=== PATIENT | male | born 1970 | race Two or more races ===

== ENCOUNTER 2020-06-10 17:05 | Observation (INO) | payer OTHER, SELFPAY ==
[2020-06-10 17:09] VITALS: BP 122/88; PULSE 75; RESP 24; TEMP 36.9; O2SAT 97; BMI 33.9
[2020-06-10 17:42] VITALS: PULSE 70
--- NOTE | 2020-06-10 17:48 | ECG_ITS ---
Test Reason : intermittent chest pain Blood Pressure : / mmHG Vent. Rate : 075 BPM Atrial Rate : 075 BPM P-R Int : 148 ms QRS Dur : 096 ms QT Int : 410 ms P-R-T Axes : 036 -19 141 degrees QTc Int : 457 ms Normal sinus rhythm Possible Left atrial enlargement ST & Marked T wave abnormality, consider lateral ischemia (could be from LVH) Abnormal ECG When compared with ECG of 06-MAY-2018 13:08, Lateral ST-T changes more prominent. Referred By: Joni Fletcher Electronically Signed By:AMANDA MCKEE
--- NOTE | 2020-06-10 18:03 | ED_ITS ---
HPI - Chest Pain General Chief Complaint: Chest Pain Stated Complaint: Chest pressure Time Seen by Provider: 06/10/20 17:42 Source: patient Mode of arrival: ambulatory Limitations: no limitations History of Present Illness HPI narrative: Patient presents to ED for intermittent chest tightness/pressure since yesterday. Patient took 120 of aspirin this morning. 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 Patient states chest pain has significantly improved since coming to the ED. patient denies any swelling of lower extremity, coughing up blood, diarrhea, fever, or chills. MD complaint: chest pain Related Data Home Medications Medication Instructions Recorded Confirmed albuterol sulfate 90 mcg/actuation 2 puff INHALATION Q6H PRN 02/20/20 06/11/20 aerosol inhaler fluticasone propionate 220 1 puff INHALATION BID 02/20/20 06/11/20 mcg/actuation HFA aerosol inhaler fluticasone propionate 50 2 spray INTRANASAL DAILY 02/20/20 06/11/20 mcg/actuation nasal spray,suspension metformin 500 mg tablet 500 mg PO DAILY 02/20/20 06/11/20 verapamil 120 mg 24 hr 120 mg PO TID cap 02/20/20 06/11/20 capsule,extended release Previous Rx's Medication Instructions Recorded atorvastatin 20 mg tablet 20 mg PO BEDTIME 90 Days #90 tab 03/24/20 lancets 28 gauge 28 gauge TOPICAL TID #100 cap 06/08/20 Allergies Allergy/AdvReac Type Severity Reaction Status Date / Time Iodinated Contrast Media Allergy Mild HIVES Verified 06/10/20 17:09 [IV CONTRAST] Contrast Dye Allergy Unknown Hives Verified 06/10/20 17:09 Review of Systems Review of Systems: Yes all other systems are reviewed and are negative Constitutional: Constitutional: Reports as per HPI and Reports no additional constitutional complaints Eyes: Eyes: Reports as per HPI and Reports no additional eye complaints ENT: Reports system reviewed and no additional complaints, except as documented and Reports as per HPI Cardiovascular: Cardiovascular: Reports as per HPI, Reports no additional cardiovascular complaints and Reports chest pain Respiratory: Respiratory: Reports as per HPI and Reports no additional respiratory complaints Gastrointestinal: Gastrointestinal: Reports as per HPI and Reports no additional gastrointestinal complaints Musculoskeletal: Musculoskeletal: Reports no additional musculoskeletal complaints and Reports as per HPI Neurologic: Reports system reviewed and no additional complaints, except as documented and Reports as per HPI Psychiatric: Psychiatric: Reports no additional psychiatric complaints and Reports as per HPI [facility] Past Medical History Medical History (Updated 06/11/20 @ 01:44 by CALLY Chau) Diabetes Hx of carpal tunnel syndrome Hyperlipidemia Hypertension Obstructive sleep apnea Surgical History Hx of cardiac cath Hx of right inguinal hernia repair Family History Family History (Updated 02/20/20 @ 15:28 by Florecita Jensen [facility]) Paternal Grandfather Heart disease Skin cancer Maternal Grandmother Skin cancer Maternal Grandfather Prostate cancer Father Diabetes Social History Social History Alcohol intake: never Smoked in Last 30 Days: No Use of substances other than those prescribed or required for medical reasons: No Advance Directives: No Advance Directives Information Provided: No Physical Exam Vital Signs: Vital Signs: Last Vital Signs Temp 98.5 F 06/10/20 21:16 Pulse 67 06/10/20 21:16 Resp 18 06/10/20 21:16 BP 132/78 06/10/20 21:16 Pulse Ox 96 06/10/20 21:16 Body Mass Index 33.9 Const: General: cooperative, healthy appearing, comfortable, no acute distress, well developed, alert, awake and Physically active Orientation/co nsciousness: patient oriented x3 HENMT: Head: Yes normal to inspection and Yes No palpable skull fracture present Eyes: General: appearance normal, both eyes and all related structures Neck: Neck: Yes normal visual inspection, Yes full ROM, Yes no lymphadenopathy, Yes no meningeal signs, Yes trachea midline, Yes supple and No tender Chest: Chest palpation & inspection: normal inspection of the chest and normal palpation of entire chest wall Resp: Effort & Inspection: normal respiratory effort and able to speak in complete sentences Auscultation: clear to auscultation bilaterally Cardio: Jugular venous distension: no JVD Heart sounds: S1 normal heart sound present and S2 normal heart sound present GI: Inspection: Yes normal to inspection and No abdominal wall ecchymosis Palpation (GI): Soft to palpation, not firm, nontender, no guarding and not rigid : General: No CVA tenderness and Yes no CVA tenderness Back/Spine/Pelvis: Back: no CVA tenderness, No CVA tenderness and No back tenderness Skin: General skin exam: no rashes or lesions noted and elasticity normal Neuro: General: patient oriented x3, gait normal, no meningeal signs and CN's II-XI intact bilaterally Cranial nerves: Yes CN's II-XII intact bilaterally Extrem: Other: Negative for swelling, pitting edema, or calf pain General: Yes normal to inspection and Yes full ROM Psych: Appearance: grossly normal, well kempt and not disheveled Course Course Course Narrative: Patient will have cardiac evaluation including EKG troponin a nd chest x-ray. Patient given aspirin and nitrates. Patient also be swabbed for COVID-19. Reevaluation(s) Reevaluation #1: Patient's chest pain improved after 1 nitrate. We will get repeat troponin. Time: 18:06 Reevaluation #2: Patient's D-dimer came back elevated. Patient has anaphylactic reaction to IV contrast so patient will need ventilation perfusion scan. Patient COVID swab came back negative. Patient is 2nd troponin did not increase by 50%. Spoke with hospitalist who accepted patient for admission for V/Q scan in the morning due to elevated D-dimer. Presently patient has no chest pain. Time: 01:42 MDM - Chest Pain MDM Narrative Medical decision making narrative: Chest pain. Elevated D-dimer Lab Data Result diagrams: 06/10/20 18:06 06/10/20 18:06 Labs: Lab Results 06/10/20 06/10/20 06/10/20 Range/Units 18:06 18:06 18:06 WBC 8.9 (4.8-10.8) X10*3/uL RBC 5.50 (4.60-5.80) X10*6/uL Hgb 15.2 (14.0-18.0) g/dl Hct 45.0 (42-52) % MCV 81.8 (80-98) fL MCH 27.6 (27.0-33.0) pg MCHC 33.8 (31.0-36.0) g/dl RDW 13.2 (11.0-16.0) % Plt Count 164 (160-400) X10*3/uL MPV 10.3 (9.4-12.4) fL Immature Gran % (Auto) 0.3 (0.0-0.4) % Neut % (Auto) 67.8 (45-73) % Lymph % (Auto) 24.3 (20-40) % [place] % (Auto) 5.8 (2-11) % Eos % (Auto) 1.0 (0-4) % Baso % (Auto) 0.8 (0-2) % Lymph # (Auto) 2.2 (1.2-4.9) X10*3/uL [place] # (Auto) 0.5 (0.1-1.2) X10*3/uL Eos # (Auto) 0.1 (0.0-0.4) X10*3/uL Baso # (Auto) 0.1 (0.0-0.2) X10*3/uL Abs Immat Gran (auto) 0.03 (0.00-0.03) X10*3/uL Absolute Neuts (auto) 6.0 (2.0-8.3) X10*3/uL Absolute Nucleated RBC 0.000 (0.0-0.012) X10*3/uL Nucleated RBC % (auto) 0.0 (0.0-0.2) /100WBC PT 13.5 H (10.8-13.0) SEC INR 1.1 (0.9-1.1) APTT 36.3 (24.1-38.0) SEC D-Dimer 497 NG/ML Sodium 139 (135-145) mmol/L Potassium 3.9 (3.3-5.1) mmol/l Chloride 102 (96-108) mmol/L Carbon Dioxide 29 (22-29) mmol/L Anion Gap 12 (12-20) BUN 12 (9-16) mg/dL Creatinine 0.87 (0.5-1.4) mg/dL Estim Creat Clear Calc 133.5 Estimated GFR > 60 Random Glucose 89 (60-115) mg/dL Calcium 9.1 (8.4-10.2) mg/dL Ferritin 74 (20-250) ng/mL Total Bilirubin 0.5 (0.0-1.0) mg/dL AST 39 H (5-37) U/L ALT 62 H (0-40) U/L Alkaline Phosphatase 73 (39-117) U/L Lactate Dehydrogenase 230 (118-273) U/L Troponin I High Sens (<3.5-35.0) ng/L B-Natriuretic Peptide (<100) pg/mL Total Protein 7.7 (6.5-8.0) g/dL Albumin 4.7 (3.5-5.0) g/dL Procalcitonin ng/mL Coronavirus (PCR) (Negative) Influenza Type A (PCR) (Negative) Influenza Type B (PCR) (Negative) RSV RNA Qual (PCR) (Negative) 06/10/20 06/10/20 06/10/20 Range/Units 18:06 18:06 18:49 WBC (4.8-10.8) X10*3/uL RBC (4.60-5.80) X10*6/uL Hgb (14.0-18.0) g/dl Hct (42-52) % MCV (80-98) fL MCH (27.0-33.0) pg MCHC (31.0-36.0) g/dl RDW (11.0-16.0) % Plt Count (160-400) X10*3/uL MPV (9.4-12.4) fL Immature Gran % (Auto) (0.0-0.4) % Neut % (Auto) (45-73) % Lymph % (Auto) (20-40) % [place] % (Auto) (2-11) % Eos % (Auto) (0-4) % Baso % (Auto) (0-2) % Lymph # (Auto) (1.2-4.9) X10*3/uL [place] # (Auto) (0.1-1.2) X10*3/uL Eos # (Auto) (0.0-0.4) X10*3/uL Baso # (Auto) (0.0-0.2) X10*3/uL Abs Immat Gran (auto) (0.00-0.03) X10*3/uL Absolute Neuts (auto) (2.0-8.3) X10*3/uL Absolute Nucleated RBC (0.0-0.012) X10*3/uL Nucleated RBC % (auto) (0.0-0.2) /100WBC PT (10.8-13.0) SEC INR (0.9-1.1) APTT (24.1-38.0) SEC D-Dimer NG/ML Sodium (135-145) mmol/L Potassium (3.3-5.1) mmol/l Chloride (96-108) mmol/L Carbon Dioxide (22-29) mmol/L Anion Gap (12-20) BUN (9-16) mg/dL Creatinine (0.5-1.4) mg/dL Estim Creat Clear Calc Estimated GFR Random Glucose (60-115) mg/dL Calcium (8.4-10.2) mg/dL Ferritin (20-250) ng/mL Total Bilirubin (0.0-1.0) mg/dL AST (5-37) U/L ALT (0-40) U/L Alkaline Phosphatase (39-117) U/L Lactate Dehydrogenase (118-273) U/L Troponin I High Sens 36.1 H (<3.5-35.0) ng/L B-Natriuretic Peptide 57 (<100) pg/mL Total Protein (6.5-8.0) g/dL Albumin (3.5-5.0) g/dL Procalcitonin 0.06 ng/mL Coronavirus (PCR) NEGATIVE (Negative) Influenza Type A (PCR) NEGATIVE (Negative) Influenza Type B (PCR) NEGATIVE (Negative) RSV RNA Qual (PCR) NEGATIVE (Negative) 06/10/20 Range/Units 21:20 WBC (4.8-10.8) X10*3/uL RBC (4.60-5.80) X10*6/uL Hgb (14.0-18.0) g/dl Hct (42-52) % MCV (80-98) fL MCH (27.0-33.0) pg MCHC (31.0-36.0) g/dl RDW (11.0-16.0) % Plt Count (160-400) X10*3/uL MPV (9.4-12.4) fL Immature Gran % (Auto) (0.0-0.4) % Neut % (Auto) (45-73) % Lymph % (Auto) (20-40) % [place] % (Auto) (2-11) % Eos % (Auto) (0-4) % Baso % (Auto) (0-2) % Lymph # (Auto) (1.2-4.9) X10*3/uL [place] # (Auto) (0.1-1.2) X10*3/uL Eos # (Auto) (0.0-0.4) X10*3/uL Baso # (Auto) (0.0-0.2) X10*3/uL Abs Immat Gran (auto) (0.00-0.03) X10*3/uL Absolute Neuts (auto) (2.0-8.3) X10*3/uL Absolute Nucleated RBC (0.0-0.012) X10*3/uL Nucleated RBC % (auto) (0.0-0.2) /100WBC PT (10.8-13.0) SEC INR (0.9-1.1) APTT (24.1-38.0) SEC D-Dimer NG/ML Sodium (135-145) mmol/L Potassium (3.3-5.1) mmol/l Chloride (96-108) mmol/L Carbon Dioxide (22-29) mmol/L Anion Gap (12-20) BUN (9-16) mg/dL Creatinine (0.5-1.4) mg/dL Estim Creat Clear Calc Estimated GFR Random Glucose (60-115) mg/dL Calcium (8.4-10.2) mg/dL Ferritin (20-250) ng/mL Total Bilirubin (0.0-1.0) mg/dL AST (5-37) U/L ALT (0-40) U/L Alkaline Phosphatase (39-117) U/L Lactate Dehydrogenase (118-273) U/L Troponin I High Sens 30.5 (<3.5-35.0) ng/L B-Natriuretic Peptide (<100) pg/mL Total Protein (6.5-8.0) g/dL Albumin (3.5-5.0) g/dL Procalcitonin ng/mL Coronavirus (PCR) (Negative) Influenza Type A (PCR) (Negative) Influenza Type B (PCR) (Negative) RSV RNA Qual (PCR) (Negative) ECG Data ECG #1: Interpretation: Normal sinus rhythm. Left atrial enlargement. Ventricular rate 75. Pr interval 145. QRS 96. Negative STEMI. Discharge Plan Discharge Clinical Impression: Elevated d-dimer, Chest pain Patient Disposition: Admitted As Inpatient
--- NOTE | 2020-06-10 18:10 | XR_ITS ---
EXAMINATION: PORTABLE CHEST 1 VIEW CLINICAL INFORMATION: Chest pain . COMPARISON: 04/25/2018. TECHNIQUE: Portable frontal view of the chest was obtained. FINDINGS: The lungs are well expanded. No focal infiltrate, effusion, edema, or pneumothorax. Cardiac and mediastinal silhouettes are within normal limits for technique. No acute bony abnormality seen. XR/XR chest 1V IMPRESSION: No evidence of acute disease compared to 04/25/2018.
[2020-06-10 18:11] LABS: MANUAL DIFF FLAG NO
[2020-06-10 18:13] VITALS: BP 150/85; PULSE 75
[2020-06-10 18:13] LABS: Basophils Absolute Auto 0.1 X10*3/uL (0.0-0.2); Basophils Percent Auto 0.8 % (0-2); Eosinophils Absolute Auto 0.1 X10*3/uL (0.0-0.4); Hemoglobin 15.2 g/dl (14.0-18.0); Imm Gran Abs Auto 0.03 X10*3/uL (0.00-0.03); Imm Gran Pct Auto 0.3 % (0.0-0.4); Lymphocytes Absolute Auto 2.2 X10*3/uL (1.2-4.9); Lymphocytes Percent Auto 24.3 % (20-40); Mean Corpuscular HGB Conc 33.8 g/dl (31.0-36.0); Mean Corpuscular Hemoglobin 27.6 pg (27.0-33.0); Mean Corpuscular Volume 81.8 fL (80-98); Mean Platelet Volume 10.3 fL (9.4-12.4); Monocytes Absolute Auto 0.5 X10*3/uL (0.1-1.2); Monocytes Percent Auto 5.8 % (2-11); Neutrophils Percent Auto 67.8 % (45-73); Platelet Count 164 X10*3/uL (160-400); Red Cell Distribution Width 13.2 % (11.0-16.0); White Blood Count 8.9 X10*3/uL (4.8-10.8)
[2020-06-10] MEDS: 0.9 % Sodium Chloride 1,000 ML 999 ML IV (18:13)
[2020-06-10] MEDS: Aspirin Enteric Coated 81 MG TABLET.DR 162 MG PO (18:13)
[2020-06-10] MEDS: Nitroglycerin 0.4 MG TAB.SUBL SUBLINGUAL (18:13)
[2020-06-10 18:22] LABS: INTERNATIONAL NORM RATIO 1.1 (0.9-1.1); Prothrombin Time 13.5 SEC (10.8-13.0)
[2020-06-10 18:25] LABS: Partial Thromboplastin Time 36.3 SEC (24.1-38.0)
[2020-06-10 18:36] LABS: Alanine Aminotransferase 62 U/L (0-40); Albumin Level 4.7 g/dL (3.5-5.0); Alkaline Phosphatase 73 U/L (39-117); Anion Gap 12 (12-20); Aspartate Amino Transferase 39 U/L (5-37); Bilirubin Total 0.5 mg/dL (0.0-1.0); Blood Urea Nitrogen 12 mg/dL (9-16); Calcium 9.1 mg/dL (8.4-10.2); Carbon Dioxide 29 mmol/L (22-29); Chloride 102 mmol/L (96-108); Creatinine Clr Calc Pharmacy 133.5; Estimated Glomerular Filt Rate > 60; Glucose Random 89 mg/dL (60-115); Lactate Dehydrogenase 230 U/L (118-273); Potassium 3.9 mmol/l (3.3-5.1); Sodium 139 mmol/L (135-145); Total Protein 7.7 g/dL (6.5-8.0)
[2020-06-10 18:44] LABS: B Type Natriuretic Peptide 57 pg/mL (<100); Troponin-I High Sensitivity 36.1 ng/L (<3.5-35.0)
[2020-06-10 18:49] VITALS: BP 130/71; PULSE 83; RESP 20; O2SAT 98
[2020-06-10 18:55] LABS: Procalcitonin 0.06 ng/mL
[2020-06-10 18:57] LABS: Ferritin 74 ng/mL (20-250)
[2020-06-10] MEDS: Acetaminophen 325 MG TABLET 650 MG PO (18:57)
[2020-06-10 19:24] LABS: D Dimer 497 NG/ML
[2020-06-10 19:59] LABS: Influenza A PCR NEGATIVE (Negative); Influenza B PCR NEGATIVE (Negative); Resp Syncy Virus RNA Qual PCR NEGATIVE (Negative); SARS COV2 PCR INHOUSE NEGATIVE (Negative)
[2020-06-10 21:16] VITALS: BP 132/78; PULSE 67; RESP 18; TEMP 36.9; O2SAT 96
[2020-06-10 21:58] LABS: Troponin-I High Sensitivity 30.5 ng/L (<3.5-35.0)
--- NOTE | 2020-06-10 22:57 | PM.IMHP ---
History of Present Illness Date of Service: 06/10/20 Chief Complaint: Chest pain This is a 50-year-old male with past medical history of diabetes, hypertension, hyperlipidemia, who presents to the hospital with complaints of chest pain. Patient reports midsternal, 7/10, heavy pain that started yesterday. Pain is nonradiating, associated with shortness of breath on exertion. Resolves at rest. Pain is intermittent, lasting about 30 minutes, and resolving with rest. Usually occurs at random times. Patient denies any palpitation, denies any lower extremity edema, he denies any nausea or vomiting, no abdominal pain, no fevers or chills. He is complaining of urinary retention and difficulty releasing his urine every time he has to pee. On arrival to the ED hemodynamically stable with no significant abnormal vitals Labs are significant for normal WBC, hemoglobin of 15.2, sodium of 139, potassium 3.9 creatinine of 0.87, AST of 39, ALT of 62, high sensitivity troponin of 30.5, increased to 36.1 on repeat, BNP of 57. COVID-19 negative. D-dimer is elevated at 497. Chest x-ray negative for any abnormal findings. Past medical history: Diabetes, hypertension, hyperlipidemia, PAPA, mitral valve regurg Surgical history: Hernia repair, carpal tunnel release, Family history: Significant for heart disease in mom he is not clear at what age she had a heart attack, diabetes, hypertension Social history: Comes from home, distant history of smoking, alcohol use, does not use any illicit drugs Review of Systems Review of Systems: Yes all other systems are reviewed and are negative Neurologic: Reports system reviewed and no additional complaints, except as documented and Reports as per HPI [facility] Medical History (Updated 06/10/20 @ 23:11 by Vania Siddiqui MD) Diabetes Hx of carpal tunnel syndrome Hyperlipidemia Hypertension Obstructive sleep apnea Family History (Updated 02/20/20 @ 15:28 by Florecita Jensen [facility]) Paternal Grandfather Heart disease Skin cancer Maternal Grandmother Skin cancer Maternal Grandfather Prostate cancer Father Diabetes Surgical History Hx of cardiac cath Hx of right inguinal hernia repair Social History Alcohol intake: never Smoked in Last 30 Days: No Use of substances other than those prescribed or required for medical reasons: No Advance Directives: No Advance Directives Information Provided: No Meds Allergies Allergy/AdvReac Type Severity Reaction Status Date / Time Iodinated Contrast Media Allergy Mild HIVES Verified 06/10/20 17:09 [IV CONTRAST] Contrast Dye Allergy Unknown Hives Verified 06/10/20 17:09 Home Medications Medication Instructions Recorded Confirmed Type albuterol sulfate 90 mcg/actuation 2 puff INHALATION Q6H PRN 02/20/20 History aerosol inhaler fluticasone propionate 220 1 puff INHALATION BID 02/20/20 History mcg/actuation HFA aerosol inhaler fluticasone propionate 50 2 spray INTRANASAL DAILY 02/20/20 History mcg/actuation nasal spray,suspension metformin 500 mg tablet 500 mg PO DAILY 02/20/20 History verapamil 120 mg 24 hr 120 mg PO TID cap 02/20/20 History capsule,extended release Physical Exam Vital Signs and Narrative: Vital Signs: Last Vital Signs Temp 98.5 F 06/10/20 21:16 Pulse 67 06/10/20 21:16 Resp 18 06/10/20 21:16 BP 132/78 06/10/20 21:16 Pulse Ox 96 06/10/20 21:16 Body Mass Index 33.9 Const: General: cooperative and no acute distress Orientation/consciousness: patient oriented x3 Eyes: General: appearance normal, both eyes and all related structures Resp: Effort & Inspection: normal respiratory effort and able to speak in complete sentences Cardio: Rate: regular rate Rhythm: regular rhythm GI: Palpation (GI): Soft to palpation Auscultation: normal bowel sounds Skin: General skin exam: no rashes or lesions noted Neuro: General: patient oriented x3 Cognition (Neuro): normal cognition Extrem: General: Yes normal to inspection and Yes no pedal edema Results Labs CBC and Chem 7: 06/10/20 18:06 06/10/20 18:06 Labs: Laboratory Results - last 24 hr 06/10/20 06/10/20 06/10/20 18:06 18:06 18:06 MCV 81.8 MCH 27.6 MCHC 33.8 RDW 13.2 Plt Count 164 MPV 10.3 Immature Gran % (Auto) 0.3 Neut % (Auto) 67.8 Lymph % (Auto) 24.3 [place] % (Auto) 5.8 Eos % (Auto) 1.0 Baso % (Auto) 0.8 Lymph # (Auto) 2.2 [place] # (Auto) 0.5 Eos # (Auto) 0.1 Baso # (Auto) 0.1 Abs Immat Gran (auto) 0.03 Absolute Neuts (auto) 6.0 Absolute Nucleated RBC 0.000 Nucleated RBC % (auto) 0.0 PT 13.5 H INR 1.1 APTT 36.3 D-Dimer 497 Anion Gap 12 Estim Creat Clear Calc 133.5 Estimated GFR > 60 Random Glucose 89 Calcium 9.1 Ferritin 74 Total Bilirubin 0.5 AST 39 H ALT 62 H Alkaline Phosphatase 73 Lactate Dehydrogenase 230 Troponin I High Sens B-Natriuretic Peptide Total Protein 7.7 Albumin 4.7 Procalcitonin Coronavirus (PCR) Influenza Type A (PCR) Influenza Type B (PCR) RSV RNA Qual (PCR) 06/10/20 06/10/20 06/10/20 18:06 18:06 18:49 MCV MCH MCHC RDW Plt Count MPV Immature Gran % (Auto) Neut % (Auto) Lymph % (Auto) [place] % (Auto) Eos % (Auto) Baso % (Auto) Lymph # (Auto) [place] # (Auto) Eos # (Auto) Baso # (Auto) Abs Immat Gran (auto) Absolute Neuts (auto) Absolute Nucleated RBC Nucleated RBC % (auto) PT INR APTT D-Dimer Anion Gap Estim Creat Clear Calc Estimated GFR Random Glucose Calcium Ferritin Total Bilirubin AST ALT Alkaline Phosphatase Lactate Dehydrogenase Troponin I High Sens 36.1 H B-Natriuretic Peptide 57 Total Protein Albumin Procalcitonin 0.06 Coronavirus (PCR) NEGATIVE Influenza Type A (PCR) NEGATIVE Influenza Type B (PCR) NEGATIVE RSV RNA Qual (PCR) NEGATIVE 06/10/20 21:20 MCV MCH MCHC RDW Plt Count MPV Immature Gran % (Auto) Neut % (Auto) Lymph % (Auto) [place] % (Auto) Eos % (Auto) Baso % (Auto) Lymph # (Auto) [place] # (Auto) Eos # (Auto) Baso # (Auto) Abs Immat Gran (auto) Absolute Neuts (auto) Absolute Nucleated RBC Nucleated RBC % (auto) PT INR APTT D-Dimer Anion Gap Estim Creat Clear Calc Estimated GFR Random Glucose Calcium Ferritin Total Bilirubin AST ALT Alkaline Phosphatase Lactate Dehydrogenase Troponin I High Sens 30.5 B-Natriuretic Peptide Total Protein Albumin Procalcitonin Coronavirus (PCR) Influenza Type A (PCR) Influenza Type B (PCR) RSV RNA Qual (PCR) Imaging Radiologist's Impressions: Impressions Chest X-Ray 06/10/20 18:10 IMPRESSION: No evidence of acute disease compared to 04/25/2018. Assessment and Plan (1) Elevated d-dimer: Status: Acute (2) Elevated troponin: Status: Acute (3) Chest pain: Qualifiers: Chest pain type: unspecified Qualified Code(s): R07.9 - Chest pain, unspecified Status: Acute 50-year-old male with past medical history of hypertension, diabetes, who presents to the hospital with complaints of typical chest pain # chest pain - typical - high sensitivity troponin mildly elevated but repeat has no delta - HEART score 5 points placing him at 12-16.6% risk of MACE - risk factors incl;ude HTN, HLD, obesity Plan: - WIll admit to telemetry - Echocardiogram - Consult cardiology for possible cath if appropriate # Elevated D-dimer - Has no risk factors for PE, no recent travel or immobility - Has no lower extremity pain or swelling - Has no tachypnea or tachycardia Plan: - allergic to dye, will obtain V/Q scan in am # HTN - Stable -continue verapamil # DM - LDSSI - hold metformin - Diabetic diet, POC QIDAC DVT: lovenox
--- NOTE | 2020-06-11 | NM_ITS ---
EXAMINATION: NM LUNG IMAGE PERFUSION CLINICAL INFORMATION: Elevated d-dimer and chest pain. COMPARISON: None TECHNIQUE: Following intravenous administration of 4 mCi of 99m Tc MAA, imaging of both lungs were obtained multiple projections. Ventilation study was not performed. FINDINGS: On perfusion exam there is a normal flow seen to all segments of the lungs without any segmental or subsegmental defect. Ventilation study was not performed. NM/NM pul perfusion IMPRESSION: Normal perfusion scan.
[2020-06-11 06:12] VITALS: BP 129/79; PULSE 81; RESP 16; O2SAT 95
[2020-06-11 06:42] LABS: MANUAL DIFF FLAG NO
[2020-06-11 07:07] LABS: Anion Gap 9 (12-20); Blood Urea Nitrogen 12 mg/dL (9-16); Calcium 8.7 mg/dL (8.4-10.2); Carbon Dioxide 31 mmol/L (22-29); Chloride 101 mmol/L (96-108); Estimated Glomerular Filt Rate > 60; Glucose Random 116 mg/dL (60-115); Sodium 137 mmol/L (135-145)
[2020-06-11 07:16] LABS: Basophils Absolute Auto 0.1 X10*3/uL (0.0-0.2); Basophils Percent Auto 0.8 % (0-2); Eosinophils Absolute Auto 0.2 X10*3/uL (0.0-0.4); Eosinophils Percent Auto 2.3 % (0-4); Hemoglobin 14.8 g/dl (14.0-18.0); Imm Gran Abs Auto 0.04 X10*3/uL (0.00-0.03); Imm Gran Pct Auto 0.5 % (0.0-0.4); Lymphocytes Percent Auto 25.4 % (20-40); Mean Corpuscular HGB Conc 32.9 g/dl (31.0-36.0); Mean Corpuscular Hemoglobin 27.7 pg (27.0-33.0); Mean Corpuscular Volume 84.1 fL (80-98); Monocytes Absolute Auto 0.6 X10*3/uL (0.1-1.2); Monocytes Percent Auto 7.2 % (2-11); Neutrophils Percent Auto 63.8 % (45-73); Platelet Count 140 X10*3/uL (160-400); Red Blood Count 5.35 X10*6/uL (4.60-5.80); Red Cell Distribution Width 13.4 % (11.0-16.0); White Blood Count 7.8 X10*3/uL (4.8-10.8)
[2020-06-11 07:21] VITALS: BP 123/87; PULSE 67; RESP 16; TEMP 36.6; O2SAT 97
--- NOTE | 2020-06-11 09:36 | MHC.CM.PN ---
Met with patient and park interpreter in regards to discharge planning. Patient lives alone, ambulates independently and had no services prior to coming to the hospital. PCP verified. Patient denies having a HCP. Information provided but patient is not interested in completing one at this time. No services are anticipated to be needed because patient is not homebound. Patient will ambulate home when medically stable. [place] form explained and signed. Continue to monitor for d/c needs.
[2020-06-11 10:34] VITALS: BP 132/85; PULSE 77
[2020-06-11] MEDS: VerapamiL HCL 120 MG TABLET PO (10:34)
[2020-06-11] MEDS: Enoxaparin Sodium 40 MG/0.4 ML SYRINGE SUBCUT (10:35)
[2020-06-11] MEDS: Fluticasone Propionate Nasal 16 GM SPRAY 2 SPRAY NOSTRIL-B (10:35)
[2020-06-11] MEDS: 0.9 % Sodium Chloride Flush 3 ML SYRINGE IVFLUSH ×2 (10:35)
--- NOTE | 2020-06-11 10:45 | PM.CNCAR ---
History of Present Illness History of Present Illness Date of Service: 06/11/20 Consult reason: chest pain Chief complaint: R/O ACS Narrative: This is a cardiology consultation regarding chest pressure. He is a patient in our office in sees Dr. Davila. Last appointment was in July 2019. He has a background of hypertrophic cardiomyopathy. As he was complaining of palpitations, chest discomfort and shortness of breath, he was referred to [facility] for septal myectomy. But patient states that that never happened. He states that it is because of renal issues but I am not entirely clear what he is referring to as a creatinine is normal currently. Otherwise, he believes that the pandemic also caused some delays. In any case, he did not have the surgery as planned. Current admission is because of symptoms of chest pressure that he felt overnight. Prior to this, he states that he has been fairly okay and able to carry on without any major difficulties. He does not have any known coronary disease or myocardial infarction. In fact he underwent cardiac catheterization in 2018 that showed normal coronary arteries. Review of Systems Review of Systems: Yes all other systems are reviewed and are negative Cardiovascular: Cardiovascular: Reports as per HPI, Reports no additional cardiovascular complaints, Denies acrocyanosis, Denies cool extremities, Denies painful fingertips, Reports chest pain, Denies chest pain at rest, Denies diaphoresis, Denies syncope, Denies irregular heart rhythm, Denies claudication, Denies leg edema, Denies lightheadedness, Denies palpitations and Reports dyspnea Respiratory: Respiratory: Reports dyspnea Neurologic: Reports system reviewed and no additional complaints, except as documented, Reports as per HPI and Denies syncope Endocrine: Endocrine: Denies palpitations PMFSH Past Medical History Medical History (Updated 06/11/20 @ 10:51 by Cali Mueller MD) Diabetes Hx of carpal tunnel syndrome Hyperlipidemia Hypertension Hypertrophic cardiomyopathy Obstructive sleep apnea Family History Family History (Updated 02/20/20 @ 15:28 by Florecita Jensen CMA) Paternal Grandfather Heart disease Skin cancer Maternal Grandmother Skin cancer Maternal Grandfather Prostate cancer Father Diabetes Surgical History Surgical History Hx of cardiac cath Hx of right inguinal hernia repair Social History Social History Alcohol intake: never Smoked in Last 30 Days: No Use of substances other than those prescribed or required for medical reasons: No Advance Directives: No Advance Directives Information Provided: No service: No Current occupational status: unemployed Meds Allergies Allergy/AdvReac Type Severity Reaction Status Date / Time Iodinated Contrast Media Allergy Mild HIVES Verified 06/10/20 17:09 [IV CONTRAST] Contrast Dye Allergy Unknown Hives Verified 06/10/20 17:09 Home Medications Medication Instructions Recorded Confirmed Type albuterol sulfate 90 mcg/actuation 2 puff INHALATION Q6H PRN 02/20/20 06/11/20 History aerosol inhaler fluticasone propionate 220 1 puff INHALATION BID 02/20/20 06/11/20 History mcg/actuation HFA aerosol inhaler fluticasone propionate 50 2 spray INTRANASAL DAILY 02/20/20 06/11/20 History mcg/actuation nasal spray,suspension metformin 500 mg tablet 500 mg PO DAILY 02/20/20 06/11/20 History verapamil 1 tab PO TID 06/11/20 06/11/20 History Physical Exam Vital Signs: Vital Signs: Last Vital Signs Temp 98 F 06/11/20 07:21 Pulse 77 06/11/20 10:34 Resp 16 06/11/20 07:21 BP 132/85 06/11/20 10:34 Pulse Ox 97 06/11/20 07:21 Body Mass Index 33.9 Const: General: cooperative, comfortable and no acute distress Orientation/consciousness: patient oriented x3 HENMT: Other: Unremarkable Neck: Neck: Yes normal visual inspection Chest: Chest palpation & inspection: normal inspection of the chest Resp: Auscultation: clear to auscultation bilaterally, no crackles and no wheezes Cardio: Jugular venous distension: no JVD Palpation: normal PMI Heart sounds: S1 normal heart sound present, S2 normal heart sound present, no gallops, Murmur heart sound present systolic II/ and at the base (Seems to increase with Valsalva) and no rubs GI: Palpation (GI): Soft to palpation Back/Spine/Pelvis: Other: unremarkable Skin: General skin exam: no rashes or lesions noted Neuro: General: patient oriented x3 Extrem: General: Yes no clubbing, cyanosis or edema Psych: Mental Status: mental status grossly normal Results Labs and Meds Result diagrams: 06/11/20 06:37 06/11/20 06:37 Lab results: Laboratory Results - last 24 hr 06/10/20 06/10/20 06/10/20 18:06 18:06 18:06 WBC 8.9 RBC 5.50 Hgb 15.2 Hct 45.0 MCV 81.8 MCH 27.6 MCHC 33.8 RDW 13.2 Plt Count 164 MPV 10.3 Immature Gran % (Auto) 0.3 Neut % (Auto) 67.8 Lymph % (Auto) 24.3 [place] % (Auto) 5.8 Eos % (Auto) 1.0 Baso % (Auto) 0.8 Lymph # (Auto) 2.2 [place] # (Auto) 0.5 Eos # (Auto) 0.1 Baso # (Auto) 0.1 Abs Immat Gran (auto) 0.03 Absolute Neuts (auto) 6.0 Absolute Nucleated RBC 0.000 Nucleated RBC % (auto) 0.0 PT 13.5 H INR 1.1 APTT 36.3 D-Dimer 497 Sodium 139 Potassium 3.9 Chloride 102 Carbon Dioxide 29 Anion Gap 12 BUN 12 Creatinine 0.87 Estim Creat Clear Calc 133.5 Estimated GFR > 60 Random Glucose 89 Calcium 9.1 Ferritin 74 Total Bilirubin 0.5 AST 39 H ALT 62 H Alkaline Phosphatase 73 Lactate Dehydrogenase 230 Troponin I High Sens B-Natriuretic Peptide Total Protein 7.7 Albumin 4.7 Procalcitonin Coronavirus (PCR) Influenza Type A (PCR) Influenza Type B (PCR) RSV RNA Qual (PCR) 06/10/20 06/10/20 06/10/20 18:06 18:06 18:49 WBC RBC Hgb Hct MCV MCH MCHC RDW Plt Count MPV Immature Gran % (Auto) Neut % (Auto) Lymph % (Auto) [place] % (Auto) Eos % (Auto) Baso % (Auto) Lymph # (Auto) [place] # (Auto) Eos # (Auto) Baso # (Auto) Abs Immat Gran (auto) Absolute Neuts (auto) Absolute Nucleated RBC Nucleated RBC % (auto) PT INR APTT D-Dimer Sodium Potassium Chloride Carbon Dioxide Anion Gap BUN Creatinine Estim Creat Clear Calc Estimated GFR Random Glucose Calcium Ferritin Total Bilirubin AST ALT Alkaline Phosphatase Lactate Dehydrogenase Troponin I High Sens 36.1 H B-Natriuretic Peptide 57 Total Protein Albumin Procalcitonin 0.06 Coronavirus (PCR) NEGATIVE Influenza Type A (PCR) NEGATIVE Influenza Type B (PCR) NEGATIVE RSV RNA Qual (PCR) NEGATIVE 06/10/20 06/11/20 06/11/20 21:20 06:37 06:37 WBC 7.8 RBC 5.35 Hgb 14.8 Hct 45.0 MCV 84.1 MCH 27.7 MCHC 32.9 RDW 13.4 Plt Count 140 L MPV 10.0 Immature Gran % (Auto) 0.5 H Neut % (Auto) 63.8 Lymph % (Auto) 25.4 [place] % (Auto) 7.2 Eos % (Auto) 2.3 Baso % (Auto) 0.8 Lymph # (Auto) 2.0 [place] # (Auto) 0.6 Eos # (Auto) 0.2 Baso # (Auto) 0.1 Abs Immat Gran (auto) 0.04 H Absolute Neuts (auto) 5.0 Absolute Nucleated RBC 0.000 Nucleated RBC % (auto) 0.0 PT INR APTT D-Dimer Sodium 137 Potassium 4.0 Chloride 101 Carbon Dioxide 31 H Anion Gap 9 L BUN 12 Creatinine 0.96 Estim Creat Clear Calc 121.0 Estimated GFR > 60 Random Glucose 116 H Calcium 8.7 Ferritin Total Bilirubin AST ALT Alkaline Phosphatase Lactate Dehydrogenase Troponin I High Sens 30.5 B-Natriuretic Peptide Total Protein Albumin Procalcitonin Coronavirus (PCR) Influenza Type A (PCR) Influenza Type B (PCR) RSV RNA Qual (PCR) ECG Attestation: I personally reviewed and interpreted this ECG as follows: Interpretation: EKG shows sinus rhythm, 75/Min; with ST-T changes in the lateral leads with inverted T-waves. The lateral T inversions are more prominent than before. Imaging Radiologist's impression: Impressions Chest X-Ray 06/10/20 18:10 IMPRESSION: No evidence of acute disease compared to 04/25/2018. Pulmonary Perfusion Imaging 06/11/20 00:00 IMPRESSION: Normal perfusion scan. Assessment and Plan (1) Precordial chest pain: Status: Acute (2) Hypertrophic cardiomyopathy: Status: Acute Cardiac studies were reviewed. He underwent cardiac catheterization 2018. At that time, he had normal coronary arteries. He had a resting gradient of 10-15 mm across LVOT but during Valsalva, it increased to 70 mm Hg. There was also post PVC increase in gradient consistent with hypertrophic obstructive cardiomyopathy. Last echocardiogram is from 2018. That showed LVEF of 65 70% with moderate to severe mitral regurgitation and overall consistent with hypertrophic cardiomyopathy. There was moderate a symmetric hypertrophy and systolic anterior motion of mitral valve as well. His current symptoms of chest pressure again probably from the hypertrophic cardiomyopathy itself. Troponins are minimally abnormal from the same. In this setting, no specific inpatient care necessary. He can be discharged home. Follow-up will be arranged in our office.
--- NOTE | 2020-06-11 11:40 | PM.DS ---
DS: Providers Provider Date of Service: 06/11/20 Date of admission: 06/10/20 23:00 Date of discharge: 06/11/20 Primary care physician: Maricarmen Medel MD Admitting clinician: Johnny Sanchez Consults: 06/10/20 23:00 Consult to Cardiology Routine Consulting Provider: Cali Mueller Reason for consultation: typical chest pain, r/o Has provider been notified: No HP as per Dr. Wells This is a 50-year-old male with past medical history of diabetes, hypertension, hyperlipidemia, who presents to the hospital with complaints of chest pain. Patient reports midsternal, 7/10, heavy pain that started yesterday. Pain is nonradiating, associated with shortness of breath on exertion. Resolves at rest. Pain is intermittent, lasting about 30 minutes, and resolving with rest. Usually occurs at random times. Patient denies any palpitation, denies any lower extremity edema, he denies any nausea or vomiting, no abdominal pain, no fevers or chills. He is complaining of urinary retention and difficulty releasing his urine every time he has to pee. On arrival to the ED hemodynamically stable with no significant abnormal vitals Labs are significant for normal WBC, hemoglobin of 15.2, sodium of 139, potassium 3.9 creatinine of 0.87, AST of 39, ALT of 62, high sensitivity troponin of 30.5, increased to 36.1 on repeat, BNP of 57. COVID-19 negative. D-dimer is elevated at 497.Chest x-ray negative for any abnormal findings . Hospital Course. Chest pain resolved, troponins remained flat. Elevated ddimer prompted VQ scan which was negative for PE. Treated with aspirin, statin and a dose of nitro in the ED. Vital signs remained stable. Seen and examined by [facility] [place]. From cardiac standpoint he is ok for discharge. He should continue with his current regime and follow up with cardiology if he needs a repeat echocardiogram. Attending physician on discharge: Johnny Sanchez Discharging clinician: La Nena Hess DS: Diagnosis Discharge Diagnosis (1) Precordial chest pain: Status: Acute (2) Hypertrophic cardiomyopathy: Status: Acute Problem details: Normal cardiac cath in 2018, echo 2018 EF 65-70% DS: Medications Discharge Medications Home Medications: Home Medications Medication Instructions Recorded Confirmed albuterol sulfate 90 mcg/actuation 2 puff INHALATION Q6H PRN 02/20/20 06/11/20 aerosol inhaler fluticasone propionate 220 1 puff INHALATION BID 02/20/20 06/11/20 mcg/actuation HFA aerosol inhaler fluticasone propionate 50 2 spray INTRANASAL DAILY 02/20/20 06/11/20 mcg/actuation nasal spray,suspension metformin 500 mg tablet 500 mg PO DAILY 02/20/20 06/11/20 verapamil 1 tab PO TID 06/11/20 06/11/20 Previous Rx's Medication Instructions Recorded atorvastatin 20 mg tablet 20 mg PO BEDTIME 90 Days #90 tab 03/24/20 lancets 28 gauge 28 gauge TOPICAL TID #100 cap 06/08/20 DS: Summary Time Spent with Patient Time attestation: Total time spent providing and/or coordinating discharge services: greater than 30 minutes Discharge coordination time: Greater than 30 minutes Physical Exam Vital Signs: Vital Signs: Last Vital Signs Temp 98 F 06/11/20 07:21 Pulse 77 06/11/20 10:34 Resp 16 06/11/20 07:21 BP 132/85 06/11/20 10:34 Pulse Ox 97 06/11/20 07:21 Body Mass Index 33.9 Appearing in no acute distress head is normocephalic atraumatic eyes pupils are PERRLA sclera is anicteric mouth throat mucous membranes are intact and moist neck is supple no lymphadenopathy, no JVD noted lung sounds are clear to auscultation heart regular rate rhythm, clear S1, S2 positive bowel sounds, abdomen is soft, nontender neuro patient is alert x3, no focal deficits DS: Data Data Completed and Pending Labs on day of discharge: Laboratory Tests 06/10/20 06/10/20 06/10/20 18:06 18:06 18:06 WBC 8.9 RBC 5.50 Hgb 15.2 Hct 45.0 MCV 81.8 MCH 27.6 MCHC 33.8 RDW 13.2 Plt Count 164 MPV 10.3 Immature Gran % (Auto) 0.3 Neut % (Auto) 67.8 Lymph % (Auto) 24.3 [place] % (Auto) 5.8 Eos % (Auto) 1.0 Baso % (Auto) 0.8 Lymph # (Auto) 2.2 [place] # (Auto) 0.5 Eos # (Auto) 0.1 Baso # (Auto) 0.1 Abs Immat Gran (auto) 0.03 Absolute Neuts (auto) 6.0 Absolute Nucleated RBC 0.000 Nucleated RBC % (auto) 0.0 PT 13.5 H INR 1.1 APTT 36.3 D-Dimer 497 Sodium 139 Potassium 3.9 Chloride 102 Carbon Dioxide 29 Anion Gap 12 BUN 12 Creatinine 0.87 Estim Creat Clear Calc 133.5 Estimated GFR > 60 Random Glucose 89 Calcium 9.1 Ferritin 74 Total Bilirubin 0.5 AST 39 H ALT 62 H Alkaline Phosphatase 73 Lactate Dehydrogenase 230 Troponin I High Sens B-Natriuretic Peptide Total Protein 7.7 Albumin 4.7 Procalcitonin Coronavirus (PCR) Influenza Type A (PCR) Influenza Type B (PCR) RSV RNA Qual (PCR) 06/10/20 06/10/20 06/10/20 18:06 18:06 18:49 WBC RBC Hgb Hct MCV MCH MCHC RDW Plt Count MPV Immature Gran % (Auto) Neut % (Auto) Lymph % (Auto) [place] % (Auto) Eos % (Auto) Baso % (Auto) Lymph # (Auto) [place] # (Auto) Eos # (Auto) Baso # (Auto) Abs Immat Gran (auto) Absolute Neuts (auto) Absolute Nucleated RBC Nucleated RBC % (auto) PT INR APTT D-Dimer Sodium Potassium Chloride Carbon Dioxide Anion Gap BUN Creatinine Estim Creat Clear Calc Estimated GFR Random Glucose Calcium Ferritin Total Bilirubin AST ALT Alkaline Phosphatase Lactate Dehydrogenase Troponin I High Sens 36.1 H B-Natriuretic Peptide 57 Total Protein Albumin Procalcitonin 0.06 Coronavirus (PCR) NEGATIVE Influenza Type A (PCR) NEGATIVE Influenza Type B (PCR) NEGATIVE RSV RNA Qual (PCR) NEGATIVE 06/10/20 06/11/20 06/11/20 21:20 06:37 06:37 WBC 7.8 RBC 5.35 Hgb 14.8 Hct 45.0 MCV 84.1 MCH 27.7 MCHC 32.9 RDW 13.4 Plt Count 140 L MPV 10.0 Immature Gran % (Auto) 0.5 H Neut % (Auto) 63.8 Lymph % (Auto) 25.4 [place] % (Auto) 7.2 Eos % (Auto) 2.3 Baso % (Auto) 0.8 Lymph # (Auto) 2.0 [place] # (Auto) 0.6 Eos # (Auto) 0.2 Baso # (Auto) 0.1 Abs Immat Gran (auto) 0.04 H Absolute Neuts (auto) 5.0 Absolute Nucleated RBC 0.000 Nucleated RBC % (auto) 0.0 PT INR APTT D-Dimer Sodium 137 Potassium 4.0 Chloride 101 Carbon Dioxide 31 H Anion Gap 9 L BUN 12 Creatinine 0.96 Estim Creat Clear Calc 121.0 Estimated GFR > 60 Random Glucose 116 H Calcium 8.7 Ferritin Total Bilirubin AST ALT Alkaline Phosphatase Lactate Dehydrogenase Troponin I High Sens 30.5 B-Natriuretic Peptide Total Protein Albumin Procalcitonin Coronavirus (PCR) Influenza Type A (PCR) Influenza Type B (PCR) RSV RNA Qual (PCR) Discharge Plan Discharge Anticipated Discharge Date/Time: 06/11/20 11:37 Patient Disposition: Home, Self-Care Referrals: Maricarmen Dan MD [Primary Care Provider] - Discharge Medications: Continued atorvastatin 20 mg tablet 20 mg PO BEDTIME 90 Days Qty: 90 RF: 3 lancets [FreeStyle Lancets] 28 gauge misc 28 gauge topical TID Qty: 100 RF: 1 verapamil 120 mg tablet 1 tab PO TID RF: 0 metformin 500 mg tablet 500 mg PO DAILY RF: 0 albuterol sulfate 90 mcg/actuation HFA aerosol inhaler 2 puff inhalation Q6H PRN (Reason: Dyspnea) RF: 0 fluticasone propionate 50 mcg/actuation spray,suspension 2 spray intranasal DAILY RF: 0 Flovent HFA 220 mcg/actuation HFA aerosol inhaler 1 puff inhalation BID RF: 0 Discharge Orders: Discharge Order (Routine); Ordered 06/11/20 Ordered By: La Nena Hess Diet: low salt diet Activity on Discharge: As tolerated Patient Instructions: Chest Pain (ED) Visit Report Forms: Patient Portal Discharge page Care Plan Goals: Take all medications as prescibed Health Concerns: Chest pain Plan of Treatment: Follow up with [facility] as needed and primary care provider
== END 2020-06-11 13:42 | disposition home or self-care (01) ==
LOC: HO.ED 17:52 → HO.EDOVER 23:27
PROVIDERS: Physician Assistant; Admitting Provider Internal Medicine; Emergency Provider Emergency Medicine; PCP Internal Medicine; Visit Provider Hospitalist
DX: R07.89 Other chest pain (principal); R79.89 Other specified abnormal findings of blood chemistry; R77.8 Other specified abnormalities of plasma proteins; I42.2 Other hypertrophic cardiomyopathy; E11.9 Type 2 diabetes mellitus without complications; E78.5 Hyperlipidemia, unspecified; I10 Essential (primary) hypertension; G47.33 Obstructive sleep apnea (adult) (pediatric); R06.00 Dyspnea, unspecified; R94.31 Abnormal electrocardiogram [ECG] [EKG]; Z91.041 Radiographic dye allergy status; Z20.822 Contact with and (suspected) exposure to COVID-19; Z98.890 Other specified postprocedural states; Z86.69 Personal history of other diseases of the nervous system and sense organs; Z87.19 Personal history of other diseases of the digestive system; Z79.84 Long term (current) use of oral hypoglycemic drugs; Z79.899 Other long term (current) drug therapy
CPT/HCPCS: 0241U; 36415; 71045; 78580; 80048; 80053; 82728; 83615; 83880; 84145; 84484; 85025; 85379; 85610; 85730; 93005; 96360; 99219; 99284; A9540; J1650

== ENCOUNTER → 2020-06-13 14:09 | Outpatient (BNVA) | payer OTHER, SELFPAY | PROVIDERS: PCP Internal Medicine; Visit Provider Internal Medicine Cardiovascular Disease | DX: I42.2 Other hypertrophic cardiomyopathy (principal); I10 Essential (primary) hypertension | CPT/HCPCS: 93005; 99212 ==

== ENCOUNTER 2020-07-16 21:01 | Emergency (ER) | payer OTHER, SELFPAY ==
[2020-07-16 21:10] VITALS: BP 114/74; PULSE 82; RESP 18; TEMP 36.8; O2SAT 98; BMI 36.2
[2020-07-16 21:42] LABS: Glucose Urine UA NEG (NEG); Leukocyte Esterase Urine NEG (NEG); Nitrite Urine NEG (NEG); Specific Gravity - Urine 1.025 (1.005-1.025); Urine Blood TRACE (NEG); Urine Ketones NEG (NEG); Urine Protein NEG (NEG-TRACE)
[2020-07-16 21:54] LABS: Appearance Urine CLEAR; Color Urine YELLOW
[2020-07-16 22:09] LABS: RBC Urine 0-2 /HPF (0); WBC Urine 0 /HPF (0-4)
[2020-07-17 00:13] VITALS: BP 135/82; PULSE 82; RESP 16; TEMP 36.7; O2SAT 97
--- NOTE | 2020-07-17 01:19 | ED_ITS ---
HPI - Male Genitourinary General Chief complaint: Abdominal Pain Stated complaint: ABD PAIN Time Seen by Provider: 07/17/20 01:15 Source: patient and deaf interpreter Mode of arrival: ambulatory Limitations: no limitations History of Present Illness HPI Narrative: 50-year-old male history of diabetes, came in for concern of redness on his penis, patient had a history of to incidence of unprotected sex with 2 different partner that the confirmed to him that they were clean from STDs disease, patient declined any urethral discharge, no UTI symptoms, no dysuria or urinary frequency. No fever, no chills, patient admitted that his diabetes under poor control. Patient is concerned today that the symptoms he had is from having unprotected sex with 2 different partners. Related Data Home Medications Medication Instructions Recorded Confirmed albuterol sulfate 90 mcg/actuation 2 puff INHALATION Q6H PRN 02/20/20 06/13/20 aerosol inhaler fluticasone propionate 220 1 puff INHALATION BID 02/20/20 06/13/20 mcg/actuation HFA aerosol inhaler fluticasone propionate 50 2 spray INTRANASAL DAILY 02/20/20 06/13/20 mcg/actuation nasal spray,suspension metformin 500 mg tablet 500 mg PO DAILY 02/20/20 06/13/20 Previous Rx's Medication Instructions Recorded atorvastatin 20 mg tablet 20 mg PO BEDTIME 90 Days #90 tab 03/24/20 lancets 28 gauge 28 gauge TOPICAL TID #100 cap 06/08/20 amoxicillin 500 mg tablet 500 mg PO ONCE 1 Days #4 tab 06/19/20 verapamil 240 mg 24 hr 240 mg PO BID 30 Days #60 cap 07/09/20 capsule,extended release nystatin 1 appl TOPICAL TID #30 g 07/17/20 Allergies Allergy/AdvReac Type Severity Reaction Status Date / Time Iodinated Contrast Media Allergy Mild HIVES Verified 07/16/20 21:10 [IV CONTRAST] Contrast Dye Allergy Unknown Hives Verified 07/16/20 21:10 Review of Systems Review of Systems: All other systems are reviewed and are negative Constitutional: Reports as per HPI and Reports no additional constitutional complaints Eyes: Reports as per HPI and Reports no additional eye complaints Reports system reviewed and no additional complaints, except as documented Cardiovascular: Reports as per HPI and Reports no additional cardiovascular complaints Respiratory: Reports as per HPI and Reports no additional respiratory complaints Gastrointestinal: Reports as per HPI and Reports no additional gastrointestinal complaints Genitourinary: Reports no additional female genitourinary complaints Musculoskeletal: Reports no additional musculoskeletal complaints Skin/Breast: Reports system reviewed and no additional complaints, except as docu Psychiatric: Reports no additional psychiatric complaints Endocrine: Reports no additional endocrine complaints Hematologic/Lymphatic: Reports no additional hematologic/lymphatic complaints Allergic/Immunologic: Reports no additional allergic/immunologic complaints Reports system reviewed and no additional complaints, except as documented and Reports Abnormal speech present [facility] Past Medical History Medical History Diabetes Hx of carpal tunnel syndrome Hyperlipidemia Hypertension Hypertrophic cardiomyopathy Obstructive sleep apnea Surgical History (Reviewed 07/17/20 @ :22 by Eugenia Reyna MD) Hx of cardiac cath Hx of right inguinal hernia repair Family History Family History (Reviewed 07/17/20 @ : by Eugenia Reyna MD) Paternal Grandfather Heart disease Skin cancer Maternal Grandmother Skin cancer Maternal Grandfather Prostate cancer Father Diabetes Social History Social History Alcohol intake: never Advance Directives: No service: No Current occupational status: unemployed Physical Exam Vital Signs: Vital Signs: Last Vital Signs Temp 98.1 F 07/17/20 00:13 Pulse 82 07/17/20 00:13 Resp 16 07/17/20 00:13 BP 135/82 07/17/20 00:13 Pulse Ox 97 07/17/20 00:13 Body Mass Index 36.2 Vital signs have been reviewed as appeared to be correct. Blood pressure in the high range, Heart rate normal. Respiration rate normal. Temperature normal. Oxygen saturation normal. Appearance: Alert. Oriented X3. No acute distress. Head: Normal external exam. Normocephalic. Atraumatic. No Lora signs noted. No raccoon eyes noted Eyes: PERRLA. EOMI. Conjunctiva and sclera normal. Eyelids normal. ENT: TM's Normal. Pharynx normal. Uvula midline. Moist mucous membranes. No trismus noted. No drooling noted. No muffled voice noted. Neck: Normal inspection. Neck supple. FROM. No adenopathy. Thyroid Normal. No meningeal signs. No neck mass noted. CVS: Normal heart rate and rhythm. Heart sound normal. No murmurs noted. Pulses normal throughout. Respiratory: No respiratory distress. Painless inspiration. Breath sounds normal. No wheezes/rales/rhonchi noted. Chest nontender. No accessory muscle usage noted or decreased air movement noted. Abdomen: Soft and nontender. Bowel sounds normal in all 4 quadrants. No distention noted. No organomegaly noted. No visible injury noted. : Uncircumcised, foreskin is easily retracted, redness of the glans of penis, otherwise no lesion or rashes, no lymph node enlargement. Testicular exam is nontender, intact cremasteric reflex. Back: No CVA tenderness. Full range of motion noted. Skin: Skin warm and dry. Normal skin color. Normal skin turgor. No rashes/lesions/lacerations noted. Extremities: No lower extremity edema. Extremities exhibit normal range of motion. Extremities nontender. Neuro: Oriented X 3. No motor deficit. No sensory deficit. Reflexes normal. Course Course Course Narrative: Diabetic patient presented with balanitis will start patient on nystatin as, patient was educated for better diabetes control. Patient had history of unprotected sex with 2 partners, no typical symptoms for STDs, well test urine for STDs. MDM - Male Genitourinary Lab Data Labs: Lab Results 07/16/20 Range/Units 21:25 Urine Color YELLOW Urine Appearance CLEAR Urine pH 6.0 (5.0-8.0) Ur Specific [place] 1.025 (1.005-1.025) Urine Protein NEG (NEG-TRACE) MG/DL Urine Glucose (UA) NEG (NEG) MG/DL Urine Ketones NEG (NEG) MG/DL Urine Blood TRACE (NEG) Urine Nitrite NEG (NEG) Ur Leukocyte Esterase NEG (NEG) Urine RBC 0-2 (0) /HPF Urine WBC 0 (0-4) /HPF Ur Squamous Epith Cells NONE /LPF Urine Bacteria NONE /LPF Discharge Plan Discharge Clinical Impression: Balanitis Patient Disposition: Home, Self-Care Instructions: Balanitis (ED) Prescriptions: New nystatin 100,000 unit/gram ointment 1 appl topical TID Qty: 30 RF: 0 No Action atorvastatin 20 mg tablet 20 mg PO BEDTIME 90 Days Qty: 90 RF: 3 lancets [FreeStyle Lancets] 28 gauge misc 28 gauge topical TID Qty: 100 RF: 1 amoxicillin 500 mg tablet 500 mg PO ONCE 1 Days Qty: 4 RF: 0 verapamil 240 mg capsule,ext rel. pellets 24 hr 240 mg PO BID 30 Days Qty: 60 RF: 5 metformin 500 mg tablet 500 mg PO DAILY RF: 0 albuterol sulfate 90 mcg/actuation HFA aerosol inhaler 2 puff inhalation Q6H PRN (Reason: Dyspnea) RF: 0 fluticasone propionate 50 mcg/actuation spray,suspension 2 spray intranasal DAILY RF: 0 Flovent HFA 220 mcg/actuation HFA aerosol inhaler 1 puff inhalation BID RF: 0 Referrals: Maricarmen Dan MD [Primary Care Provider] - 2 days
[2020-07-17 01:37] VITALS: BP 144/100; PULSE 71; RESP 16; TEMP 37; O2SAT 99
[2020-07-17 01:41] LABS: Glucose, Whole Blood 133 mg/dL (60-115)
[2020-07-17 02:00] VITALS: BP 143/84; PULSE 84; RESP 18; O2SAT 100
--- NOTE | 2020-07-17 02:04 | PC.NURSE ---
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 unsure if able to be pulled from floor.
[2020-07-18 16:12] LABS: C. trachomatis RNA TMA NOT DETECTED (NOT DETECTED); N. gonorrhoeae RNA TMA NOT DETECTED (NOT DETECTED)
== END 2020-07-17 02:14 | disposition home or self-care (01) ==
PROVIDERS: Emergency Provider Emergency Medicine; PCP Internal Medicine
DX: N48.1 Balanitis (principal); R10.30 Lower abdominal pain, unspecified; E11.9 Type 2 diabetes mellitus without complications; I10 Essential (primary) hypertension; Z79.899 Other long term (current) drug therapy; Z79.84 Long term (current) use of oral hypoglycemic drugs; Z20.2 Contact with and (suspected) exposure to infections with a predominantly sexual mode of transmission
CPT/HCPCS: 36415; 81001; 82947; 87491; 87591; 99283; 99284

== ENCOUNTER → 2020-07-23 12:57 | Outpatient (REF) | payer OTHER, SELFPAY ==
--- NOTE | 2020-07-23 13:00 | CA_ITS ---
Transthoracic Echocardiogram Patient (Last, First, Middle): Jefe Huddleston, Gender: Male Date of : 1970 Age: 50 Procedure Date: 07/23/2020 Procedure Type: Transthoracic Echocardiogram Location: OP Height: 180.34 cm Weight: 113.4 kg BSA: 2.32 m2 Heart Rate: bpm BP: 139 / 80 mmHg Assistant Nurse Manager: DOT Referring MD: Donato Davila MD Symptoms: I42.2 - Other hypertrophic cardiomyopathy Study Quality: Fair ECG Rhythm: Sinus Conclusions: - The left ventricular systolic function is normal. The visually estimated ejection fraction is between 65-70%. - Moderate to severe concentric left ventricular hypertrophy. Septal thickness- 1.4 cm. Posterior wall - 1.4 cm. - Peak resting LV outflow tract gradient 18 mm Hg; with Valsalva 75 mm Hg. - Left ventricular global endocardial peak longitudinal strain 14.6% (mildly reduced). - No obvious valvular pathology seen on this study. Findings Left Ventricle Normal left ventricular cavity size. The left ventricular systolic function is normal. The visually estimated ejection fraction is between 65-70%. E/E prime ratio is between 8 and 15 consistent with indeterminate filling pressures. Evidence suggests grade I (mild) diastolic dysfunction. Moderate to severe concentric left ventricular hypertrophy. Septal thickness- 1.4 cm. Posterior wall - 1.4 cm. Peak resting LV outflow tract gradient 18 mm Hg; with Valsalva - 75 mm Hg. Left ventricular global endocardial peak longitudinal strain -14.6% (mildly reduced). Right Ventricle Normal right ventricular cavity size and systolic function. Atria The left atrium is mildly dilated. The right atrium is normal in size. Aortic Valve There is a normal trileaflet aortic valve. There is no aortic valve stenosis. There is trace (trivial) aortic valve regurgitation. Mitral Valve The mitral valve appears normal. There is trace mitral valve regurgitation. There is no mitral valve stenosis. Pulmonic Valve The pulmonic valve was not well visualized. Tricuspid Valve There is trace tricuspid valve regurgitation. The pulmonary artery systolic pressure is normal. Great Vessels The aortic annulus, sinuses of valsalva, and asc aorta are normal in size. Venous The inferior vena cava is normal in size and collapses greater than 50% with inspiration. Pericardium/Pleural There is no evidence of pericardial effusion. Prior Study Comparison Changes noted compared to prior study dated: 05/06/2018. Mitral regurgitation seems less prominent. Recommendations, Care & Conclusions No obvious valvular pathology seen on this study. Measurements M-Mode Liner Measurements Normals - Women/Men AOV Cusps: 2.80 1.5-2.6 cm/m2 2D Linear Measurements IVSd: 1.44 0.6-0.9/0.6-1.0 cm LVIDd: 5.12 3.9-5.3/4.2-5.9 cm LVIDd Index: 2.21 2.4-3.2/2.2-3.1 cm/m2 LVIDs: 2.94 2.0-3.6 cm LVPWd: 1.45 0.7-1.1 cm Ao Root: 3.50 2.1-3.5 cm LA Diam: 3.50 2.7-3.8/3.0-4.0 cm LAIDs Index: 1.51 1.5-2.3 cm/m2 LV Mass: 394.89 67-162/88-224 g LV Mass Index: 170.21 43-95/49-115 g/m2 LVOT Diam: 2.30 3.0+(-)1.3 cm 2D Systolic Function EF 4C: 63.20 >55% EF 2C: 55.50 >55% EF BiP: 58.60 >55% Mitral Valve MV Pk E: 0.74 MV PK A: 0.91 MV Decel Time: 345.00 E/A: 0.80 E'Lateral: 8.81 E'Medial: 5.00 E/E' Med: 14.70 E/E' Lat: 8.40 PHT: 101.00 MVA PHT: 2.18 Decel Jenkins: 2.14 Aortic Valve AoV Pk Flakito: 2.73 AoV Mn Flakito: 1.93 AoV VTI: 0.56 AoV Pk Grad: 30.00 Aov Mn Grad: 17.00 PATSY Cont.VTI: 3.01 LVOT LVOT Pk Flakito: 2.17 LVOT Mn Flakito: 1.64 LVOT VTI: 0.41 LVOT Pk Grad: 19.00 LVOT Mn Grad: 12.00 LVOT Diam: 2.30 LVOT Area: 4.15 Diastolic Function MV Pk E: 0.74 MV Pk A: 0.91 E/A: 0.80 E'Medial: 5.00 E/E' Med: 14.70 E' Laterial: 8.81 E/E' Lat: 8.40 Tricuspid Valve RA Press: 3.00 Great Vessels Aorta Ao Root-2D: 3.50 2.0-3.7 cm Ao Asc: 3.50 2.1-3.4 cm Ao Arch: 2.60 Pulmonary Valve PV Pk Flakito: 1.22 Peak PV Grad: 6.00 Updated in Other Vendor System with Status of Final Cali Mueller MD electronically signed on 07/24/2020 4:11:26 PM with status of Final
== END ==
LOC: HO.CARD 12:57
PROVIDERS: Visit Provider Internal Medicine Cardiovascular Disease
DX: R07.2 Precordial pain (principal); I10 Essential (primary) hypertension; I42.2 Other hypertrophic cardiomyopathy
CPT/HCPCS: 93306; 93356

== ENCOUNTER → 2020-08-23 10:37 | Outpatient (BNVA) | payer OTHER, SELFPAY | PROVIDERS: PCP Internal Medicine; Visit Provider Internal Medicine Cardiovascular Disease | DX: I42.1 Obstructive hypertrophic cardiomyopathy (principal) | CPT/HCPCS: 99212 ==

== ENCOUNTER 2020-08-30 20:59 | Emergency (ER) | payer OTHER, SELFPAY ==
--- NOTE | ~2020-08-30 | XR_ITS ---
EXAMINATION: XR CHEST CLINICAL INFORMATION: Shortness of breath COMPARISON: 04/25/2019 and 06/10/2020 TECHNIQUE: Frontal view of the chest was obtained. FINDINGS: Normal symmetric lung volumes. No parenchymal consolidation. No pleural effusion. No pneumothorax. Cardiomediastinal silhouette and pulmonary vascularity are within normal limits. No acute osseous abnormalities. XR/XR chest 1V IMPRESSION: Unremarkable examination.
[2020-08-30 21:05] VITALS: BP 153/86; PULSE 82; RESP 18; TEMP 36.7; O2SAT 95; BMI 30.1
[2020-08-30 21:31] LABS: COVID-19 Test Negative (Negative); IDNOW Serial# 9DD0AD1C
[2020-08-30 22:09] VITALS: BP 144/89; PULSE 81; RESP 17; O2SAT 95
--- NOTE | 2020-08-30 22:10 | PC.NURSE ---
Pt resting on stretcher in NAD, breathing with ease on RA. Pt aao4, reports shortness of breath and lungs feel tight for the past 3 days. He has used his rescue inhaler in the morning and night for the past two days without feeling much relief. Pt states he believes this might be related to pollen allergies but isn't sure. Pt speaking in complete clear sentences. Pt stretcher in lowest locked position, rails raised, call wray within reach.
[2020-08-30 22:34] VITALS: BP 145/85; PULSE 80; RESP 18; TEMP 37.1; O2SAT 95
--- NOTE | 2020-08-30 22:49 | ED.SOB ---
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 He states that his ?lungs hurt and feel like they are being squeezed?. In addition, patient states that he has had chest discomfort as well then improves with lying back in gets worse with sitting up, but states that this is been consistent for weeks now. He endorses that he there are plans for a cardiac procedure that he describes as ?shaving?. Otherwise, he denies any nausea, vomiting, abdominal pain, urinary symptoms. Related Data Home Medications Medication Instructions Recorded Confirmed albuterol sulfate 90 mcg/actuation 2 puff INHALATION Q6H PRN 02/20/20 08/23/20 aerosol inhaler fluticasone propionate 220 1 puff INHALATION BID 02/20/20 08/23/20 mcg/actuation HFA aerosol inhaler fluticasone propionate 50 2 spray INTRANASAL DAILY 02/20/20 08/23/20 mcg/actuation nasal spray,suspension metformin 500 mg tablet 500 mg PO DAILY 02/20/20 08/23/20 Previous Rx's Medication Instructions Recorded atorvastatin 20 mg tablet 20 mg PO BEDTIME 90 Days #90 tab 03/24/20 amoxicillin 500 mg tablet 500 mg PO ONCE 1 Days #4 tab 06/19/20 verapamil 240 mg 24 hr 240 mg PO BID 30 Days #60 cap 07/09/20 capsule,extended release nystatin 1 appl TOPICAL TID #30 g 07/17/20 blood sugar diagnostic #100 ea 07/22/20 escitalopram oxalate 5 mg tablet 5 mg PO DAILY 30 Days #30 tab 07/24/20 fluconazole 150 mg tablet 150 mg PO Q3D #2 tab 07/24/20 lancets 28 gauge 28 gauge TOPICAL TID #100 cap 08/13/20 prednisone 40 mg PO DAILY 4 Days #8 tab 08/31/20 Allergies Allergy/AdvReac Type Severity Reaction Status Date / Time Iodinated Contrast Media Allergy Mild HIVES Verified 07/19/20 12:17 [IV CONTRAST] Contrast Dye Allergy Unknown Hives Verified 07/19/20 12:17 Review of Systems Review of Systems: Pertinent positives and negatives as stated in HPI and 10 point review of systems is otherwise negative. [facility] Past Medical History Source: nursing notes reviewed Medical History Anxiety and depression Diabetes mellitus HOCM (hypertrophic obstructive cardiomyopathy) Hospital discharge follow-up Hx of carpal tunnel syndrome Hyperlipidemia Hypertension Hypertrophic cardiomyopathy Obstructive sleep apnea Surgical History Hx of cardiac cath Hx of right inguinal hernia repair Family History Family History Paternal Grandfather Heart disease Skin cancer Maternal Grandmother Skin cancer Maternal Grandfather Prostate cancer Father Diabetes Social History Social History Alcohol intake: never Advance Directives: No Advance Directives Information Provided: No service: No Current occupational status: unemployed Physical Exam Vital Signs: Vital Signs: Last Vital Signs Temp 98.7 F 08/30/20 22:34 Pulse 95 08/31/20 05:11 Resp 20 08/31/20 05:11 BP 126/80 08/31/20 05:11 Pulse Ox 95 08/31/20 05:11 Body Mass Index 30.1 VITAL SIGNS: Reviewed. GENERAL: Well developed, well nourished, in no acute distress. HEAD: Normocephalic/atraumatic NOSE: Nares patent bilateral OROPHARYNX: no oral lesions noted, posterior pharynx clear NECK: Supple, no adenopathy LUNGS: Normal breath sounds but noted to be diminished, no wheezing noted, no tachypnea. SpO2<95> CARDIOVASCULAR: Regular rate and rhythm without noted murmurs ABDOMEN: Obese, Soft, non-tender, non-distended with bowel sounds. NEUROLOGIC: Alert and oriented x 4. Course Course Course Narrative: This is a 50-year-old male with increasing dyspnea on exertion. Treatment for suspected mild asthma exacerbation as well as labs, chest x-ray, as well as EKG were obtained. On review of all investigations there were no acute findings. Specifically, EKG and high sensitivity troponin were consistent with prior evaluations on comparison. On initial re-evaluation after patient received steroids and 1st albuterol treatment patient stated he had modest improvement. The decision was made to proceed with a 5 mg 2nd albuterol treatment. Patient then re-evaluated after the 2nd albuterol treatment and found to be feeling much better and stable for discharge to home with instructions follow-up with his primary care provider as well as Cardiology. Reevaluation(s) Reevaluation #1: Increased chest pressure with 2nd dose of albuterol treatment and repeat EKG not significant for any acute changes other than tachycardia. This case was discussed with Cardiology with comparison EKGs and recommendation was that these were nonspecific findings. Patient had gradual resolution of symptoms after affects of albuterol resolved. Time: 02:45 MDM - SOB/Dyspnea Lab Data Result diagrams: 08/30/20 23:17 08/30/20 23:17 Labs: Lab Results 08/30/20 08/30/20 08/30/20 Range/Units 21:11 23:17 23:17 WBC 8.1 (4.8-10.8) X10*3/uL RBC 5.01 (4.60-5.80) X10*6/uL Hgb 14.1 (14.0-18.0) g/dl Hct 41.2 L (42-52) % MCV 82.2 (80-98) fL MCH 28.1 (27.0-33.0) pg MCHC 34.2 (31.0-36.0) g/dl RDW 12.9 (11.0-16.0) % Plt Count 163 (160-400) X10*3/uL MPV 9.7 (9.4-12.4) fL Immature Gran % (Auto) 0.4 (0.0-0.4) % Neut % (Auto) 63.0 (45-73) % Lymph % (Auto) 28.0 (20-40) % Pacific % (Auto) 6.5 (2-11) % Eos % (Auto) 1.6 (0-4) % Baso % (Auto) 0.5 (0-2) % Lymph # (Auto) 2.3 (1.2-4.9) X10*3/uL Pacific # (Auto) 0.5 (0.1-1.2) X10*3/uL Eos # (Auto) 0.1 (0.0-0.4) X10*3/uL Baso # (Auto) 0.0 (0.0-0.2) X10*3/uL Abs Immat Gran (auto) 0.03 (0.00-0.03) X10*3/uL Absolute Neuts (auto) 5.1 (2.0-8.3) X10*3/uL Absolute Nucleated RBC 0.000 (0.0-0.012) X10*3/uL Nucleated RBC % (auto) 0.0 (0.0-0.2) /100WBC Sodium 139 (135-145) mmol/L Potassium 4.2 (3.3-5.1) mmol/L Chloride 104 (96-108) mmol/L Carbon Dioxide 26 (22-29) mmol/L Anion Gap 13 (12-20) BUN 13 (9-16) mg/dL Creatinine 0.89 (0.5-1.4) mg/dL Estim Creat Clear Calc 123.3 Estimated GFR > 60 Random Glucose 249 H D (60-115) mg/dL Calcium 9.4 D (8.4-10.2) mg/dL Total Bilirubin 0.4 (0.0-1.0) mg/dL AST 33 (5-37) U/L ALT 57 H (0-40) U/L Alkaline Phosphatase 70 (39-117) U/L Troponin I High Sens (<3.5-35.0) ng/L B-Natriuretic Peptide (<100) pg/mL Total Protein 7.6 (6.5-8.0) g/dL Albumin 4.3 (3.5-5.0) g/dL COVID-19 ([facility]ELKA) Negative (Negative) COVID-19 Clin Com See Note 08/30/20 Range/Units 23:17 WBC (4.8-10.8) X10*3/uL RBC (4.60-5.80) X10*6/uL Hgb (14.0-18.0) g/dl Hct (42-52) % MCV (80-98) fL MCH (27.0-33.0) pg MCHC (31.0-36.0) g/dl RDW (11.0-16.0) % Plt Count (160-400) X10*3/uL MPV (9.4-12.4) fL Immature Gran % (Auto) (0.0-0.4) % Neut % (Auto) (45-73) % Lymph % (Auto) (20-40) % Pacific % (Auto) (2-11) % Eos % (Auto) (0-4) % Baso % (Auto) (0-2) % Lymph # (Auto) (1.2-4.9) X10*3/uL Pacific # (Auto) (0.1-1.2) X10*3/uL Eos # (Auto) (0.0-0.4) X10*3/uL Baso # (Auto) (0.0-0.2) X10*3/uL Abs Immat Gran (auto) (0.00-0.03) X10*3/uL Absolute Neuts (auto) (2.0-8.3) X10*3/uL Absolute Nucleated RBC (0.0-0.012) X10*3/uL Nucleated RBC % (auto) (0.0-0.2) /100WBC Sodium (135-145) mmol/L Potassium (3.3-5.1) mmol/L Chloride (96-108) mmol/L Carbon Dioxide (22-29) mmol/L Anion Gap (12-20) BUN (9-16) mg/dL Creatinine (0.5-1.4) mg/dL Estim Creat Clear Calc Estimated GFR Random Glucose (60-115) mg/dL Calcium (8.4-10.2) mg/dL Total Bilirubin (0.0-1.0) mg/dL AST (5-37) U/L ALT (0-40) U/L Alkaline Phosphatase (39-117) U/L Troponin I High Sens 33.3 (<3.5-35.0) ng/L B-Natriuretic Peptide 58 (<100) pg/mL Total Protein (6.5-8.0) g/dL Albumin (3.5-5.0) g/dL COVID-19 (VIELKA) (Negative) COVID-19 Clin Com ECG Data Attestation: I personally reviewed and interpreted this ECG as follows: Prior ECG tracings: available for review (06/10/2020 no acute changes on comparison) Ischemic changes: t wave inversions (V5, V6, lead 1) Interpretation: Sinus rhythm, HR -82, no evidence of acute ischemia, NJ/QTC are within normal limits. QRS-102 Discharge Plan Discharge Clinical Impression: Asthma exacerbation Patient Disposition: Home, Self-Care Instructions: Asthma (ED) Additional Instructions: Reanude todos los medicamentos caseros seg?n lo prescrito. Marlon un seguimiento con cleaning proveedor de atenci?n primaria en los pr?ximos 2-3 d?as para gerber reevaluaci?n. No dude en volver al servicio de urgencias por cualquier empeoramiento amina de raf s?ntomas. Prescriptions: New prednisone 20 mg tablet 40 mg PO DAILY 4 Days Qty: 8 RF: 0 No Action atorvastatin 20 mg tablet 20 mg PO BEDTIME 90 Days Qty: 90 RF: 3 amoxicillin 500 mg tablet 500 mg PO ONCE 1 Days Qty: 4 RF: 0 verapamil 240 mg capsule,ext rel. pellets 24 hr 240 mg PO BID 30 Days Qty: 60 RF: 5 (DME) FreeStyle Test Strip See Rx Instructions .ROUTE .MEDSUPPLY Qty: 100 RF: 11 lancets [FreeStyle Lancets] 28 gauge misc 28 gauge topical TID Qty: 100 RF: 4 nystatin 100,000 unit/gram ointment 1 appl topical TID Qty: 30 RF: 0 fluconazole [Diflucan] 150 mg tablet 150 mg PO Q3D Qty: 2 RF: 0 escitalopram oxalate 5 mg tablet 5 mg PO DAILY 30 Days Qty: 30 RF: 0 metformin 500 mg tablet 500 mg PO DAILY RF: 0 albuterol sulfate 90 mcg/actuation HFA aerosol inhaler 2 puff inhalation Q6H PRN (Reason: Dyspnea) RF: 0 fluticasone propionate 50 mcg/actuation spray,suspension 2 spray intranasal DAILY RF: 0 Flovent HFA 220 mcg/actuation HFA aerosol inhaler 1 puff inhalation BID RF: 0 Referrals: Physician,Unknown [Primary Care Provider] - 2 days Interventions: ED Discharge Assessment Last Done: 08/31/20 05:20 Discharge Date/Time: 08/31/20 05:21 Print Language: Kazakh
--- NOTE | 2020-08-30 22:51 | ECG_ITS ---
Test Reason : SOB Blood Pressure : / mmHG Vent. Rate : 082 BPM Atrial Rate : 082 BPM P-R Int : 154 ms QRS Dur : 102 ms QT Int : 402 ms P-R-T Axes : 043 -21 135 degrees QTc Int : 469 ms Sinus rhythm with occasional Premature ventricular complexes Left ventricular hypertrophy with repolarization abnormality Abnormal ECG When compared with ECG of 10-JUN-2020 17:09, Premature ventricular complexes are now Present Referred By: Tara Hurtado Electronically Signed By:AMANDA MCKEE
--- NOTE | 2020-08-30 23:14 | PC.NURSE ---
pt has diminished bbs in bases, no wheezing auscultated. pt speaking in full sentences.
[2020-08-30] MEDS: Albuterol Sulfate (0.083%) 2.5 MG/3 ML VIAL.NEB 7.5 MG INHALE (23:18)
[2020-08-30 23:19] VITALS: PULSE 80; O2SAT 96
[2020-08-30] MEDS: methylPREDNISolone Sod Succ 125 MG/2 ML VIAL IVPUSH (23:26)
[2020-08-30 23:27] LABS: MANUAL DIFF FLAG NO
[2020-08-30 23:28] LABS: Basophils Percent Auto 0.5 % (0-2); Eosinophils Absolute Auto 0.1 X10*3/uL (0.0-0.4); Eosinophils Percent Auto 1.6 % (0-4); Hematocrit 41.2 % (42-52); Hemoglobin 14.1 g/dl (14.0-18.0); Imm Gran Abs Auto 0.03 X10*3/uL (0.00-0.03); Imm Gran Pct Auto 0.4 % (0.0-0.4); Lymphocytes Absolute Auto 2.3 X10*3/uL (1.2-4.9); Mean Corpuscular HGB Conc 34.2 g/dl (31.0-36.0); Mean Corpuscular Hemoglobin 28.1 pg (27.0-33.0); Mean Corpuscular Volume 82.2 fL (80-98); Mean Platelet Volume 9.7 fL (9.4-12.4); Monocytes Absolute Auto 0.5 X10*3/uL (0.1-1.2); Monocytes Percent Auto 6.5 % (2-11); Neutrophils Absolute Auto 5.1 X10*3/uL (2.0-8.3); Platelet Count 163 X10*3/uL (160-400); Red Blood Count 5.01 X10*6/uL (4.60-5.80); Red Cell Distribution Width 12.9 % (11.0-16.0); White Blood Count 8.1 X10*3/uL (4.8-10.8)
[2020-08-30 23:55] LABS: Alanine Aminotransferase 57 U/L (0-40); Albumin Level 4.3 g/dL (3.5-5.0); Alkaline Phosphatase 70 U/L (39-117); Anion Gap 13 (12-20); Aspartate Amino Transferase 33 U/L (5-37); Bilirubin Total 0.4 mg/dL (0.0-1.0); Blood Urea Nitrogen 13 mg/dL (9-16); Calcium 9.4 mg/dL (8.4-10.2); Carbon Dioxide 26 mmol/L (22-29); Chloride 104 mmol/L (96-108); Creatinine Clr Calc Pharmacy 123.3; Estimated Glomerular Filt Rate > 60; Glucose Random 249 mg/dL (60-115); Potassium 4.2 mmol/L (3.3-5.1); Sodium 139 mmol/L (135-145); Total Protein 7.6 g/dL (6.5-8.0)
[2020-08-31 00:28] LABS: Troponin-I High Sensitivity 33.3 ng/L (<3.5-35.0)
[2020-08-31 00:43] LABS: B Type Natriuretic Peptide 58 pg/mL (<100)
--- NOTE | 2020-08-31 01:51 | PC.NURSE ---
PT SUPINE ON BED AND WATCHING TV, IN NO DISTRESS. PT NOW FEELS LIKE HE CAN EASILY TAKE A DEEP BREATH.
[2020-08-31 01:52] VITALS: BP 128/83; PULSE 94; RESP 10; O2SAT 94
[2020-08-31] MEDS: Albuterol Sulfate (0.083%) 2.5 MG/3 ML VIAL.NEB 5 MG INHALE (02:19)
[2020-08-31 02:20] VITALS: PULSE 98; O2SAT 97
[2020-08-31 02:56] VITALS: BP 134/92; PULSE 114; RESP 32; O2SAT 96
--- NOTE | 2020-08-31 02:57 | PC.NURSE ---
PT RANG CALL [place], REPORTS CHEST DISCOMFORT AND PALPITATIONS FOLLOWING RESPIRATORY TREATMENT.
--- NOTE | 2020-08-31 02:58 | ECG_ITS ---
Test Reason : CP Blood Pressure : / mmHG Vent. Rate : 105 BPM Atrial Rate : 105 BPM P-R Int : 158 ms QRS Dur : 106 ms QT Int : 392 ms P-R-T Axes : 074 -15 112 degrees QTc Int : 518 ms Sinus tachycardia Possible Left atrial enlargement Left ventricular hypertrophy with repolizeration abnormality. Abnormal ECG When compared with ECG of 30-AUG-2020 23:12, Premature ventricular complexes are no longer Present T wave inversion less evident in Lateral leads Referred By: Tara Hurtado Electronically Signed By:AMANDA MCKEE
--- NOTE | 2020-08-31 04:32 | PC.NURSE ---
PT ASKING WHEN HE CAN BE DISCHARGED. PT AWAKE AND ALERT, SITTING UPRIGHT IN BED AND IN NO DISTRESS.
[2020-08-31 05:11] VITALS: BP 126/80; PULSE 95; RESP 20; O2SAT 95
== END 2020-08-31 05:21 | disposition home or self-care (01) ==
PROVIDERS: Emergency Provider Student in an Organized Health Care Education/Training Program
DX: J45.901 Unspecified asthma with (acute) exacerbation (principal); R07.89 Other chest pain; Z20.822 Contact with and (suspected) exposure to COVID-19; E11.9 Type 2 diabetes mellitus without complications; I10 Essential (primary) hypertension; E78.5 Hyperlipidemia, unspecified; Z79.899 Other long term (current) drug therapy
CPT/HCPCS: 36415; 71045; 80053; 83880; 84484; 85025; 87635; 93005; 94640; 94644; 94645; 96374; 96375; 99284; J2930

== ENCOUNTER 2020-09-16 08:49 | Outpatient (REF) | payer OTHER, SELFPAY | END 2020-09-16 08:50 | disposition home or self-care (01) | LOC: HO.LAB 08:49 | PROVIDERS: Visit Provider Internal Medicine | DX: Z20.822 Contact with and (suspected) exposure to COVID-19 (principal) | CPT/HCPCS: C9803; U0003; U0005 ==

== ENCOUNTER 2021-03-20 12:34 | Outpatient (REF) | payer OTHER, SELFPAY ==
--- NOTE | ~2021-03-20 | XR_ITS ---
EXAMINATION: XR SHOULDER, RIGHT CLINICAL INFORMATION: Pain COMPARISON: None TECHNIQUE: AP external rotation, Grashey, scapular Y, and axillary views of the right shoulder. FINDINGS: There is no fracture or dislocation. The glenohumeral joint is well aligned. The acromioclavicular joint is intact. The visualized lung is clear. The visualized ribs are intact. XR/XR shoulder RT min 2V IMPRESSION: Normal right shoulder.
--- NOTE | ~2021-03-20 | US_ITS ---
EXAMINATION: US VENOUS ULTRASOUND WITH DOPPLER LOWER EXTREMITY, LEFT CLINICAL INFORMATION: Left leg pain COMPARISON: None TECHNIQUE: Ultrasound of the deep veins is performed from the hip to the calf with compression sonography and color and pulse Doppler assessment. Spectral analysis with color-flow imaging is performed. FINDINGS: There is normal venous compression and respiratory variation and augmented flow. The visualized common femoral vein, superficial femoral vein, profunda femoral vein, popliteal vein, and the trifurcation region shows no evidence of deep venous thrombosis. There is no significant popliteal fossa cyst. No popliteal artery aneurysm. US/US venous duplex LE LT IMPRESSION: No acute DVT demonstrated in the left lower extremity.
== END 2021-03-20 12:35 | disposition home or self-care (01) ==
LOC: HO.US 12:34
PROVIDERS: PCP Internal Medicine; Visit Provider Internal Medicine
DX: M79.605 Pain in left leg (principal); M25.511 Pain in right shoulder
CPT/HCPCS: 73030; 93971

== ENCOUNTER 2021-03-26 08:35 | Outpatient (REF) | payer OTHER, SELFPAY ==
[2021-03-26 09:03] LABS: MANUAL DIFF FLAG NO
[2021-03-26 09:54] LABS: Basophils Absolute Auto 0.1 X10*3/uL (0.0-0.2); Basophils Percent Auto 0.6 % (0-2); Eosinophils Absolute Auto 0.1 X10*3/uL (0.0-0.4); Eosinophils Percent Auto 1.6 % (0-4); Hematocrit 47.3 % (42.0-52.0); Hemoglobin 15.8 g/dl (14.0-18.0); Imm Gran Abs Auto 0.04 X10*3/uL (0.00-0.03); Imm Gran Pct Auto 0.5 % (0.0-0.4); Lymphocytes Absolute Auto 1.7 X10*3/uL (1.2-4.9); Lymphocytes Percent Auto 20.4 % (20-40); Mean Corpuscular HGB Conc 33.4 g/dl (31.0-36.0); Mean Corpuscular Hemoglobin 27.9 pg (27.0-33.0); Mean Corpuscular Volume 83.6 fL (80.0-98.0); Mean Platelet Volume 10.6 fL (9.4-12.4); Monocytes Absolute Auto 0.5 X10*3/uL (0.1-1.2); Monocytes Percent Auto 6.6 % (2-11); Neutrophils Absolute Auto 5.69 x10*3/uL (2.0-8.3); Neutrophils Percent Auto 70.3 % (45-73); Platelet Count 161 X10*3/uL (160-400); Red Blood Count 5.66 X10*6/uL (4.60-5.80); Red Cell Distribution Width 12.9 % (11.0-16.0); White Blood Count 8.1 X10*3/uL (4.8-10.8)
[2021-03-26 10:51] LABS: Creatinine Urine 96.06 mg/dL; Microalbum/Creatinine Ratio Ur 98.8 ug/mg cr
[2021-03-26 11:00] LABS: Alanine Aminotransferase 66 U/L (0-40); Albumin Level 4.9 g/dL (3.5-5.0); Alkaline Phosphatase 75 U/L (39-117); Anion Gap 11 (12-20); Aspartate Amino Transferase 40 U/L (5-37); Bilirubin Total 0.7 mg/dL (0.0-1.0); Blood Urea Nitrogen 11 mg/dL (9-16); Calcium 9.4 mg/dL (8.4-10.2); Carbon Dioxide 32 mmol/L (22-29); Chloride 98 mmol/L (96-108); Cholesterol 119 mg/dL; Estimated Glomerular Filt Rate > 60; Glucose Fasting 207 mg/dL (60-99); HDL Cholesterol 25 mg/dL; LDL Cholesterol Calculated 16 mg/dl; Potassium 3.9 mmol/L (3.3-5.1); Sodium 137 mmol/L (135-145); Total Protein 8.1 g/dL (6.5-8.0); Triglycerides 392 mg/dL
== END 2021-03-26 08:36 | disposition home or self-care (01) ==
LOC: HO.LAB 08:35
PROVIDERS: PCP Internal Medicine; Visit Provider Nurse Practitioner Family
DX: E11.9 Type 2 diabetes mellitus without complications (principal); I10 Essential (primary) hypertension
CPT/HCPCS: 36415; 80053; 80061; 82043; 85025

== ENCOUNTER 2021-05-06 13:43 | Outpatient (REF) | payer OTHER, SELFPAY ==
[2021-05-06 18:22] LABS: Appearance Urine CLEAR; Color Urine YELLOW; Glucose Urine UA NEG (NEG); Leukocyte Esterase Urine NEG (NEG); Nitrite Urine NEG (NEG); Specific Gravity - Urine 1.025 (1.005-1.025); UACC Culture Trigger NO; Urine Blood TRACE (NEG); Urine Ketones NEG (NEG); Urine Protein NEG (NEG-TRACE)
[2021-05-06 18:30] LABS: Mucus Urine TRACE /LPF; RBC Urine 0-2 /HPF (0); Squamous Epithelial Cell Urine TRACE /LPF; WBC Urine 0 /HPF (0-4)
== END 2021-05-06 13:44 | disposition home or self-care (01) ==
LOC: HO.LAB 13:43
PROVIDERS: PCP Internal Medicine; Visit Provider Internal Medicine
DX: R10.9 Unspecified abdominal pain (principal)
CPT/HCPCS: 81001

== ENCOUNTER 2021-09-02 15:30 | Outpatient (REF) | payer OTHER, SELFPAY ==
--- NOTE | ~2021-09-02 | XR_ITS ---
EXAMINATION: XR lumbar spine 2-3V CLINICAL INFORMATION: Reason for Exam M54.9 - Dorsalgia, unspecified COMPARISON: Lumbar spine radiographs 11/01/2016 TECHNIQUE: 3 views of the lumbar spine XR/XR lumbar spine 2-3V FINDINGS/IMPRESSION: 5 nonrib-bearing lumbar-type vertebral bodies. Vertebral body heights are maintained. Alignment is maintained. Mild multilevel degenerative disc disease with degenerative endplate spurring and mild loss of disc space height at T11-T12 and T12-L1 similar to prior. Paravertebral soft tissues are unremarkable.
== END 2021-09-02 15:31 | disposition home or self-care (01) ==
LOC: HO.XRAY 15:30
PROVIDERS: PCP Internal Medicine; Visit Provider Nurse Practitioner Family
DX: M54.50 Low back pain, unspecified (principal)
CPT/HCPCS: 72100

== ENCOUNTER 2022-07-01 20:43 | Emergency (ER) | payer OTHER, SELFPAY ==
[2022-07-01 21:02] VITALS: BP 159/97; PULSE 92; RESP 20; TEMP 36.2; O2SAT 95; BMI 34.8
--- NOTE | 2022-07-01 22:28 | ED_ITS ---
HPI - Dental/Oral General Chief complaint: Dental/Oral Stated complaint: dental issue Time Seen by Provider: 07/01/22 22:28 Source: patient Mode of arrival: ambulatory Limitations: no limitations History of Present Illness HPI Narrative: 52-year-old male presents with 2 days of dental pain to his front teeth, and s everal days of bilateral earache and sore throat. He does not report any fevers or chills, but states he is having a difficult time chewing because of his tooth pain. Has not seen a dentist in quite some time. MD Complaint: tooth pain Teeth map: 1. 2. Onset (ago): day(s) (2) Duration: worsening Severity: moderate Severity scale (1-10): 7 Relieving factors: nothing Exacerbating factors: chewing, cold, heat and drinking fluids Context: history of dental caries and poor dental care Associated symptoms: gum swelling, pain with swallowing and sore throat Treatment prior to arrival: none Related Data Previous Rx's Medication Instructions Recorded albuterol sulfate 90 mcg/actuation 2 puff inhalation Q6H PRN Dyspnea 09/02/20 aerosol inhaler 30 days #6.7 grams nystatin 100,000 unit/gram topical 1 appl topical BID 14 days #15 03/20/21 cream grams atorvastatin 20 mg tablet 20 mg PO BEDTIME 90 days #90 tabs 04/11/21 miscellaneous medical supply 2 ea miscellaneous DAILY DX: E11.9 06/01/21 90 days #2 ea verapamil 240 mg 24 hr 240 mg PO BID 30 days #60 caps 07/16/21 capsule,extended release hydrocortisone 1 % topical cream 1 appl topical TID PRN skin 08/07/21 (Cortisone (hydrocortisone)) irritation 2 weeks #28.35 grams blood sugar diagnostic (FreeStyle #100 ea 08/18/21 Test strips) cyclobenzaprine 5 mg tablet 5 mg PO BID PRN muscle spasm #10 01/21/22 tabs diclofenac sodium 1 % topical gel 2 g topical QID PRN pain #100 grams 01/21/22 (Arthritis Pain (diclofenac)) lancets 28 gauge (FreeStyle 28 gauge topical TID #100 caps 01/21/22 Lancets) ibuprofen 400 mg tablet 400 mg PO Q8H PRN pain #20 tabs 06/09/22 metformin 1,000 mg tablet 1,000 mg PO BID 90 days #180 tabs 06/09/22 amoxicillin 875 mg-potassium 1 tab PO Q12H 10 days #20 tabs 07/01/22 clavulanate 125 mg tablet prednisone 20 mg tablet 40 mg PO DAILY 5 days #10 tabs 07/01/22 Allergies Allergy/AdvReac Type Severity Reaction Status Date / Time Contrast Dye Allergy Intermediate Hives Verified 07/01/22 21:05 Iodinated Contrast Media Allergy Mild HIVES Verified 07/01/22 21:05 [IV CONTRAST] Review of Systems Review of Systems: Constitutional: No Fever, No Chills ENT/Mouth: Positive bilateral Ear Pain, No Hoarseness, positive sore throat, positive dental pain Cardiovascular: No Chest Pain, No SOB Respiratory: No Cough, No Dyspnea Gastrointestinal: No Nausea, No Vomiting, No Diarrhea, No abdominal Pain Musculoskeletal: No joint pain, No Myalgias, No Joint Swelling Skin: No Skin lacerations, No rash Neuro: No Weakness, No Numbness, No Dizziness, No Headache Yes all other systems are reviewed and are negative PMFSH Past Medical History Attestation statement: The following information was validated with the patient. Source: old records reviewed Medical History Anxiety and depression Diabetes mellitus HOCM (hypertrophic obstructive cardiomyopathy) Hospital discharge follow-up Hx of carpal tunnel syndrome Hyperlipidemia Hypertension Hypertrophic cardiomyopathy Left leg pain Microalbuminuria Obstructive sleep apnea Physical exam Rash Right shoulder pain Surgical History Hx of cardiac cath Hx of right inguinal hernia repair Family History Family History Paternal Grandfather Heart disease Skin cancer Maternal Grandmother Skin cancer Maternal Grandfather Prostate cancer Father Prostate cancer Mother Diabetes Skin cancer Social History Social History Housing: Apartment Alcohol intake: never Patient Tobacco Use Status: Former Tobacco user Tobacco use type: Cigarette Smoked in Last 30 Days: No e-Cigarette/Vaping Use: Never Used Second Hand Smoke Exposure: No Use of substances other than those prescribed or required for medical reasons: No Advance Directives: No Advance Directives Information Provided: No service: No Current occupational status: employed Cognitive needs: No Hearing needs: No Vision needs: No Physical Exam Vital Signs: Vital Signs: Last Vital Signs Temp 97.2 F 07/01/22 21:02 Pulse 92 07/01/22 21:02 Resp 20 07/01/22 21:02 BP 159/97 H 07/01/22 21:02 Pulse Ox 95 07/01/22 21:02 O2 Del Method 07/01/22 21:02 BMI result Body Mass Index 34.8 Appearance: Alert. Oriented X3. No acute distress. Eyes: Pupils equal, round and reactive to light. EOMI. ENT: Pharynx normal. Bilateral tympanic membranes erythematous, bulging, suppurative without perforation. Canals are intact. no mastoid tenderness noted. Poor dentition throughout. Gingivitis noted from teeth 7 through 10. Multiple dental caries. Multiple missing teeth. Neck: Normal inspection. Neck supple. No cervical lymphadenopathy. No nuchal rigidity. No vertebral tenderness. CVS: Normal heart rate and rhythm. Pulses normal. Respiratory: No respiratory distress. Breath sounds normal. Skin: Skin warm and dry. Normal skin color. Normal skin turgor. Extremities: Gait well-balanced well coordinated. Neuro: No motor deficit. No sensory deficit. Cranial nerves 2-12 intact Course Course Course Narrative: 52-year-old male presents with multiple concerns. Physical exam indicates multiple dental caries, broken teeth, and gingivitis. HEENT exam indicates bilateral otitis media with tympanic membranes that are erythematous bulging and suppurative without perforation. Posterior anterior cervical lymphadenopathy noted. Pharynx is erythematous with bilateral tonsillar swelling without exudates. Patient is able to manage his secretions, no tracheal stridor, lung sounds clear to auscultation all lobes. Patient appears nontoxic, is afebrile. Will treat with Toradol 60 mg IM, and Augmentin for gingivitis, dental infection, bilateral otitis media, and pharyngitis. Patient does understand that if symptoms worsen that he should follow up with primary care physician and or return to the emergency department he also understands that he must follow-up with a dentist. Patient verbalized understanding of and agrees to plan of care discharge home. Medications Administered Discontinued Medications Generic Name Dose Route Start Last Admin Trade Name Freq PRN Reason Stop Dose Admin Amoxicillin/Clavulanate Potassium 875 mg 07/01/22 23:10 07/01/22 23:42 Amoxicillin/Potassium Clav 875 Mg Tablet PO 07/01/22 23:11 875 mg ONCE ONE Administration Ketorolac Tromethamine 60 mg 07/01/22 23:10 07/01/22 23:42 Ketorolac Tromethamine 60 Mg/2 Ml Vial IM 07/01/22 23:11 60 mg ONCE ONE Administration Medical Decision Making Differential Diagnosis Differential Diagnoses: The differential diagnosis associated with the presentation includes Dental caries, dental abscess, gingivitis, otitis media, pharyngitis, COVID, influenza, RSV External Record Review External record reviewed: Inpatient record, Outpatient record and Prior outpatient labs Prescription Management I considered prescription management with: Pain Medication and Antibiotic Chronic Conditions Patient?s care impacted by: Diabetes and Hypertension Discharge Plan Discharge Clinical Impression: Dental caries, Toothache, Bilateral acute otitis media, Pharyngitis Patient Disposition: Home, Self-Care Instructions: Pharyngitis (ED), Ear Infection (ED), Upper Respiratory Infection (ED), Toothache (ED) Additional Instructions: You were evaluated for dental pain, sore throat, and ear pain. Physical exam indicates gingivitis, dental caries, bilateral otitis media and pharyngitis. Please take Augmentin 875 mg twice a day for the next 10 days. You must follow-up with a dentist. Alternate Tylenol 650 mg every 6 hours and Motrin 600 mg every 6 hours as needed for pain and fever management. Consider taking these medications 3 hours apart so you have pain and fever management every 3 hours. Write down what time you take these medications to prevent accidental overdose. Thank you for choosing this emergency department for evaluation. Please follow-up with primary care physician as needed. Return to the emergency department for any new, concerning, or worsening symptoms. Prescriptions: New amoxicillin-pot clavulanate 875-125 mg tablet 1 tab PO Q12H 10 Days Qty: 20 0RF prednisone 20 mg tablet 40 mg PO DAILY 5 Days Qty: 10 0RF No Action albuterol sulfate 90 mcg/actuation HFA aerosol inhaler 2 puff inhalation Q6H PRN (Reason: Dyspnea) 30 Days Qty: 6.7 6RF atorvastatin 20 mg tablet 20 mg PO BEDTIME 90 Days Qty: 90 3RF miscellaneous medical supply Kit 2 ea miscellaneous DAILY 90 Days Qty: 2 1RF Rx Instructions: DIABETIC SHOES size 11 verapamil 240 mg capsule,ext rel. pellets 24 hr 240 mg PO BID 30 Days Qty: 60 1RF Rx Instructions: Please call and schedule cardiology appt (DME) FreeStyle Test Strip See Rx Instructions .ROUTE .MEDSUPPLY Qty: 100 11RF Rx Instructions: Use 1 test strip three times a day lancets [FreeStyle Lancets] 28 gauge misc 28 gauge topical TID Qty: 100 4RF diclofenac sodium [Arthritis Pain (diclofenac)] 1 % gel 2 g topical QID PRN (Reason: pain) Qty: 100 0RF Rx Instructions: apply to single elbow, wrist or hand; for hand includes palm/fingers/back of hand cyclobenzaprine 5 mg tablet 5 mg PO BID PRN (Reason: muscle spasm) Qty: 10 0RF metformin 1,000 mg tablet 1,000 mg PO BID 90 Days Qty: 180 1RF ibuprofen 400 mg tablet 400 mg PO Q8H PRN (Reason: pain) Qty: 20 0RF hydrocortisone [Cortisone (hydrocortisone)] 1 % cream 1 appl topical TID PRN (Reason: skin irritation) 14 Days Qty: 28.35 1RF nystatin 100,000 unit/gram cream 1 appl topical BID 14 Days Qty: 15 0RF Stand Alone Forms: Dental Emergency Numbers Interventions: ED Discharge Assessment Last Done: 07/01/22 23:51 Discharge Date/Time: 07/01/22 23:51
[2022-07-01] MEDS: Ketorolac Tromethamine 60 MG/2 ML VIAL IM (23:42)
[2022-07-01] MEDS: Amoxicillin/Potassium Clav 875 MG TABLET PO (23:42)
--- NOTE | 2022-07-01 23:45 | PC.NURSE ---
pt a&o, no sob or chest pain, medicated per jul. Reviewed discharge instructions with pt. Pt verbalized understanding.
== END 2022-07-01 23:51 | disposition home or self-care (01) ==
PROVIDERS: Emergency Provider Emergency Medicine Emergency Medical Services
DX: K08.89 Other specified disorders of teeth and supporting structures (principal); K02.9 Dental caries, unspecified; H66.93 Otitis media, unspecified, bilateral; J02.9 Acute pharyngitis, unspecified; E11.9 Type 2 diabetes mellitus without complications; I10 Essential (primary) hypertension; E78.5 Hyperlipidemia, unspecified; Z87.891 Personal history of nicotine dependence; Z79.02 Long term (current) use of antithrombotics/antiplatelets; Z79.899 Other long term (current) drug therapy; Z79.84 Long term (current) use of oral hypoglycemic drugs
CPT/HCPCS: 96372; 99284; J1885

== ENCOUNTER 2022-07-11 15:08 | Emergency (ER) | payer OTHER, SELFPAY ==
[2022-07-11 15:43] VITALS: BP 141/93; PULSE 75; RESP 20; TEMP 36.7; O2SAT 96; BMI 34.8
--- NOTE | 2022-07-11 15:47 | ED_ITS ---
HPI - Back Pain/Injury General Chief Complaint: Back Pain/Injury Stated Complaint: lower back pain Time Seen by Provider: 07/11/22 15:24 History of Present Illness HPI Narrative: Patient complains of left low back and upper gluteal pain that began yesterday, pain is worse with movement, it is similar to prior flare-ups of back pain there is no numbness no weakness no tingling no radiation of pain no changes to bowel or bladder no incontinence no dysuria no fever no IV drug use no abdominal pain no chest pain Related Data Previous Rx's Medication Instructions Recorded albuterol sulfate 90 mcg/actuation 2 puff inhalation Q6H PRN Dyspnea 09/02/20 aerosol inhaler 30 days #6.7 grams nystatin 100,000 unit/gram topical 1 appl topical BID 14 days #15 03/20/21 cream grams atorvastatin 20 mg tablet 20 mg PO BEDTIME 90 days #90 tabs 04/11/21 miscellaneous medical supply 2 ea miscellaneous DAILY DX: E11.9 06/01/21 90 days #2 ea verapamil 240 mg 24 hr 240 mg PO BID 30 days #60 caps 07/16/21 capsule,extended release hydrocortisone 1 % topical cream 1 appl topical TID PRN skin 08/07/21 (Cortisone (hydrocortisone)) irritation 2 weeks #28.35 grams blood sugar diagnostic (FreeStyle #100 ea 08/18/21 Test strips) cyclobenzaprine 5 mg tablet 5 mg PO BID PRN muscle spasm #10 01/21/22 tabs diclofenac sodium 1 % topical gel 2 g topical QID PRN pain #100 grams 01/21/22 (Arthritis Pain (diclofenac)) lancets 28 gauge (FreeStyle 28 gauge topical TID #100 caps 01/21/22 Lancets) ibuprofen 400 mg tablet 400 mg PO Q8H PRN pain #20 tabs 06/09/22 metformin 1,000 mg tablet 1,000 mg PO BID 90 days #180 tabs 06/09/22 prednisone 20 mg tablet 40 mg PO DAILY 5 days #10 tabs 07/01/22 amoxicillin 875 mg-potassium 1 tab PO Q12H 10 days #20 tabs 07/09/22 clavulanate 125 mg tablet acetaminophen 500 mg capsule 500 mg PO TID PRN pain #30 caps 07/11/22 cyclobenzaprine 5 mg tablet 5 mg PO TID PRN muscle spasm #10 07/11/22 tabs oxycodone 5 mg tablet 5 mg PO Q6H PRN pain #14 tabs 07/11/22 Allergies Allergy/AdvReac Type Severity Reaction Status Date / Time Contrast Dye Allergy Intermediate Hives Verified 07/01/22 21:05 Iodinated Contrast Media Allergy Mild HIVES Verified 07/01/22 21:05 [IV CONTRAST] [facility] Past Medical History Source: nursing notes reviewed Medical History Anxiety and depression Diabetes mellitus HOCM (hypertrophic obstructive cardiomyopathy) Hospital discharge follow-up Hx of carpal tunnel syndrome Hyperlipidemia Hypertension Hypertrophic cardiomyopathy Left leg pain Microalbuminuria Obstructive sleep apnea Physical exam Rash Right shoulder pain Surgical History Hx of cardiac cath Hx of right inguinal hernia repair Family History Family History Paternal Grandfather Heart disease Skin cancer Maternal Grandmother Skin cancer Maternal Grandfather Prostate cancer Father Prostate cancer Mother Diabetes Skin cancer Social History Social History Housing: Apartment Alcohol intake: never Patient Tobacco Use Status: Former Tobacco user Tobacco use type: Cigarette e-Cigarette/Vaping Use: Never Used Second Hand Smoke Exposure: No Advance Directives: No Advance Directives Information Provided: Yes service: No Current occupational status: employed Cognitive needs: No Hearing needs: No Vision needs: No Physical Exam Vital Signs: Vitals were reviewed no acute abnormality General appearance no acute distress, resting comfortably in the bed Head is normocephalic atraumatic Neck is supple nontender Chest wall nontender Abdomen soft nontender The back had left lower lumbar and upper gluteal tenderness easily reproduced with movement and changing position and standing from the bed There is no focal bony tenderness, the skin of the back is normal there is no redness no rash no wound no swelling No CVA tenderness Extremities full range of motion x4 Neuro gait and balance are normal, interaction comprehension expression are normal, motor is 5 5 x 4, sensation is intact and symmetrical, patient can walk on toes and walk on heels Course Course Course Narrative: Well-appearing patient with musculoskeletal back pain is prescribed analgesics and muscle relaxer No neurologic deficit no changes to bowel or bladder no fever no IV use Discharge Plan Discharge Clinical Impression: Back pain Patient Disposition: Home, Self-Care Additional Instructions: Back pain usually gets better by itself within a week or 2, but it is unpredict able Use Tylenol as needed and went home you can use muscle relaxer or oxycodone if needed, but these medicines cause sleepiness so no driving or working for 8 hours after taking Follow with primary doctor Return any time any worse condition or any concerns, especially weakness in 1 leg or the other or incontinence Prescriptions: New acetaminophen 500 mg capsule 500 mg PO TID PRN (Reason: pain) Qty: 30 0RF cyclobenzaprine 5 mg tablet 5 mg PO TID PRN (Reason: muscle spasm) Qty: 10 0RF oxycodone 5 mg tablet 5 mg PO Q6H PRN (Reason: pain) Qty: 14 0RF Rx Instructions: Partial Fill upon patient request. No Action albuterol sulfate 90 mcg/actuation HFA aerosol inhaler 2 puff inhalation Q6H PRN (Reason: Dyspnea) 30 Days Qty: 6.7 6RF atorvastatin 20 mg tablet 20 mg PO BEDTIME 90 Days Qty: 90 3RF miscellaneous medical supply Kit 2 ea miscellaneous DAILY 90 Days Qty: 2 1RF Rx Instructions: DIABETIC SHOES size 11 verapamil 240 mg capsule,ext rel. pellets 24 hr 240 mg PO BID 30 Days Qty: 60 1RF Rx Instructions: Please call and schedule cardiology appt (DME) FreeStyle Test Strip See Rx Instructions .ROUTE .MEDSUPPLY Qty: 100 11RF Rx Instructions: Use 1 test strip three times a day lancets [FreeStyle Lancets] 28 gauge misc 28 gauge topical TID Qty: 100 4RF diclofenac sodium [Arthritis Pain (diclofenac)] 1 % gel 2 g topical QID PRN (Reason: pain) Qty: 100 0RF Rx Instructions: apply to single elbow, wrist or hand; for hand includes palm/fingers/back of hand cyclobenzaprine 5 mg tablet 5 mg PO BID PRN (Reason: muscle spasm) Qty: 10 0RF metformin 1,000 mg tablet 1,000 mg PO BID 90 Days Qty: 180 1RF ibuprofen 400 mg tablet 400 mg PO Q8H PRN (Reason: pain) Qty: 20 0RF amoxicillin-pot clavulanate 875-125 mg tablet 1 tab PO Q12H 10 Days Qty: 20 0RF prednisone 20 mg tablet 40 mg PO DAILY 5 Days Qty: 10 0RF hydrocortisone [Cortisone (hydrocortisone)] 1 % cream 1 appl topical TID PRN (Reason: skin irritation) 14 Days Qty: 28.35 1RF nystatin 100,000 unit/gram cream 1 appl topical BID 14 Days Qty: 15 0RF Stand Alone Forms: Work/School Release
== END 2022-07-11 16:09 | disposition home or self-care (01) ==
PROVIDERS: Emergency Provider Emergency Medicine; PCP Internal Medicine
DX: M54.50 Low back pain, unspecified (principal); E11.9 Type 2 diabetes mellitus without complications; I10 Essential (primary) hypertension; E78.5 Hyperlipidemia, unspecified; Z79.02 Long term (current) use of antithrombotics/antiplatelets; Z79.899 Other long term (current) drug therapy; Z79.84 Long term (current) use of oral hypoglycemic drugs; Z87.891 Personal history of nicotine dependence
CPT/HCPCS: 99282; 99283

== ENCOUNTER → 2022-08-19 13:43 | Outpatient (BNVA) | payer OTHER, SELFPAY | PROVIDERS: PCP Internal Medicine; Visit Provider Internal Medicine Cardiovascular Disease | DX: I42.1 Obstructive hypertrophic cardiomyopathy (principal); R00.2 Palpitations; I10 Essential (primary) hypertension; Z98.890 Other specified postprocedural states; Z91.14 Patient's other noncompliance with medication regimen; Z91.199 Patient's noncompliance with other medical treatment and regimen due to unspecified reason | CPT/HCPCS: 93005; 99212 ==

== ENCOUNTER → 2022-08-25 15:47 | Outpatient (REF) | payer OTHER, SELFPAY ==
--- NOTE | 2022-08-25 15:50 | CA_ITS ---
Transthoracic Echocardiogram Patient (Last, First, Middle): Jefe Huddleston, Gender: Male Date of : 1970 Age: 52 Procedure Date: 08/25/2022 Procedure Type: Transthoracic Echocardiogram Location: OP Height: 180.34 cm Weight: 113.4 kg BSA: 2.32 m2 Heart Rate: bpm BP: 138 / 84 mmHg Open End Spinning Operator: Referring MD: Donato Davila MD Symptoms: I42.1 - Obstructive hypertrophic cardiomyopathy Study Quality: Good ECG Rhythm: Sinus Conclusions: - The left ventricular systolic function is hyperdynamic. The visually estimated ejection fraction is >70%. - There is severely increased left ventricular wall thickness. - Peak resting LVOT gradient 165mmHg. Valsalva not attempted. - No obvious valvular pathology seen on this study. Findings Left Ventricle Normal left ventricular cavity size. There is severely increased left ventricular wall thickness. The left ventricular systolic function is hyperdynamic. The visually estimated ejection fraction is >70%. There is no evidence of regional wall motion abnormalities. E/E prime ratio is >15, consistent with elevated filling pressures. Evidence suggests grade I (mild) diastolic dysfunction. Peak resting LVOT gradient 165mmHg. Valsalva not attempted. LV peak GLS -14.2%. Right Ventricle Normal right ventricular cavity size and systolic function. Atria The left atrium is mildly dilated. The right atrium is normal in size. Aortic Valve There is a normal trileaflet aortic valve. There is no aortic valve stenosis. There is trace (trivial) aortic valve regurgitation. Increased gradients across the aortic valve due to high stroke volume. Leaflets are opening normally. Mitral Valve The mitral valve appears normal. There is mild mitral valve regurgitation. There is no mitral valve stenosis. Pulmonic Valve The pulmonic valve is likely normal. Tricuspid Valve There is trace tricuspid valve regurgitation. There is no evidence of pulmonary hypertension. Great Vessels The asc aorta is normal in size. Venous The inferior vena cava is normal in size and collapses greater than 50% with inspiration. Pericardium/Pleural There is no evidence of pericardial effusion. Prior Study Comparison Changes noted compared to prior study dated: 07/23/2020. Increase in LVOT gradient. Recommendations, Care & Conclusions No obvious valvular pathology seen on this study. Measurements 2D Linear Measurements IVSd: 2.08 0.6-0.9/0.6-1.0 cm LVIDd: 4.38 3.9-5.3/4.2-5.9 cm LVIDd Index: 1.89 2.4-3.2/2.2-3.1 cm/m2 LVIDs: 2.47 2.0-3.6 cm LVPWd: 1.58 0.7-1.1 cm Ao Root: 3.40 2.1-3.5 cm LA Diam: 4.60 2.7-3.8/3.0-4.0 cm LAIDs Index: 1.98 1.5-2.3 cm/m2 LV Mass: 453.12 67-162/88-224 g LV Mass Index: 195.31 43-95/49-115 g/m2 LVOT Diam: 2.20 3.0+(-)1.3 cm 2D Systolic Function EF 4C: 55.40 >55% EF 2C: 67.70 >55% EF BiP: 61.10 >55% Mitral Valve MV Pk E: 0.85 MV PK A: 1.14 MV Decel Time: 195.00 E/A: 0.70 E'Lateral: 4.03 E'Medial: 4.79 E/E' Med: 17.70 E/E' Lat: 21.00 PHT: 57.00 MVA PHT: 3.86 Decel [place]: 4.36 Aortic Valve AoV Pk [place]: 3.68 AoV Mn [place]: 2.17 AoV VTI: 0.70 AoV Pk Grad: 54.00 Aov Mn Grad: 24.00 PATSY Cont.VTI: 1.34 LVOT LVOT Pk [place]: 1.47 LVOT Mn [place]: 0.88 LVOT VTI: 0.25 LVOT Pk Grad: 9.00 LVOT Mn Grad: 4.00 LVOT Diam: 2.20 LVOT Area: 3.80 Diastolic Function MV Pk E: 0.85 MV Pk A: 1.14 E/A: 0.70 E'Medial: 4.79 E/E' Med: 17.70 E' Laterial: 4.03 E/E' Lat: 21.00 Right Ventricle TAPSE (mm): 25.00 TVS' [place]: 15.00 Tricuspid Valve TR Pk [place]: 2.73 TR Pk Grad: 30.00 RA Press: 3.00 RVSP: 33.00 Great Vessels Aorta Ao Root-2D: 3.40 2.0-3.7 cm Ao Asc: 3.60 2.1-3.4 cm Pulmonary Valve PV Pk [place]: 1.38 Peak PV Grad: 8.00 Updated in Other Vendor System with Status of Final Cali Mueller MD electronically signed on 08/26/2022 9:31:17 AM with status of Final
== END ==
LOC: HO.CARD 15:47
PROVIDERS: PCP Internal Medicine; Visit Provider Internal Medicine Cardiovascular Disease
DX: I42.1 Obstructive hypertrophic cardiomyopathy (principal)
CPT/HCPCS: 93306; 93356

== ENCOUNTER → 2022-08-28 10:58 | Outpatient (REF) | payer OTHER, SELFPAY ==
--- NOTE | 2022-08-28 11:02 | HM_ITS ---
* Total monitoring time 2 days. * Underlying rhythm is sinus. Average ventricular rate 90/Min. Range 55 to 137/Min. * Occasional PVCs. [place] of 1.1%. No runs noted. * Rare PACs. * No significant pauses or AV blocks. * Some strips show nonspecific changes in T-waves of uncertain significance. * No patient markers or events in diary. MTDD
== END ==
LOC: HO.CARD 10:58
PROVIDERS: PCP Internal Medicine; Visit Provider Internal Medicine Cardiovascular Disease
DX: I42.1 Obstructive hypertrophic cardiomyopathy (principal)
CPT/HCPCS: 93225

== ENCOUNTER 2022-09-08 13:00 | Outpatient (RCR) | payer OTHER, SELFPAY ==
--- NOTE | 2022-08-25 17:03 | MHC.PT.EP ---
[facility] [place] Office [place] Office [place] Office [address] Natividad Ward [address] [phone] F: [phone] F: [phone] F: [phone] F: [phone] Physical Therapy Plan of Care Date of Evaluation: Date of Surgery: NA Diagnosis: dorsalgia Assessment: Pt IS 52 YO M REFERRED TO PT FROM [facility] (WITH DR MCKEON) WITH DORSALGIA. BACK PAIN IS CHRONIC IN NATURE. PRESENTS WITH DECREASED TRUNK FLEXIBILITY, DECREASED LE FLEXIBILITY, POOR CORE STRENGTH. SHOULD BENEFIT FROM PT TO ADDRESS THESE ISSUES Frequency and Duration: The patient will be seen 2X/WK X 6 WKS Short Term Goals: 1. INCREASED AWARENESS POSTURE AND BACK CARE 2. IMPROVED SLEEP Skilled Nursing Goals: 1. I HEP WITH DC EX PLAN 2. IMPROVED TRUNK FLEXIBILITY (25% T/O) 3. DECREASED BACK PAIN AT LEAST 50% WITH ADLS 4. HIP FLEXION AT LEAST 90 DEGREES B Treatment Plan: Modalities to reduce pain, spasms and effusion. Manual therapy to restore motion and function. Therapeutic exercise to improve strength and flexibility. Neuromuscular re-education for posture and balance. Therapeutic activities to return to functional activities of daily living. Electronically signed by: CATALINA CHÁVEZ PT Please sign and return to therapist. Thank you for your referral.
--- NOTE | 2022-09-08 16:16 | MHC.PT.DC ---
[facility] [place] Office [place] Office [place] Office [address] Natividad Ward [address] [phone] F: [phone] F: [phone] F: [phone] F: [phone] Physical Therapy Discharge Report Diagnosis: dorsalgia Date of Surgery: NA Date of Evaluation: 08/25/22 Date of Discharge: 09/08/22 Treatments to Date: 4 Cancellations to Date: No Shows to Date: Discharge Status: Improved Function Independent with HEP Discharge Summary: PER ASSESSMENT BY KAYDEN DEAN CREATIVE ARTS THERAPIST :'Pt reports today he has no pain he feels he will be good to go next visit. Able to complete continued program w/o increase in discomfort and demonstrating understanding and compliance with HEP. Pt requesting D/C today.' Electronically signed by: CATALINA CHÁVEZ PT Please sign and return to therapist. Thank you for your referral.
== END 2022-09-08 16:16 | disposition home or self-care (01) ==
LOC: HO.PT 13:00
PROVIDERS: PCP Internal Medicine; Visit Provider Nurse Practitioner Family
DX: M54.9 Dorsalgia, unspecified (principal)
CPT/HCPCS: 97110; 97140; 97161; 97535

== ENCOUNTER → 2022-11-16 13:37 | Outpatient (BNVA) | payer OTHER, SELFPAY | PROVIDERS: PCP Internal Medicine; Referring Provider Internal Medicine; Visit Provider Internal Medicine Cardiovascular Disease | DX: I42.1 Obstructive hypertrophic cardiomyopathy (principal) | CPT/HCPCS: 99212 ==

== ENCOUNTER 2022-12-07 11:03 | Outpatient (REF) | payer OTHER, SELFPAY ==
[2022-12-07 13:28] LABS: Alanine Aminotransferase 103 U/L (0-40); Albumin Level 4.6 g/dL (3.5-5.0); Alkaline Phosphatase 62 U/L (39-117); Anion Gap 14 (12-20); Aspartate Amino Transferase 56 U/L (5-37); Bilirubin Total 0.8 mg/dL (0.0-1.0); Blood Urea Nitrogen 14 mg/dL (9-16); Calcium 9.7 mg/dL (8.4-10.2); Carbon Dioxide 26 mmol/L (22-29); Chloride 101 mmol/L (96-108); Cholesterol 168 mg/dL; Estimated Glomerular Filt Rate > 60; Glucose Fasting 110 mg/dL (60-99); HDL Cholesterol 26 mg/dL; LDL Cholesterol Calculated 102 mg/dl; Potassium 3.9 mmol/L (3.3-5.1); Sodium 137 mmol/L (135-145); Total Protein 7.8 g/dL (6.5-8.0); Triglycerides 202 mg/dL
[2022-12-07 13:53] LABS: ~HepC Num1 0.19 S/CO (0.00-0.79); ~Hepatitis C Antibody Nonreactive (Nonreactive)
[2022-12-07 13:58] LABS: HIV AB/AG Nonreactive (Nonreactive); HIV Num 1 0.05 S/CO (0.00-0.99)
[2022-12-11 15:28] LABS: NT-proBNP 179 pg/mL (<125)
== END 2022-12-07 11:04 | disposition home or self-care (01) ==
LOC: HO.LAB 11:03
PROVIDERS: PCP Internal Medicine; Visit Provider Internal Medicine
DX: Z11.4 Encounter for screening for human immunodeficiency virus [HIV] (principal); I42.1 Obstructive hypertrophic cardiomyopathy; E78.5 Hyperlipidemia, unspecified; F19.91 Other psychoactive substance use, unspecified, in remission
CPT/HCPCS: 36415; 80053; 80061; 83880; 86803; 87389

== ENCOUNTER 2022-12-11 14:05 | Outpatient (AMB) | payer OTHER, SELFPAY ==
--- NOTE | 2022-12-11 12:40 | A.OFFVIS_ITS ---
Intake Intake Visit Reasons: LDCT SD Allergies Contrast Dye Allergy (Intermediate, Verified 10/22/22 15:20) Hives Iodinated Contrast Media [IV CONTRAST] Allergy (Mild, Verified 10/22/22 15:20) HIVES HPI LDCT SD HPI Details Initial visit for this 52yo former smoker with a 60+PYH. Patient started smoking at age 7 for 34 years at 3-4ppd. Quit in 2011. . Denies marijuana use. Denies second hand smoke exposure. Denies exposure to chemicals or substances like asbestos. . Denies known family history of lung cancer. Denies personal history of cancers. . Denies chest CT in last year. He had prior chest CT on 09/15/17 noting peribronchial thickening and lower lobe ground glass opacities . Denies recent travel outside the [place]. Denies recent respiratory illness or recent hospitalization for respiratory issues. Reports testing positive for COVID. x 2. Admits receiving COVID Vaccine - x 3. . Denies fever, chills, new/worsening cough, hemoptysis, hoarseness or dysphagia. Denies significant chest pain, significant dyspnea or unintentional weight loss. Patient Lung Cancer Screening Questionnaire reviewed with patient by provider. . Shared Decision Making Completed. Patient meets criteria. Discussed in detail with patient, the risk vs benefit of LDCT screening. Patient consents to proceed with scan. Discussed smoking cessation. [facility] Medical History (Updated 12/11/22 @ 14:15 by Janet Luke PA-C) Anxiety and depression Diabetes mellitus Hepatic steatosis HOCM (hypertrophic obstructive cardiomyopathy) Hyperlipidemia Hypertension Hypertrophic cardiomyopathy Lumbar degenerative disc disease Personal history of nicotine dependence Surgical History (Updated 12/04/22 @ 15:00 by Janet Luke PA-C) History of cardiac cath History of carpal tunnel surgery History of right inguinal hernia repair Family History Paternal Grandfather Heart disease Skin cancer Maternal Grandmother Skin cancer Maternal Grandfather Prostate cancer Father Prostate cancer Mother Diabetes Skin cancer Social History (Updated 12/11/22 @ 14:16 by Janet Luke PA-C) Housing: Apartment Alcohol intake: never Patient Tobacco Use Status: Former Tobacco user Quit Date: 2011 Tobacco use type: Cigarette Years Smoked: (Former smoker - onset 7yo, 3-4ppd x 3years - 60+PYH - quit 2011) e-Cigarette/Vaping Use: Never Used Second Hand Smoke Exposure: No service: No Current occupational status: employed Cognitive needs: No Hearing needs: No Vision needs: No Assessment & Plan Assessment & Plan (1) Personal history of nicotine dependence: Comment: (Former smoker - onset 7yo, 3-4ppd x 3years - 60+PYH - quit 2011) Code(s): Z87.891 - Personal history of nicotine dependence Plan: - SDM visit completed today in office. - Patient meets criteria for LDCT for lung cancer screening purposes and is asymptomatic. - Smoking cessation counseling offered. Patients can always call [phone]. - Will arrange for a LDCT scan of the chest for screening purposes at [facility]. - Risks, benefits, and alternatives were discussed in detail and the patient agrees to proceed. - Risks discussed include but are not limited to: radiation exposure, anxiety during testing and while awaiting results, false negatives, false positives and possibility of additional intervention such as further imaging or surgical procedures for benign disease. - Benefits are obviously detection of lung cancer at an early stage which can lead to improved outcomes. - Discussed the importance of screening program compliance with adherence to yearly LDCT scan as scheduled - or sooner interval scans for personalized screening regimen. - Discussed follow up plan. Our office will send a letter discussing results and if needed set up phone call and office visit based on CT findings. - Patient educated on results categorization and the management decisions for suspicious findings potentially found on the screening LDCT scan. Any patient with a Lung RADS score of 3 or 4 will be reviewed by a multidisciplinary team at [facility] to form a plan of action in regards to scan findings. - If further work up is warranted for a suspicious lung finding this will be followed by the Lung Cancer Screening program in conjunction with the Thoracic Surgery Department at [facility]. - A copy of the office note and LDCT will be sent to the patient's PCP - as well as documentation on any associated further plans of care. - Incidental findings on LDCT are the PCP's responsibility. These findings are indicated with an S finding on the LDCT Assessment. A note discussing the findings will be sent to the PCP who is then responsible for further management. - All questions answered.? - patient reports snorning and was diagnosed with PAPA in 2012. He does not use cpap - importance of treatment was discuss and patient was encouraged to reinitiate treatment for sleep apnea. Coding Level of Care Code Lung Cancer Screening [id number] Diagnoses Personal history of nicotine dependence Z87.891
== END 2022-12-11 14:29 | disposition home or self-care (01) ==
PROVIDERS: PCP Internal Medicine; Visit Provider Physician Assistant Medical
DX: Z87.891 Personal history of nicotine dependence (principal)
CPT/HCPCS: G0296

== ENCOUNTER 2022-12-11 14:16 | Outpatient (REF) | payer OTHER, SELFPAY ==
--- NOTE | ~2022-12-11 | CT_ITS ---
EXAMINATION: CT CHEST SCREENING CLINICAL INFORMATION: 40 pack year history, quit smoking 12 years ago. COMPARISON: None available. TECHNIQUE: Multidetector volumetric CT imaging of the chest is performed without contrast using low dose technique. Additional 2D coronal and sagittal reformatted images and axial 3D maximum intensity projection (MIP) images are generated on the CT workstation. This CT examination was performed using dose optimization techniques as appropriate, variously including the following: *Automated exposure control *Adjustment of mA and/or kV according to patient size (this includes techniques or standardized protocols for targeted exams where dose is matched to indication/reason for exam; i.e. extremities or head) *Use of iterative reconstruction technique DLP: 66.9 mGy-cm FINDINGS: PLATING FOREMAN: Elevated right hemidiaphragm. LUNGS: Evaluation limited by auditory motion. Scattered atelectasis. Trachea and bronchi are patent. NODULES: RUL: 3 mm, 3:28 NEISHA: 3 mm, 3:15 MEDIASTINUM: Unremarkable thyroid. No pathologic lymphadenopathy. HEART AND GREAT VESSELS: Heart is not enlarged. No pericardial effusion. Nonaneurysmal aorta. Nonenlarged pulmonary arteries. Vertebral CORONARY ARTERY CALCIFICATION: None visualized on this study. PLEURA: There is no pleural effusion. No pleural mass or thickening. AXILLA: No lymphadenopathy. UPPER ABDOMEN: Enlarged fatty liver. Spleen is enlarged measuring 14.3 cm. 3 cm left adrenal nodule measuring 15 Hounsfield units. OSSEOUS STRUCTURES: Unremarkable. CT/CT lung screening IMPRESSION: Bilateral lung nodules, none larger than 3 mm. 3 cm left adrenal nodule. Enlarged fatty liver and splenomegaly. ASSESSMENT: Lung-RADS category 2: Benign RECOMMENDATION: Routine annual low-dose CT screening in 12 months. 3 cm left adrenal nodule, probable adenoma. Adrenal washout CT or chemical shift MRI recommended.
== END 2022-12-11 14:17 | disposition home or self-care (01) ==
LOC: HO.CT 14:16
PROVIDERS: PCP Internal Medicine; Visit Provider Physician Assistant Medical
DX: Z12.2 Encounter for screening for malignant neoplasm of respiratory organs (principal); F17.210 Nicotine dependence, cigarettes, uncomplicated
CPT/HCPCS: 71271; G0296

== ENCOUNTER 2023-01-06 14:45 | Outpatient (AMB) | payer OTHER, SELFPAY ==
--- NOTE | 2023-01-06 14:48 | A.OFFPC_ITS ---
Vital Signs 01/06/23 14:56 Height 5 ft 11 in Weight 252 lb BMI 35.1 BP 142/82 H Blood Pressure Location Lt brachial Position Sitting Pulse 82 Pulse Source Pulse Oximeter Pulse Oximetry (%) 97 Oxygen Delivery Method Room Air Intake Visit Reasons: Lower left abdominal pain Purchasing/Receiving Required: No Accompanied by: Self / Same As Patient Allergies Contrast Dye Allergy (Intermediate, Verified 01/06/23 15:04) Hives Iodinated Contrast Media [IV CONTRAST] Allergy (Mild, Verified 01/06/23 15:04) HIVES Medication List - Last Reconciled 01/06/23 by Maricarmen Medel MD acetaminophen 500 mg PO TID PRN blood sugar diagnostic (FreeStyle Test strips) Use 1 test strip three times a day lancets (FreeStyle Lancets) Use 1 lancet TID lisinopril 10 mg PO DAILY 90 days metformin 1,000 mg PO BID 90 days miscellaneous medical supply 2 ea miscellaneous DAILY 90 days Ventolin HFA 90 mcg/actuation (albuterol sulfate) 2 puffs inhalation Q6H PRN 30 days NS verapamil ER 240 mg PO BID 90 days Tobacco use date assessed: 07/29/22 Dental Screening Dental Screen Date: 01/06/23 Did you have a dental visit in the last 12 months?: Yes Did you have a dental problem in the last 6 months where you did not have access to dental care?: No Was dental information given to patient?: Patient has dentist HPI HPI Comments History of Present Illness Details This is a 52-year-old male with diabetes mellitus type 2, hypertension, cardiomyopathy and transaminitis that complains of epigastric pain that has been bothering him. A1c within goal. Blood pressure stable. Cardiomyopathy is follow by cardiology and has not gain 5 lb in a week. Transaminitis has worsened and as per patient he does not follow with Gastroenterology. Denies any jaundice. He also has epigastric pain and upper gi series will be ordered. [facility] Medical History Anxiety and depression Diabetes mellitus Hepatic steatosis HOCM (hypertrophic obstructive cardiomyopathy) Hyperlipidemia Hypertension Hypertrophic cardiomyopathy Lumbar degenerative disc disease Personal history of nicotine dependence Surgical History History of cardiac cath History of carpal tunnel surgery History of right inguinal hernia repair Family History Paternal Grandfather Heart disease Skin cancer Maternal Grandmother Skin cancer Maternal Grandfather Prostate cancer Father Prostate cancer Mother Diabetes Skin cancer Social History Housing: Apartment Alcohol intake: never Patient Tobacco Use Status: Former Tobacco user Quit Date: 2011 Tobacco use type: Cigarette Years Smoked: (Former smoker - onset 7yo, 3-4ppd x 3years - 60+PYH - quit 2011) e-Cigarette/Vaping Use: Never Used Second Hand Smoke Exposure: No service: No Current occupational status: employed Cognitive needs: No Hearing needs: No Vision needs: No Questionnaire Thrive Questionnaire Date Thrive assessed: 07/29/22 MARYANN-7 AMB Questionnaire MARYANN-7 Date MARYANN - 7 assessed: 07/29/22 Source: Developed by Drs. Lucio Ralph, Joan Villarreal, Mayo Armendariz and colleagues, with an educational kaylee from [employer]. Review of Systems Const All systems reviewed & are unremarkable except as noted in HPI and below Eyes Reports no additional complaints, Denies change in vision and Denies other visu al disturbances Card Denies chest pain at rest, Denies chest pain with activity, Denies edema, Denies irregular heart rhythm, Denies claudication, Denies dyspnea, Denies dyspnea on exertion, Denies orthopnea, Denies paroxysmal nocturnal dyspnea and Denies slow heart rate Resp Denies cough, Denies dyspnea and Denies dyspnea on exertion GI Reports abdominal pain, Denies change in bowel habits, Denies excessive flatus, Reports heartburn, Denies nausea and Denies vomiting Denies urinary hesitancy, Denies urinary incontinence and Denies urinary urgency Musc Denies abnormal gait, Denies atrophy, Denies deformity and Denies limited range of motion Skin/Breast Denies bleeding lesions, Denies changing lesions and Denies rash Neuro Denies abnormal gait and Denies lack of coordination Physical exam (Primary Care) Vital Signs: Last Vital Signs Pulse 82 01/06/23 14:56 BP 142/82 H 01/06/23 14:56 Pulse Ox 97 01/06/23 14:56 Oxygen Delivery Method Room Air 01/06/23 14:56 BMI result Body Mass Index 35.1 Tobacco/Smoking Status: Tobacco use Status Tobacco use date assessed 07/29/22 01/06/23 14:48 Patient Tobacco Use Status Former Tobacco user 01/06/23 14:48 Tobacco use type Cigarette 01/06/23 14:48 e-Cigarette/Vaping Use Never Used 01/06/23 14:48 Thrive Assessment: Date of Thrive Assessment Date Thrive assessed 07/29/22 01/06/23 14:48 Eyes General: appearance normal, both eyes and all related structures Eyelids: Yes eyelids normal Conjunctivae: conjunctivae normal Neck Neck: Yes normal visual inspection and Yes supple Resp Effort & Inspection: normal respiratory effort Auscultation: clear to auscultation bilaterally Cardio Jugular venous distension: no JVD Rate: regular rate Rhythm: regular rhythm Heart sounds: S1 normal heart sound present and S2 normal heart sound present Extrem General: Yes full ROM Results AMB Hemoglobin A1c AMB Hemoglobin A1c 6.9 % Last Edit by SHER Fleming on 01/06/23 15:12 Results Reviewed Results Reviewed: Laboratory Last Values Hgb A1c (Clinic) 6.9 % (4.0-6.0) H 01/06/23 14:56 Assessment and Plan Assessment & Plan (1) Diabetes mellitus: Code(s): E11.9 - Type 2 diabetes mellitus without complications Qualifiers: Diabetes mellitus type: type 2 Diabetes mellitus 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 A1c goal is equal or less than 7%. (2) HOCM (hypertrophic obstructive cardiomyopathy): Code(s): I42.1 - Obstructive hypertrophic cardiomyopathy Plan: Continue lisinopril. The goal is to not gain 5 lb in a week. Follow-up with Cardiology. (3) Hypertension: Code(s): I10 - Essential (primary) hypertension Qualifiers: Hypertension type: unspecified Qualified Code(s): I10 - Essential (primary) hypertension Plan: Continue lisinopril and verapamil. Blood pressure goal is equal or less than 130/80. (4) Transaminitis: Code(s): R74.01 - Elevation of levels of liver transaminase levels Plan: Ultrasound of the abdomen ordered. Referred to Gastroenterology. (5) Epigastric pain: Code(s): R10.13 - Epigastric pain Plan: Upper GI series ordered. Orders: Orders US abdomen comp w elastography Today R74.01 - Elevation of levels of liver transaminase levels PSA,Total (Free>4and<10) Today Z12.5 - Encounter for screening for malignant neoplasm of prostate [place] upper GI series Today R10.13 - Epigastric pain AMB Hemoglobin A1c Today E11.9 - Type 2 diabetes mellitus without complications Referrals Gastroenterology Referral R74.01 - Elevation of levels of liver transaminase levels Coding Level of Care Code Est Pt Level 4 (33696) Diagnoses Diabetes mellitus E11.9 Diabetes mellitus type: type 2 Diabetes mellitus alf insulin use: without intermediate school teacher use Diabetes mellitus complication status: without complication HOCM (hypertrophic obstructive cardiomyopathy) I42.1 Hypertension I10 Hypertension type: unspecified Transaminitis R74.01 Epigastric pain R10.13 Time Spent (min) 24
[2023-01-06 14:56] VITALS: BP 142/82; PULSE 82; O2SAT 97; BMI 35.1
== END 2023-01-06 15:36 | disposition home or self-care (01) ==
PROVIDERS: PCP Internal Medicine; Visit Provider Internal Medicine
DX: E11.9 Type 2 diabetes mellitus without complications (principal); I42.1 Obstructive hypertrophic cardiomyopathy; I10 Essential (primary) hypertension; R74.01 Elevation of levels of liver transaminase levels; R10.13 Epigastric pain
CPT/HCPCS: 83036; 99214

== ENCOUNTER 2023-01-06 15:35 | Outpatient (REF) | payer OTHER, SELFPAY ==
[2023-01-06 16:17] LABS: Estimated Average Glucose 151 mg/dL; Hemoglobin A1c % 6.9 %
[2023-01-06 17:00] LABS: PSA,Total (Free>4and<10) 0.77 ng/mL (0.00-4.00)
== END 2023-01-06 15:36 | disposition home or self-care (01) ==
LOC: HO.LAB 15:35
PROVIDERS: Nurse Practitioner Family; PCP Internal Medicine; Visit Provider Internal Medicine
DX: Z12.5 Encounter for screening for malignant neoplasm of prostate (principal); E11.9 Type 2 diabetes mellitus without complications
CPT/HCPCS: 36415; 83036; 84153

== ENCOUNTER 2023-01-27 14:34 | Emergency (ER) | payer OTHER, SELFPAY ==
--- NOTE | ~2023-01-27 | XR_ITS ---
EXAMINATION: XR CHEST CLINICAL INFORMATION: Chest pain COMPARISON: Previous chest x-ray August 2020 TECHNIQUE: 2 views of the chest were obtained. FINDINGS: The cardiac and mediastinal contours are stable. The lungs are clear. No pleural effusion or pneumothorax. Bony structures are unremarkable. XR/XR chest 2V IMPRESSION: Unremarkable examination.
--- NOTE | 2023-01-27 14:37 | ECG_ITS ---
Test Reason : chest pian Blood Pressure : / mmHG Vent. Rate : 095 BPM Atrial Rate : 095 BPM P-R Int : 152 ms QRS Dur : 102 ms QT Int : 372 ms P-R-T Axes : 040 -13 134 degrees QTc Int : 467 ms Sinus rhythm with occasional Premature ventricular complexes Possible Left atrial enlargement Left ventricular hypertrophy with repolarization abnormality ( R in aVL , [place] product ) Abnormal ECG When compared with ECG of 31-AUG-2020 03:08, Premature ventricular complexes are now Present T wave inversion more evident in Lateral leads Referred By: Radha Alcantar Electronically Signed By:ANETA SIMMS
--- NOTE | 2023-01-27 15:20 | ED.CHESTPAIN ---
HPI - Chest Pain General Chief Complaint: Chest Pain Stated Complaint: chest pain / sob Related Data Previous Rx's Medication Instructions Recorded miscellaneous medical supply 2 ea miscellaneous DAILY DX: E11.9 06/01/21 90 days #2 ea acetaminophen 500 mg capsule 500 mg PO TID PRN pain #30 caps 07/11/22 Ventolin HFA 90 mcg/actuation 2 puff inhalation Q6H PRN 07/21/22 aerosol inhaler (albuterol sulfate) shortness of breath or wheezing 30 days #8 grams blood sugar diagnostic (FreeStyle #100 ea 09/12/22 Test strips) lisinopril 10 mg tablet 10 mg PO DAILY 90 days #90 tabs 10/22/22 metformin 1,000 mg tablet 1,000 mg PO BID 90 days #180 tabs 10/24/22 verapamil 240 mg 24 hr 240 mg PO BID 90 days #180 caps 11/06/22 capsule,extended release lancets 28 gauge (FreeStyle #100 ea 11/09/22 Lancets) Allergies Allergy/AdvReac Type Severity Reaction Status Date / Time Contrast Dye Allergy Intermediate Hives Verified 01/27/23 15:21 Iodinated Contrast Media Allergy Mild HIVES Verified 01/27/23 15:21 [IV CONTRAST] [facility] Past Medical History Medical History Anxiety and depression Diabetes mellitus Hepatic steatosis HOCM (hypertrophic obstructive cardiomyopathy) Hyperlipidemia Hypertension Hypertrophic cardiomyopathy Lumbar degenerative disc disease Personal history of nicotine dependence Surgical History History of cardiac cath History of carpal tunnel surgery History of right inguinal hernia repair Family History Family History Paternal Grandfather Heart disease Skin cancer Maternal Grandmother Skin cancer Maternal Grandfather Prostate cancer Father Prostate cancer Mother Diabetes Skin cancer Social History Social History Housing: Apartment Alcohol intake: never Patient Tobacco Use Status: Former Tobacco user Quit Date: 2011 Tobacco use type: Cigarette Years Smoked: (Former smoker - onset 7yo, 3-4ppd x 3years - 60+PYH - quit 2011) e-Cigarette/Vaping Use: Never Used Second Hand Smoke Exposure: No Advance Directives: No Advance Directives Information Provided: Yes service: No Current occupational status: employed Cognitive needs: No Hearing needs: No Vision needs: No Physical Exam Vital Signs: Vital Signs: Last Vital Signs Temp 99.1 F 01/27/23 15:21 Pulse 95 01/27/23 15:21 Resp 18 01/27/23 15:21 BP 117/84 01/27/23 15:21 Pulse Ox 95 01/27/23 15:21 O2 Del Method Room Air 01/27/23 15:21 BMI result Body Mass Index 35.3 Course Course Course Narrative: This is a rapid medical exam. Deferred additional HPI, ROS, PE to primary provider. 50-year-old male with history of asthma, HOCM, DM, HTN here with complaints of chest pain x several hours which is at rest, not worsened with exertion, headache, shortness of breath. cough. Will obtain labs,, EKG, CXR, covid screen VSS Reevaluation(s) Reevaluation #1: Patient decided to elope from the emergency room. Nursing did inform him of his COVID screen which was positive. Medical Decision Making Lab Data 01/27/23 16:24 01/27/23 16:25 Labs: Lab Results 01/27/23 01/27/23 01/27/23 Range/Units 16:24 16:24 16:25 WBC 6.7 (4.8-10.8) X10*3/uL RBC 5.37 (4.60-5.80) X10*6/uL Hgb 15.4 (14.0-18.0) g/dl Hct 43.9 (42.0-52.0) % MCV 81.8 (80.0-98.0) fL MCH 28.7 (27.0-33.0) pg MCHC 35.1 (31.0-36.0) g/dl RDW 12.9 (11.0-16.0) % Plt Count 134 L (160-400) X10*3/uL MPV 9.7 (9.4-12.4) fL Immature Gran % (Auto) 0.3 (0.0-0.4) % Neut % (Auto) 75.8 H (45-73) % Lymph % (Auto) 12.2 L (20-40) % Kings % (Auto) 9.7 (2-11) % Eos % (Auto) 1.3 (0-4) % Baso % (Auto) 0.7 (0-2) % Lymph # (Auto) 0.8 L (1.2-4.9) X10*3/uL Kings # (Auto) 0.7 (0.1-1.2) X10*3/uL Eos # (Auto) 0.1 (0.0-0.4) X10*3/uL Baso # (Auto) 0.1 (0.0-0.2) X10*3/uL Abs Immat Gran (auto) 0.02 (0.00-0.03) X10*3/uL Absolute Neuts (auto) 5.1 (2.0-8.3) x10*3/uL Absolute Nucleated RBC 0.000 (0.0-0.012) X10*3/uL Nucleated RBC % (auto) 0.0 (0.0-0.2) /100WBC Sodium 140 (135-145) mmol/L Potassium 3.9 (3.3-5.1) mmol/L Chloride 102 (96-108) mmol/L Carbon Dioxide 27 (22-29) mmol/L Anion Gap 15 (12-20) BUN 10 (9-16) mg/dL Creatinine 1.11 (0.5-1.4) mg/dL Estim Creat Clear Calc 101.4 Estimated GFR > 60 Random Glucose 151 H (60-115) mg/dL Calcium 10.0 (8.4-10.2) mg/dL Total Bilirubin 0.6 (0.0-1.0) mg/dL Direct Bilirubin 0.2 (0.0-0.5) mg/dL AST 79 H (5-37) U/L ALT 124 H (0-40) U/L Alkaline Phosphatase 71 (39-117) U/L Troponin I High Sens (<3.5-35.0) ng/L Total Protein 8.1 H (6.5-8.0) g/dL Albumin 4.6 (3.5-5.0) g/dL COVID-19 (VIELKA) Positive A (Negative) COVID-19 Clin Com See Note 01/27/23 Range/Units 16:25 WBC (4.8-10.8) X10*3/uL RBC (4.60-5.80) X10*6/uL Hgb (14.0-18.0) g/dl Hct (42.0-52.0) % MCV (80.0-98.0) fL MCH (27.0-33.0) pg MCHC (31.0-36.0) g/dl RDW (11.0-16.0) % Plt Count (160-400) X10*3/uL MPV (9.4-12.4) fL Immature Gran % (Auto) (0.0-0.4) % Neut % (Auto) (45-73) % Lymph % (Auto) (20-40) % Kings % (Auto) (2-11) % Eos % (Auto) (0-4) % Baso % (Auto) (0-2) % Lymph # (Auto) (1.2-4.9) X10*3/uL Kings # (Auto) (0.1-1.2) X10*3/uL Eos # (Auto) (0.0-0.4) X10*3/uL Baso # (Auto) (0.0-0.2) X10*3/uL Abs Immat Gran (auto) (0.00-0.03) X10*3/uL Absolute Neuts (auto) (2.0-8.3) x10*3/uL Absolute Nucleated RBC (0.0-0.012) X10*3/uL Nucleated RBC % (auto) (0.0-0.2) /100WBC Sodium (135-145) mmol/L Potassium (3.3-5.1) mmol/L Chloride (96-108) mmol/L Carbon Dioxide (22-29) mmol/L Anion Gap (12-20) BUN (9-16) mg/dL Creatinine (0.5-1.4) mg/dL Estim Creat Clear Calc Estimated GFR Random Glucose (60-115) mg/dL Calcium (8.4-10.2) mg/dL Total Bilirubin (0.0-1.0) mg/dL Direct Bilirubin (0.0-0.5) mg/dL AST (5-37) U/L ALT (0-40) U/L Alkaline Phosphatase (39-117) U/L Troponin I High Sens 27.9 (<3.5-35.0) ng/L Total Protein (6.5-8.0) g/dL Albumin (3.5-5.0) g/dL COVID-19 ([facility]ELKA) (Negative) COVID-19 Clin Com Discharge Plan Discharge Clinical Impression: COVID Patient Disposition: Elopement Prescriptions: No Action miscellaneous medical supply Kit 2 ea miscellaneous DAILY 90 Days Qty: 2 1RF Rx Instructions: DIABETIC SHOES size 11 albuterol sulfate [Ventolin HFA] 90 mcg/actuation HFA aerosol inhaler 2 puff inhalation Q6H PRN (Reason: shortness of breath or wheezing) 30 Days Qty: 8 1RF (DME) FreeStyle Test Strip See Rx Instructions .ROUTE .MEDSUPPLY Qty: 100 11RF Rx Instructions: Use 1 test strip three times a day metformin 1,000 mg tablet 1,000 mg PO BID 90 Days Qty: 180 1RF verapamil 240 mg capsule,ext rel. pellets 24 hr 240 mg PO BID 90 Days Qty: 180 1RF (DME) lancets [FreeStyle Lancets] 28 gauge misc See Rx Instructions .Route Qty: 100 6RF Rx Instructions: Use 1 lancet TID acetaminophen 500 mg capsule 500 mg PO TID PRN (Reason: pain) Qty: 30 0RF lisinopril 10 mg tablet 10 mg PO DAILY 90 Days Qty: 90 1RF
[2023-01-27 15:21] VITALS: BP 117/84; PULSE 95; RESP 18; TEMP 37.3; O2SAT 95; BMI 35.3
[2023-01-27 16:29] LABS: MANUAL DIFF FLAG NO
[2023-01-27 16:30] LABS: Eosinophils Absolute Auto 0.1 X10*3/uL (0.0-0.4); Imm Gran Abs Auto 0.02 X10*3/uL (0.00-0.03); Imm Gran Pct Auto 0.3 % (0.0-0.4); Mean Corpuscular HGB Conc 35.1 g/dl (31.0-36.0); Mean Corpuscular Hemoglobin 28.7 pg (27.0-33.0); Mean Platelet Volume 9.7 fL (9.4-12.4); Monocytes Absolute Auto 0.7 X10*3/uL (0.1-1.2); PLT CLUMP 1; Red Cell Distribution Width 12.9 % (11.0-16.0); SCAN SMEAR FLAG 1
[2023-01-27 16:32] LABS: Basophils Absolute Auto 0.1 X10*3/uL (0.0-0.2); Basophils Percent Auto 0.7 % (0-2); Eosinophils Percent Auto 1.3 % (0-4); Hematocrit 43.9 % (42.0-52.0); Hemoglobin 15.4 g/dl (14.0-18.0); Lymphocytes Absolute Auto 0.8 X10*3/uL (1.2-4.9); Lymphocytes Percent Auto 12.2 % (20-40); Mean Corpuscular Volume 81.8 fL (80.0-98.0); Monocytes Percent Auto 9.7 % (2-11); Neutrophils Absolute Auto 5.1 x10*3/uL (2.0-8.3); Neutrophils Percent Auto 75.8 % (45-73); Red Blood Count 5.37 X10*6/uL (4.60-5.80)
[2023-01-27 16:34] LABS: Platelet Count 134 X10*3/uL (160-400); White Blood Count 6.7 X10*3/uL (4.8-10.8)
[2023-01-27 16:46] LABS: COVID-19 Test Positive (Negative); IDNOW Serial# BCCEAD1C
[2023-01-27 16:46] LABS: Alanine Aminotransferase 124 U/L (0-40); Albumin Level 4.6 g/dL (3.5-5.0); Alkaline Phosphatase 71 U/L (39-117); Anion Gap 15 (12-20); Aspartate Amino Transferase 79 U/L (5-37); Bilirubin Direct 0.2 mg/dL (0.0-0.5); Bilirubin Total 0.6 mg/dL (0.0-1.0); Blood Urea Nitrogen 10 mg/dL (9-16); Carbon Dioxide 27 mmol/L (22-29); Chloride 102 mmol/L (96-108); Creatinine Clr Calc Pharmacy 101.4; Estimated Glomerular Filt Rate > 60; Glucose Random 151 mg/dL (60-115); Potassium 3.9 mmol/L (3.3-5.1); Sodium 140 mmol/L (135-145); Total Protein 8.1 g/dL (6.5-8.0)
[2023-01-27 16:55] LABS: Troponin-I High Sensitivity 27.9 ng/L (<3.5-35.0)
== END 2023-01-27 20:57 | disposition left against medical advice (07) ==
PROVIDERS: Nurse Practitioner Family; Emergency Provider Emergency Medicine; PCP Internal Medicine
DX: U07.1 COVID-19 (principal); R07.9 Chest pain, unspecified; R06.02 Shortness of breath; E11.9 Type 2 diabetes mellitus without complications; I10 Essential (primary) hypertension; E78.5 Hyperlipidemia, unspecified; Z79.84 Long term (current) use of oral hypoglycemic drugs; Z79.899 Other long term (current) drug therapy
CPT/HCPCS: 71046; 80048; 80076; 84484; 85025; 87635; 93005; 99283

== ENCOUNTER 2023-02-22 12:21 | Outpatient (AMB) | payer OTHER, SELFPAY ==
--- NOTE | 2023-02-22 12:33 | A.OFFVIS_ITS ---
Intake Vital Signs 02/22/23 12:34 Height 5 ft 11 in Weight 251 lb 5.231 oz BMI 35.0 BP 120/72 Blood Pressure Location Lt brachial Position Sitting Pulse 92 Intake Visit Reasons: 3 MON FUP Intake Note: 3 month follow-up feeling good Photocomposing Machine Operator Required: Yes Photocomposing Machine Operator Name: Jermaine edwards Allergies Contrast Dye Allergy (Intermediate, Verified 01/27/23 15:21) Hives Iodinated Contrast Media [IV CONTRAST] Allergy (Mild, Verified 01/27/23 15:21) HIVES Medication List - Last Reconciled 02/22/23 by Donato Davila MD acetaminophen 500 mg PO TID PRN blood sugar diagnostic (FreeStyle Test strips) Use 1 test strip three times a day lancets (FreeStyle Lancets) Use 1 lancet TID lisinopril 10 mg PO DAILY 90 days metformin 1,000 mg PO BID 90 days miscellaneous medical supply 2 ea miscellaneous DAILY 90 days Ventolin HFA 90 mcg/actuation (albuterol sulfate) 2 puffs inhalation Q6H PRN 30 days NS verapamil ER 240 mg PO BID 90 days HPI HPI Comments History of Present Illness Details Jefe comes for follow-up. History was obtained with help of a certified buffing wheel presser. Despite a certified buffing wheel presser is not a very good historian. He told to the [place] that he was feeling very well. However when I asked him further he said he does get fatigued/shortness of breath when he climbs 2 flights of stairs. Although he says symptoms are better. He has seen the hypertrophic clinic in [place]. Do not have a copy of the office note but was told to undergo surgery. However subsequently he developed COVID and was not able to see them. He does not know when the next appointment is. He denies any orthopnea, PND, lightheadedness, syncope. Occasionally has rapid heart rate which last for few seconds. No prolonged palpitations. No exertional chest pain at current time. [facility] Medical History Hepatic steatosis Personal history of nicotine dependence Lumbar degenerative disc disease HOCM (hypertrophic obstructive cardiomyopathy) Anxiety and depression Diabetes mellitus Hypertrophic cardiomyopathy Hyperlipidemia Hypertension Surgical History History of carpal tunnel surgery History of right inguinal hernia repair History of cardiac cath Family History Paternal Grandfather Heart disease Skin cancer Maternal Grandmother Skin cancer Maternal Grandfather Prostate cancer Father Prostate cancer Mother Diabetes Skin cancer Social History Housing: Apartment Alcohol intake: never Patient Tobacco Use Status: Former Tobacco user Quit Date: 2011 Tobacco use type: Cigarette Years Smoked: (Former smoker - onset 7yo, 3-4ppd x 3years - 60+PYH - quit 2011) e-Cigarette/Vaping Use: Never Used Second Hand Smoke Exposure: No service: No Current occupational status: employed Cognitive needs: No Hearing needs: No Vision needs: No Review of Systems Const Denies chills, Denies fatigue, Denies fever(s), Denies frequent falls, Denies weakness, Denies weight gain and Denies weight loss ENT Denies dizziness Card Denies chest pain, Denies leg edema, Denies lightheadedness, Denies palpitations, Denies dyspnea, Denies dyspnea on exertion, Denies orthopnea and Denies other (loss of consciousness) Resp Denies cough, Denies dyspnea and Denies dyspnea on exertion GI Denies hematochezia and Denies change in stool character Musc Denies abnormal gait, Denies muscle weakness, Denies numbness, Denies radiating pain into limb and Denies tingling Neuro Denies abnormal gait, Denies dizziness, Denies frequent falls, Denies numbness, Denies tingling and Denies weakness Endo Denies fatigue and Denies palpitations Physical Exam Vital Signs: Last Vital Signs Pulse 92 02/22/23 12:34 BP 120/72 02/22/23 12:34 BMI result Body Mass Index 35.0 Const General: cooperative, healthy appearing, comfortable, no acute distress, alert and awake Nutritional Appearance: obese Orientation/consciousness: patient oriented x3 Limitations: no limitations Neck Neck: Yes trachea midline, Yes supple and Yes no JVD Resp Effort & Inspection: normal respiratory effort Auscultation: clear to auscultation bilaterally Cardio Jugular venous distension: no JVD Palpation: normal PMI and heave Rate: regular rate Rhythm: regular rhythm Heart sounds: S1 normal heart sound present, S2 normal heart sound present and Murmur heart sound present (Dynamic systolic murmur at the 3rd left intercostal space) systolic mid, harsh, at the left sternal border and other (Dynamic, increases on standing up) GI Auscultation: normal bowel sounds Skin General skin exam: no rashes or lesions noted Neuro General: patient oriented x3 and no focal motor deficits Extrem General: Yes no clubbing, cyanosis or edema Psych Appearance: grossly normal Assessment & Plan Assessment & Plan (1) HOCM (hypertrophic obstructive cardiomyopathy): Code(s): I42.1 - Obstructive hypertrophic cardiomyopathy Plan: Symptomatic hypertrophic obstructive cardiomyopathy has been seen by hypertrophic clinic in [place]. They have advised surgical correction. Advised to follow through with them now that his COVID has recovered. Importance of this was discussed to prevent further remodeling of his heart in development of heart failure syndrome eventually. Continue current verapamil therapy. Continue aggressive blood pressure control. Advised to maintain activity level as tolerated. Advised to call me with any worsening symptoms. If his symptoms of palpitation worsen is advised to call my office as this may represent atrial fibrillation which he is at risk for. Prior history of mitral valve endocarditis related drug use. Currently does not use drugs. However advised to use SBE prophylaxis as per ACC/[place] guidelines. Follow up in the clinic in 4 weeks time, sooner p.r.n.. Thank you for allowing me to partake in his care Coding Level of Care Code Est Pt Level 4 (90855) Diagnoses HOCM (hypertrophic obstructive cardiomyopathy) I42.1
[2023-02-22 12:34] VITALS: BP 120/72; PULSE 92; BMI 35.0
== END 2023-02-22 12:52 | disposition home or self-care (01) ==
PROVIDERS: PCP Internal Medicine; Visit Provider Internal Medicine Cardiovascular Disease
DX: I42.1 Obstructive hypertrophic cardiomyopathy (principal)
CPT/HCPCS: 99214

== ENCOUNTER → 2023-02-22 12:21 | Outpatient (BNVA) | payer OTHER, SELFPAY | PROVIDERS: PCP Internal Medicine; Visit Provider Internal Medicine Cardiovascular Disease | DX: I42.1 Obstructive hypertrophic cardiomyopathy (principal); Z98.890 Other specified postprocedural states | CPT/HCPCS: 99212 ==

== ENCOUNTER 2023-02-22 14:43 | Outpatient (AMB) | payer OTHER, SELFPAY ==
--- NOTE | 2023-02-22 14:49 | A.OFFPC_ITS ---
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 Required: No Accompanied by: Self / Same As Patient Allergies Contrast Dye Allergy (Intermediate, Verified 02/22/23 15:08) Hives Iodinated Contrast Media [IV CONTRAST] Allergy (Mild, Verified 02/22/23 15:08) HIVES Medication List - Last Reconciled 02/22/23 by Maricarmen Medel MD acetaminophen 500 mg PO TID PRN blood sugar diagnostic (FreeStyle Test strips) Use 1 test strip three times a day lancets (FreeStyle Lancets) Use 1 lancet TID lisinopril 10 mg PO DAILY 90 days metformin 1,000 mg PO BID 90 days miscellaneous medical supply 2 ea miscellaneous DAILY 90 days Ventolin HFA 90 mcg/actuation (albuterol sulfate) 2 puffs inhalation Q6H PRN 30 days NS verapamil ER 240 mg PO BID 90 days Tobacco use date assessed: 07/29/22 Dental Screening Dental Screen Date: 02/22/23 Did you have a dental visit in the last 12 months?: Yes Did you have a dental problem in the last 6 months where you did not have access to dental care?: No Was dental information given to patient?: Patient has dentist HPI HPI Comments History of Present Illness Details This is a 52-year-old male with hypertension, diabetes mellitus type 2, hypertrophic cardiomyopathy and transaminitis comes today for follow-up on his conditions. Blood pressure elevated but he admits not taking blood pressure medication today. Last A1c was within goal. Hypertrophic cardiomyopathy is follow by cardiology and hypertrophic clinic in [place]. Last echocardiogram done August 2022 showing ejection fraction over 70%. He also has transaminitis follow by Gastroenterology and will have ultrasound of abdomen this week. [facility] Medical History Hepatic steatosis Personal history of nicotine dependence Lumbar degenerative disc disease HOCM (hypertrophic obstructive cardiomyopathy) Anxiety and depression Diabetes mellitus Hypertrophic cardiomyopathy Hyperlipidemia Hypertension Surgical History History of carpal tunnel surgery History of right inguinal hernia repair History of cardiac cath Family History Paternal Grandfather Heart disease Skin cancer Maternal Grandmother Skin cancer Maternal Grandfather Prostate cancer Father Prostate cancer Mother Diabetes Skin cancer Social History Housing: Apartment Alcohol intake: never Patient Tobacco Use Status: Former Tobacco user Quit Date: 2011 Tobacco use type: Cigarette Years Smoked: (Former smoker - onset 7yo, 3-4ppd x 3years - 60+PYH - quit 2011) e-Cigarette/Vaping Use: Never Used Second Hand Smoke Exposure: No service: No Current occupational status: employed Current occupational exposures/hazards: No Cognitive needs: No Hearing needs: No Vision needs: No Questionnaire Thrive Questionnaire Date Thrive assessed: 07/29/22 MARYANN-7 AMB Questionnaire MARYANN-7 Date MARYANN - 7 assessed: 07/29/22 Source: Developed by Drs. Lucio Ralph, Joan Villarreal, Mayo Armendariz and colleagues, with an educational kaylee from [employer]. Review of Systems Const All systems reviewed & are unremarkable except as noted in HPI and below Eyes Reports no additional complaints, Denies change in vision and Denies other visual disturbances Card Denies chest pain at rest, Denies chest pain with activity, Denies edema, Denies irregular heart rhythm, Denies claudication, Denies dyspnea, Denies dyspnea on exertion, Denies orthopnea, Denies paroxysmal nocturnal dyspnea and Denies slow heart rate Resp Denies cough, Denies dyspnea and Denies dyspnea on exertion GI Denies abdominal pain, Denies change in bowel habits, Denies excessive flatus, Denies nausea and Denies vomiting Denies urinary hesitancy, Denies urinary incontinence and Denies urinary urgency Musc Denies abnormal gait, Denies atrophy, Denies deformity and Denies limited range of motion Skin/Breast Denies bleeding lesions, Denies changing lesions and Denies rash Neuro Denies abnormal gait and Denies lack of coordination Physical exam (Primary Care) Vital Signs: Last Vital Signs BP 160/90 H 02/22/23 15:57 BMI result Body Mass Index 34.9 Tobacco/Smoking Status: Tobacco use Status Tobacco use date assessed 07/29/22 02/22/23 14:51 Patient Tobacco Use Status Former Tobacco user 02/22/23 14:51 Tobacco use type Cigarette 02/22/23 14:51 e-Cigarette/Vaping Use Never Used 02/22/23 14:51 Thrive Assessment: Date of Thrive Assessment Date Thrive assessed 07/29/22 02/22/23 14:51 Const Orientation/consciousness: patient oriented x3 Eyes General: appearance normal, both eyes and all related structures Eyelids: Yes eyelids normal Conjunctivae: conjunctivae normal Neck Neck: Yes normal visual inspection and Yes supple Resp Effort & Inspection: normal respiratory effort Auscultation: clear to auscultation bilaterally Cardio Jugular venous distension: no JVD Rate: regular rate Rhythm: regular rhythm Heart sounds: Murmur heart sound present systolic Skin General skin exam: no rashes or lesions noted Neuro General: patient oriented x3 and no focal motor deficits Extrem General: Yes full ROM Psych Appearance: grossly normal Office Procedures Flu Questionnaire Does the patient have a severe egg allergy?: No Immunizations flu vacc [id number] 6mos up(PF) 60 mcg(15 mcgx4)/0.5 mL IM syringe Performing Provider: Maricarmen Medel MD [facility] Documented (not given) by: JENA Lopez on 02/22/23 14:55 Reason Not Given: Patient Refused Assessment and Plan Assessment & Plan (1) Diabetes mellitus: Code(s): E11.9 - Type 2 diabetes mellitus without complications Qualifiers: Diabetes mellitus complication status: without complication Diabetes mellitus mcfp insulin use: without mcfp use Diabetes mellitus type: type 2 Qualified Code(s): E11.9 - Type 2 diabetes mellitus without complications Plan: Continue metformin. A1c goal is equal or less than 7%. (2) HOCM (hypertrophic obstructive cardiomyopathy): Code(s): I42.1 - Obstructive hypertrophic cardiomyopathy Plan: Continue follow-up in hypertrophic clinic in [place]. 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 He does not use any drugs anymore. Hypertrophic clinic advised him for surgery. He needs SBE prophylaxis. Has not gain 5 lb in a week. (3) Hypertension: Code(s): I10 - Essential (primary) hypertension Qualifiers: Hypertension type: unspecified Qualified Code(s): I10 - Essential (primary) hypertension Plan: Blood pressure elevated due to not been compliant with medications. Was told to be compliant. Blood pressure goal is equal or less than 130/80 (4) Transaminitis: Code(s): R74.01 - Elevation of levels of liver transaminase levels Plan: Ultrasound of the abdomen will be done this week. Follow up with Gastroenterology. Orders: Orders Influenza [id number] Immunization Today Z23 - Encounter for immunization Coding Level of Care Code Est Pt Level 4 (05277) Diagnoses Type 2 diabetes mellitus without complication, without long-term current use of insulin E11.9 Diabetes mellitus complication status: without complication Diabetes mellitus ferry terminal agent insulin use: without ferry terminal agent use Diabetes mellitus type: type 2 HOCM (hypertrophic obstructive cardiomyopathy) I42.1 Hypertension, unspecified type I10 Hypertension type: unspecified Transaminitis R74.01 Time Spent (min) 20
[2023-02-22 14:52] VITALS: BP 160/90; BMI 34.9
[2023-02-22 15:57] VITALS: BP 160/90
== END 2023-02-22 15:17 | disposition home or self-care (01) ==
PROVIDERS: PCP Internal Medicine; Visit Provider Internal Medicine
DX: E11.9 Type 2 diabetes mellitus without complications (principal); I42.1 Obstructive hypertrophic cardiomyopathy; I10 Essential (primary) hypertension; R74.01 Elevation of levels of liver transaminase levels
CPT/HCPCS: 99214

== ENCOUNTER 2023-02-26 08:48 | Outpatient (REF) | payer OTHER, SELFPAY ==
--- NOTE | ~2023-02-26 | US_ITS ---
EXAMINATION: US COMPLETE ABDOMEN WITH LIVER ELASTOGRAPHY CLINICAL INFORMATION: Elevated liver transaminase levels. COMPARISON: MRI abdomen dated 05/09/2018; CT abdomen dated 10/28/2016 and abdominal ultrasound dated 03/31/2016. TECHNIQUE: Real-time imaging of the abdominal viscera. Noninvasive ultrasound liver fibrosis assessment is performed using Edvin ElastPQ point quantification shear wave elastography (2D-SWE) with a C5-2 MHz transducer. Multiple elastography samples are obtained. FINDINGS: PANCREAS: Limited. The visualized pancreatic head and body are normal in appearance. The remainder of the pancreas is obscured from visualization by the overlying bowel gas. ABDOMINAL AORTA: The proximal, middle, and distal aortic segments are normal in caliber. INFERIOR VENA CAVA: Visualized portions are normal. LIVER: The liver demonstrates normal size, contour and generally increased echogenicity. No focal lesion or intrahepatic biliary duct dilatation. The right lobe measures 19.0 cm in length. The left lobe measures 15.2 cm in length. Portal flow is towards the liver (hepatopetal). Shear wave liver elastography median stiffness is 2.05 m/s (reference: normal median stiffness is 1.3 m/s or less). IQR/median stiffness to assess sampling precision is 0.18 (reference: good quality data set is IQR/median stiffness of 0.15 or less). GALLBLADDER: Normal. The gallbladder is physiologically distended without evidence of stones, sludge, polyps, wall thickening or pericholecystic fluid. COMMON BILE DUCT: Normal in caliber measuring 0.4 cm in diameter. RIGHT KIDNEY: Normal. No hydronephrosis. No renal calculi or focal parenchymal lesions. The kidney measures 12.0 cm in maximum dimension. LEFT KIDNEY: Normal. No hydronephrosis. No renal calculi or focal parenchymal lesions. The kidney measures 11.4 cm in maximum dimension. At the upper pole, a 3.0 cm benign, simple cyst is seen. This requires no imaging follow-up. SPLEEN: No focal finding. The spleen measures 14.8 cm in maximum dimension. FREE FLUID: None. US/US abdomen comp w elastography IMPRESSION: 1. There is generalized increase in hepatic echotexture, consistent with fatty infiltration or hepatocellular disease. Please correlate clinically. No focal hepatic mass or intrahepatic biliary dilatation is seen. 2. There is hepatosplenomegaly. 3. Liver elastography: Although measurements are suggestive of compensated advanced chronic liver disease, there is statistical variability of the sampling which decreases accuracy. 4. Technically limited ultrasound evaluation of the pancreatic tail. REFERENCE: Society of Radiologists in Ultrasound Liver Stiffness Thresholds (2020): LIVER STIFFNESS THRESHOLDS: *Liver Stiffness equal or less than 1.3 m/s: High probability of being normal. *Liver Stiffness less than 1.7 m/s: In the absence of other known clinical signs, rules out compensated advanced chronic liver disease. *Liver Stiffness 1.7-2.1 m/s: Suggestive of compensated advanced chronic liver disease but need further test for confirmation. *Liver Stiffness over 2.1 m/s: Rules in compensated advanced chronic liver disease. *Liver Stiffness over 2.4 m/s: Suggestive of clinically significant portal hypertension. QUALITY OF DATA SET: *IQR/Median value equal or less than 0.15 implies a quality data set. *IQR/Median value over 0.15 implies a poor quality data set. SIGNIFICANT CHANGE FROM PRIOR EXAM: Significant change if liver stiffness measurement is 10% or greater from prior exam. OTHER CONSIDERATIONS: The stage of liver fibrosis may be overestimated in the setting of acute hepatitis, liver inflammation, elevated liver function tests, hepatic vascular congestion, obstructive cholestasis, non-fasting state, and infiltrative diseases such as amyloidosis and lymphoma. In some patients with NAFLD, the liver stiffness thresholds for compensated advanced chronic liver disease may be lower. In causes other than viral hepatitis and NAFLD, liver stiffness thresholds are not well established.
== END 2023-02-26 08:49 | disposition home or self-care (01) ==
LOC: HO.US 08:48
PROVIDERS: PCP Internal Medicine; Visit Provider Internal Medicine
DX: R74.01 Elevation of levels of liver transaminase levels (principal)
CPT/HCPCS: 76705; 76981

== ENCOUNTER 2023-03-03 14:11 | Outpatient (AMB) | payer OTHER, SELFPAY ==
--- NOTE | 2023-03-03 14:14 | MHC.OFFVIS ---
Intake Vital Signs 03/03/23 14:15 Height 5 ft 11 in Weight 251 lb 5.231 oz BMI 35.0 BP 124/86 Blood Pressure Location Lt brachial Position Sitting Pulse 104 H Intake Visit Reasons: Elevation of levels of liver transaminase levels Intake Note: Jefe presents in the office as a new patient for Elevated LFTs. CC: Pains in his epigastric region. Sometimes he has diarrhea. He has bloating a lot in his stomach. Allergies Contrast Dye Allergy (Intermediate, Verified 03/03/23 14:18) Hives Iodinated Contrast Media [IV CONTRAST] Allergy (Mild, Verified 03/03/23 14:18) HIVES HPI HPI Comments History of Present Illness Details This is a 52y.o M with PMH of HOCM, morbid obesity, t2dm, who has been referred to our office for elevated LFTs. Pt has had elevated transaminases with ALT>AST since at least 2018. Has been told its from fatty liver in the past based on imaging and minimal etOH intake hx. However he is unsure what prompted the more recent referral. Has may be 1-2 drinks a year. Reports previous hx of smoking but has quit. 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 No fam hx of liver disease including liver cancer. Previous imaging in 2018 has shown hepatic steatosis. Of note that CT also showed a > 3cm adrenal lesion on the left side but pt is unable to recall that finding or if that was evaluated further. More recently had US elastography ordered by his PCP on 02/26 but results still pending. Fib-4 2.70 i.e suggestive of advanced fibrosis. For his severe HOCM, he tells me he has been seeing Cardiology and is also undercare of [facility] and has been advised what sounds to be septal myectomy based on his description. He is not sure when his next follow up/surgery is. LVOT grad 165mmHg based on echo 08/2022!! PFSH Medical History Hepatic steatosis Personal history of nicotine dependence Lumbar degenerative disc disease HOCM (hypertrophic obstructive cardiomyopathy) Anxiety and depression Diabetes mellitus Hypertrophic cardiomyopathy Hyperlipidemia Hypertension Surgical History History of carpal tunnel surgery History of right inguinal hernia repair History of cardiac cath Family History Paternal Grandfather Heart disease Skin cancer Maternal Grandmother Skin cancer Maternal Grandfather Prostate cancer Father Prostate cancer Mother Diabetes Skin cancer Social History Housing: Apartment Alcohol intake: never Patient Tobacco Use Status: Former Tobacco user Quit Date: 2011 Tobacco use type: Cigarette Years Smoked: (Former smoker - onset 7yo, 3-4ppd x 3years - 60+PYH - quit 2011) e-Cigarette/Vaping Use: Never Used Second Hand Smoke Exposure: No service: No Current occupational status: employed Current occupational exposures/hazards: No Cognitive needs: No Hearing needs: No Vision needs: No Review of Systems Const All systems reviewed & are unremarkable except as noted in HPI and below Physical Exam Vital Signs: Last Vital Signs Pulse 104 H 03/03/23 14:15 BP 124/86 03/03/23 14:15 BMI result Body Mass Index 35.0 Gen appear: NAD, with obesity HEENT: nonicteric, no cervical lymphadenopathy Chest: CTA CVS: Rapid regular S1/S2 (got short of breath with lying down for exam) Abd: soft, nontender, nondistended, bowel sounds + Ext: no peripheral edema Neuro: A/Ox3, noted to move all extremities spontaneously Psych: interacting appropriately Assessment & Plan Assessment & Plan (1) Transaminitis: Code(s): R74.01 - Elevation of levels of liver transaminase levels (2) Hepatic steatosis: Code(s): K76.0 - Fatty (change of) liver, not elsewhere classified (3) Splenomegaly: Code(s): R16.1 - Splenomegaly, not elsewhere classified (4) HOCM (hypertrophic obstructive cardiomyopathy): Code(s): I42.1 - Obstructive hypertrophic cardiomyopathy (5) Adrenal mass: Code(s): E27.8 - Other specified disorders of adrenal gland (6) Colon cancer screening: Code(s): Z12.11 - Encounter for screening for malignant neoplasm of colon Plan 1. In terms of elevated LFTs with hepatosplenomegaly, likely secondary to MAFLD/HANCOCK. Based on Fib-4 likely has at least advanced fibrosis. US Elastography done but report pending. Will also r/o other causes of chronic liver disease such as iron overload, wilsons, AIH, A1At etc. - Labs ordered as below. - If US elasto confirms advanced liver disease should also undergo EGD for variceal screening however, given severe HOCM with very high LVOT gradient even at rest, this will be deferred until after he has been optimized from cardiac standpoint as this is elective at this time. - He was also advised on weight loss at least 10% TBW in 6 months. This will largely have to be through caloric restriction given he should avoid strenuous activity due to HOCM. - Control of metabolic factors including T2DM, HTN, HLD and management of PAPA as per PCP 2. Colon cancer screening: Due for CRC screening and a colo can be arranged at the same time as egd AFTER medical/surgical optimization of HOCM. 3. Adrenal lesion: Pt was also encouraged to follow up with his PCP for the L sided adrenal lesion noted on scan from 2018. Follow up in 3-4 weeks to review results of labs and elastography Orders: Orders IRON PROFILE 03/03/23 R74.01 - Elevation of levels of liver transaminase levels Immunoglobulin G 03/03/23 R74.01 - Elevation of levels of liver transaminase levels Lipid Panel 03/03/23 R74.01 - Elevation of levels of liver transaminase levels Liver Kidney Microsomal Ab 03/03/23 R74.01 - Elevation of levels of liver transaminase levels Alpha 1 Anti-trypsin 03/03/23 R74.01 - Elevation of levels of liver transaminase levels LATOYA Reflex Titer and Pattern 03/03/23 R74.01 - Elevation of levels of liver transaminase levels Phosphatidylethanol, Blood 03/03/23 R74.01 - Elevation of levels of liver transaminase levels Smooth Muscle Antibody 03/03/23 R74.01 - Elevation of levels of liver transaminase levels Ceruloplasmin 03/03/23 R74.01 - Elevation of levels of liver transaminase levels Ferritin 03/03/23 R74.01 - Elevation of levels of liver transaminase levels Complete Blood Count no Diff 03/03/23 R74.01 - Elevation of levels of liver transaminase levels Prothrombin Time INR 03/03/23 R74.01 - Elevation of levels of liver transaminase levels Liver Panel 03/03/23 R74.01 - Elevation of levels of liver transaminase levels Coding Level of Care Code New Pt Level 5 (95532) Diagnoses Transaminitis R74.01 Hepatic steatosis K76.0 Splenomegaly R16.1 HOCM (hypertrophic obstructive cardiomyopathy) I42.1 Adrenal mass E27.8 Colon cancer screening Z12.11
[2023-03-03 14:15] VITALS: BP 124/86; PULSE 104; BMI 35.0
== END 2023-03-03 14:50 | disposition home or self-care (01) ==
PROVIDERS: PCP Internal Medicine; Visit Provider Internal Medicine
DX: R74.01 Elevation of levels of liver transaminase levels (principal); K76.0 Fatty (change of) liver, not elsewhere classified; R16.1 Splenomegaly, not elsewhere classified; I42.1 Obstructive hypertrophic cardiomyopathy; E27.8 Other specified disorders of adrenal gland; Z12.11 Encounter for screening for malignant neoplasm of colon
CPT/HCPCS: 99204

== ENCOUNTER 2023-03-03 14:11 | Outpatient (REF) | payer OTHER, SELFPAY ==
[2023-03-05 12:43] LABS: Alpha 1 Anti-trypsin 136 mg/dL (83-199); Ceruloplasmin 22 mg/dL (18-36); Immunoglobulin G 1310 mg/dL (600-1640)
[2023-03-06 12:19] LABS: Smooth Muscle Antibody <20 U (<20)
[2023-03-07 09:38] LABS: Anti Nuclear Antibody Screen NEGATIVE (NEGATIVE)
[2023-03-08 12:49] LABS: Phosphatidylethanol 16:0-18:1 NEGATIVE; Phosphatidylethanol 16:0-18:2 NEGATIVE
[2023-03-09 22:44] LABS: Liver Kidney Microsomal Ab <=20.0 U (<=20.0)
== END 2023-03-03 14:12 | disposition home or self-care (01) ==
LOC: HO.LAB 14:11
PROVIDERS: PCP Internal Medicine; Visit Provider Internal Medicine
DX: R74.01 Elevation of levels of liver transaminase levels (principal); K76.0 Fatty (change of) liver, not elsewhere classified; R16.1 Splenomegaly, not elsewhere classified; I42.1 Obstructive hypertrophic cardiomyopathy; E27.8 Other specified disorders of adrenal gland
CPT/HCPCS: 36415; 80061; 80076; 80321; 82103; 82390; 82728; 82784; 83540; 85027; 85610; 86015; 86038; 86376; 99202

== ENCOUNTER 2023-03-09 09:58 | Outpatient (REF) | payer OTHER, SELFPAY ==
--- NOTE | ~2023-03-09 | FL_ITS ---
EXAMINATION: XR FLUOROSCOPY UPPER GI WITH AIR CLINICAL INFORMATION: Epigastric pain COMPARISON: None TECHNIQUE: Fluoroscopic air contrast upper GI examination was performed utilizing standard techniques with thin and thick barium and effervescent granules. Numerous spot images were obtained. FINDINGS: Lateral cine images of the oropharynx and hypopharynx demonstrate normal swallow mechanism with normal epiglottic inversion and soft palate elevation. No tracheal penetration, glottic or subglottic aspiration identified. No nasopharyngeal reflux present. Hypopharyngeal structures appear normal without evidence of mass or diverticulum. There was no significant cricopharyngeal achalasia. Dual and single contrast images of the esophagus demonstrate normal caliber, contour, and mucosal pattern. No evidence of stricture, mass, or ulcerations identified. Esophageal peristalsis was normal. Minimal gastroesophageal reflux present during the course of the exam to the level of the vickie. No definite hiatus hernia. Dual contrast and single contrast images of the stomach demonstrated normal contour and mucosal pattern without evidence of mass, ulceration, or other abnormality. Contrast freely passed into the gastric antrum and duodenal bulb without delay. Single and air-contrast images of the duodenal bulb demonstrate no abnormality. The duodenal sweep has a normal appearance, course, and mucosal fold appearance. There is rapid transit of barium through the jejunum, ileum and into the right colon. There is borderline thickening of the jejunal mucosal folds, with associated dilution of the barium that could represent a malabsorption disorder. FLUOROSCOPY TIME: 4 minute 33 seconds Number of Spot Images: 15 spot image capture; 7 fluoroscopic cine spot image captures. DOSE AREA PRODUCT: [id number] uGy-m2 (microgray-meter squared) FL/FL upper GI w air IMPRESSION: 1. Minimal gastroesophageal reflux. No hiatus hernia or esophageal mucosal abnormalities. 2. Examination notable for markedly quick progression of contrast throughout the small bowel and into the right colon, with suggestion of borderline fold thickening of the jejunum. There is also mild dilution of the barium throughout the small bowel. Findings could indicate underlying malabsorption disorder. This procedure was performed by Jefe Graves PA-C, and supervised by Dr. Woodruff
== END 2023-03-09 09:59 | disposition home or self-care (01) ==
LOC: HO.XRAY 09:58
PROVIDERS: PCP Internal Medicine; Visit Provider Internal Medicine
DX: R10.13 Epigastric pain (principal)
CPT/HCPCS: 74246

== ENCOUNTER → 2023-03-09 10:00 | Outpatient (BNV) | payer OTHER, SELFPAY | PROVIDERS: PCP Internal Medicine; Visit Provider Radiology Diagnostic Radiology | DX: R10.13 Epigastric pain (principal) | CPT/HCPCS: 74246 ==

== ENCOUNTER 2023-03-24 14:08 | Outpatient (AMB) | payer OTHER, SELFPAY ==
--- NOTE | 2023-03-24 14:09 | MHC.OFFVIS ---
Intake Vital Signs 03/24/23 14:29 Height 5 ft 11 in Weight 250 lb BMI 34.9 BP 155/80 H Blood Pressure Location Lt brachial Position Sitting Pulse 98 Intake Visit Reasons: 3 week follow up Elevation of levels of liver Intake Note: Jefe presents in the office as a 3 week follow up elevated LFTs , lab, and radiology results. Patient cc: middle abdominal pain on and off, acid reflex on and off, and constipation on and off. Food Safety Specialist Required: Yes Food Safety Specialist Name: [facility] [place] INTERPETER Accompanied by: Self / Same As Patient Allergies Contrast Dye Allergy (Intermediate, Verified 03/24/23 14:24) Hives Iodinated Contrast Media [IV CONTRAST] Allergy (Mild, Verified 03/24/23 14:24) HIVES HPI HPI Comments History of Present Illness Details This is a 52y.o M with PMH of HOCM, morbid obesity, t2dm, who has been referred to our office for elevated LFTs. 03/03/23: Pt has had elevated transaminases with ALT>AST since at least 2018. Has been told its from fatty liver in the past based on imaging and minimal etOH intake hx. However he is unsure what prompted the more recent referral. Has may be 1-2 drinks a year. Reports previous hx of smoking but has quit. 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 No fam hx of liver disease including liver cancer. Previous imaging in 2018 has shown hepatic steatosis. Of note that CT also showed a > 3cm adrenal lesion on the left side but pt is unable to recall that finding or if that was evaluated further. More recently had US elastography ordered by his PCP on 02/26 but results still pending. Fib-4 2.70 i.e suggestive of advanced fibrosis. For his severe HOCM, he tells me he has been seeing Cardiology and is also undercare of [facility] and has been advised what sounds to be septal myectomy based on his description. He is not sure when his next follow up/surgery is. LVOT grad 165mmHg based on echo 08/2022!! 03/24/23: Seen with live fast food services manager Here for follow up after work up for elevated LFTs as well as to discuss timing of colonoscopy. Currently apart from intermittent R sided discomfort does not have any GI issues. Labs reviewed and no evidence of AIH, iron overload, wilsons, A1At, celiac etc. Reports surgery may be early next year but does not recall if it has actually been scheduled. Was also seen by endocrine in Dec for adrenal lesion, which he did not remember. Also appears that did not remember to follow up with them as was asked to return in 6 weeks. [facility] Medical History Hepatic steatosis Personal history of nicotine dependence Lumbar degenerative disc disease HOCM (hypertrophic obstructive cardiomyopathy) Anxiety and depression Diabetes mellitus Hypertrophic cardiomyopathy Hyperlipidemia Hypertension Surgical History History of carpal tunnel surgery History of right inguinal hernia repair History of cardiac cath Family History Paternal Grandfather Heart disease Skin cancer Maternal Grandmother Skin cancer Maternal Grandfather Prostate cancer Father Prostate cancer Mother Diabetes Skin cancer Social History Housing: Apartment Alcohol intake: never Patient Tobacco Use Status: Former Tobacco user Quit Date: 2011 Tobacco use type: Cigarette Years Smoked: (Former smoker - onset 7yo, 3-4ppd x 3years - 61+[facility] - quit 2011) e-Cigarette/Vaping Use: Never Used Second Hand Smoke Exposure: No service: No Current occupational status: employed Current occupational exposures/hazards: No Cognitive needs: No Hearing needs: No Vision needs: No Review of Systems Const All systems reviewed & are unremarkable except as noted in HPI and below Physical Exam Vital Signs: Last Vital Signs Pulse 98 03/24/23 14:29 BP 155/80 H 03/24/23 14:29 BMI result Body Mass Index 34.9 Gen appear: NAD, with obesity HEENT: nonicteric, no cervical lymphadenopathy Chest: CTA CVS: Rapid regular S1/S2 (got short of breath with lying down for exam) Abd: soft, nontender, nondistended, bowel sounds + Ext: no peripheral edema Neuro: A/Ox3, noted to move all extremities spontaneously Psych: interacting appropriately Results Reviewed Results Reviewed: 02/26/23: Elastography Shear wave liver elastography median stiffness is 2.05 m/s (reference: normal median stiffness is 1.3 m/s or less). Assessment & Plan Assessment & Plan (1) Transaminitis: Code(s): R74.01 - Elevation of levels of liver transaminase levels (2) Hepatic steatosis: Code(s): K76.0 - Fatty (change of) liver, not elsewhere classified (3) Splenomegaly: Code(s): R16.1 - Splenomegaly, not elsewhere classified (4) HOCM (hypertrophic obstructive cardiomyopathy): Code(s): I42.1 - Obstructive hypertrophic cardiomyopathy (5) Adrenal mass: Code(s): E27.8 - Other specified disorders of adrenal gland (6) Colon cancer screening: Code(s): Z12.11 - Encounter for screening for malignant neoplasm of colon Plan 1. In terms of elevated LFTs with hepatosplenomegaly, likely secondary to MAFLD/HANCOCK and possibly due to hepatic congestion from heart failure. Based on Fib-4 and elastography likely has at least advanced fibrosis. - Reviewed with the pt that should undergo EGD for variceal screening however, given severe HOCM with very high LVOT gradient even at rest, this will be deferred until after he has been optimized from cardiac standpoint as this is elective at this time. - He was also advised on weight loss at least 10% TBW in 6 months. This will largely have to be through caloric restriction given he should avoid strenuous activity due to HOCM. - Control of metabolic factors including T2DM, HTN, HLD and management of PAPA as per PCP 2. Colon cancer screening: Due for CRC screening and a colo can be arranged at the same time as egd AFTER medical/surgical optimization of HOCM. 3. Adrenal lesion: Pt was also encouraged to follow up with [facility]. Pt was advised to call us when he has more information about the timing of his septal myectomy so we can schedule follow up for scopes. Patient Instructions: 1. The liver disease appears to be due to fatty liver as well as possible congestion from the heart disease. 2. Ideally recommend exercise as well for fatty liver however due to significant heart disease, we advise that you discuss with your Teachers Assistant first. 3. We will defer the endoscopic evaluation until you have been cleared from Cardiology standpoint. Please call us when you have more information about the timing of your surgery at [facility] so we can set it up for you. Coding Level of Care Code Est Pt Level 4 (35984) Diagnoses Transaminitis R74.01 Hepatic steatosis K76.0 Splenomegaly R16.1 HOCM (hypertrophic obstructive cardiomyopathy) I42.1 Adrenal mass E27.8 Colon cancer screening Z12.11
[2023-03-24 14:29] VITALS: BP 155/80; PULSE 98; BMI 34.9
== END 2023-03-24 14:57 | disposition home or self-care (01) ==
PROVIDERS: PCP Internal Medicine; Visit Provider Internal Medicine
DX: R74.01 Elevation of levels of liver transaminase levels (principal); K76.0 Fatty (change of) liver, not elsewhere classified; R16.1 Splenomegaly, not elsewhere classified; I42.1 Obstructive hypertrophic cardiomyopathy; E27.8 Other specified disorders of adrenal gland; Z12.11 Encounter for screening for malignant neoplasm of colon
CPT/HCPCS: 99214

== ENCOUNTER → 2023-03-24 14:08 | Outpatient (BNVA) | payer OTHER, SELFPAY | PROVIDERS: PCP Internal Medicine; Visit Provider Internal Medicine | DX: Z01.818 Encounter for other preprocedural examination (principal); R74.01 Elevation of levels of liver transaminase levels; K76.0 Fatty (change of) liver, not elsewhere classified; R16.1 Splenomegaly, not elsewhere classified; I42.1 Obstructive hypertrophic cardiomyopathy; E27.8 Other specified disorders of adrenal gland | CPT/HCPCS: 99212 ==

== ENCOUNTER 2023-07-14 14:38 | Outpatient (AMB) | payer OTHER, SELFPAY ==
--- NOTE | 2023-07-14 14:42 | A.OFFPC_ITS ---
Vital Signs 07/14/23 14:44 Height 5 ft 11 in Weight 248 lb BMI 34.6 BP 160/82 H Blood Pressure Location Lt brachial Position Sitting Intake Visit Reasons: dm Intake Note: Patient here for a follow up DM, pain under testicle, body pain, back pain that radiates down legs , joint pains Wool Broker Required: No Accompanied by: Self / Same As Patient Allergies Contrast Dye Allergy (Intermediate, Verified 07/14/23 14:59) Hives Iodinated Contrast Media [IV CONTRAST] Allergy (Mild, Verified 07/14/23 14:59) HIVES Medication List - Last Reconciled 07/14/23 by Maricarmen Medel MD acetaminophen 500 mg PO TID PRN amoxicillin 500 mg PO BID 5 days blood sugar diagnostic (FreeStyle Test strips) Use 1 test strip three times a day lancets (FreeStyle Lancets) Use 1 lancet TID lisinopril 10 mg PO DAILY 90 days metformin 1,000 mg PO BID 90 days miscellaneous medical supply 2 ea miscellaneous DAILY 90 days Ventolin HFA 90 mcg/actuation (albuterol sulfate) 2 puffs inhalation Q6H PRN 30 days NS verapamil ER 240 mg PO BID Tobacco use date assessed: 07/14/23 Dental Screening Dental Screen Date: 07/14/23 Did you have a dental visit in the last 12 months?: Yes Did you have a dental problem in the last 6 months where you did not have access to dental care?: No Was dental information given to patient?: Patient has dentist HPI HPI Comments History of Present Illness Details This is a 53-year-old male with diabetes mellitus type 2, hypertension, hypertrophic obstructive cardiomyopathy and adrenal mass that comes today for follow-up on his conditions. A1c not on goal. He refused to take Trulicity and was only taking metformin. He declines the use of insulin. I will start him on Jardiance. Blood pressure elevated and I will increase lisinopril from 10 mg to 20 mg. Blood pressure will be recheck in 3 weeks by nurse navigator. Last echocardiogram showed ejection fraction over 70% and it was done August 2022. He follows with cardiology for his hypertrophic obstructive cardiomyopathy. Has not gain 5 lb in a week. Has an adrenal mass in which pheochromocytoma was rule out years ago in [facility]. Follows with [place] endocrinology for this matter. He forgets everything including appointments. Brother Daniard for me to explain how to use it. I gave him a pamphlet with drawings. Has a urine abnormality in which consists of urine dribbling and will be referred to Urology. [facility] Medical History (Updated 07/14/23 @ 15:47 by Maricarmen Medel MD) Hepatic steatosis Personal history of nicotine dependence Lumbar degenerative disc disease HOCM (hypertrophic obstructive cardiomyopathy) Anxiety and depression Diabetes mellitus Hypertrophic cardiomyopathy Hyperlipidemia Hypertension Surgical History History of carpal tunnel surgery History of right inguinal hernia repair History of cardiac cath Family History Paternal Grandfather Heart disease Skin cancer Maternal Grandmother Skin cancer Maternal Grandfather Prostate cancer Father Prostate cancer Mother Diabetes Skin cancer Social History Housing: Apartment Alcohol intake: never Patient Tobacco Use Status: Former Tobacco user Quit Date: 2011 Tobacco use type: Cigarette Years Smoked: (Former smoker - onset 7yo, 3-4ppd x 3years - 61+[facility] - quit 2011) e-Cigarette/Vaping Use: Never Used Second Hand Smoke Exposure: No service: No Current occupational status: employed Current occupational exposures/hazards: No Cognitive needs: No Hearing needs: No Vision needs: No Questionnaire PHQ-9 Over the last 2 weeks, how often have you been bothered by any of the following problems? 1. Little interest or pleasure in doing things: not at all 2. Feeling down, depressed, or hopeless: several days 3. Trouble falling or staying asleep, or sleeping too much: several days 4. Feeling tired or having little energy: several days 5. Poor appetite or overeating: not at all 6. Feeling bad about yourself - or that you are a failure or have let yourself or your family down: not at all 7. Trouble concentrating on things, such as reading the newspaper or watching television: several days 8. Moving or speaking so slowly that other people could have noticed. Or the opposite - being so fidgety or restless that you have been moving around a lot more than usual: several days 9. Thoughts that you would be better off or of hurting yourself in some way: not at all Total score: 5 Depression Screening Interpretation: Negative Depression Screening Done: Yes 24916 - PHQ-9 Billing: Yes Source: Developed by Drs. Lucio Ralph, Joan Villarreal, Mayo Armendariz and colleagues, with an educational kaylee from [employer]. Thrive Questionnaire Date Thrive assessed: 07/29/22 MARYANN-7 AMB Questionnaire MARYANN-7 Date MARYANN - 7 assessed: 07/14/23 Feeling nervous, anxious, or on edge: 3 = Nearly every day Not being able to stop or control worryin = Not at all Worrying too much about different things: 1 = Several days Trouble relaxin = Not at all Being so restless that it is hard to sit still: 0 = Not at all Becoming easily annoyed or irritable: 0 = Not at all Feeling afraid as if something awful might happen: 0 = Not at all Total MARYANN-7 score (0-4 normal; 5-9 mild; 10-14 moderate; 15-21 severe): 4 Source: Developed by Drs. Lucio Ralph, Joan Villarreal, Mayo Armendariz and colleagues, with an educational kaylee from [employer]. MARYANN-7 Assessment Billing MARYANN-7 Assessment Tool: MARYANN-7 Assessment 49455 Review of Systems Const All systems reviewed & are unremarkable except as noted in HPI and below Eyes Reports no additional complaints, Denies change in vision and Denies other visual disturbances Card Denies chest pain at rest, Denies chest pain with activity, Denies edema, Denies irregular heart rhythm, Denies claudication, Denies dyspnea, Denies dyspnea on exertion, Denies orthopnea, Denies paroxysmal nocturnal dyspnea and Denies slow heart rate Resp Denies cough, Denies dyspnea and Denies dyspnea on exertion GI Denies abdominal pain, Denies change in bowel habits, Denies excessive flatus, Denies nausea and Denies vomiting Denies urinary hesitancy, Denies urinary incontinence and Denies urinary urgency Musc Denies abnormal gait, Denies atrophy, Denies deformity and Denies limited range of motion Skin/Breast Denies bleeding lesions, Denies changing lesions and Denies rash Neuro Denies abnormal gait, Denies behavioral changes and Denies lack of coordination Psych Denies behavioral changes Physical exam (Primary Care) Vital Signs: Last Vital Signs BP 160/82 H 07/14/23 14:44 BMI result Body Mass Index 34.6 Tobacco/Smoking Status: Tobacco use Status Tobacco use date assessed 07/14/23 07/14/23 14:51 Patient Tobacco Use Status Former Tobacco user 07/14/23 14:43 Tobacco use type Cigarette 07/14/23 14:43 e-Cigarette/Vaping Use Never Used 07/14/23 14:43 PHQ-9: PHQ-9 Score PHQ-9: Total score 5 07/14/23 15:09 Depression Screening Interpretation: Negative Thrive Assessment: Date of Thrive Assessment Date Thrive assessed 07/29/22 07/14/23 14:43 Eyes General: appearance normal, both eyes and all related structures Eyelids: Yes eyelids normal Conjunctivae: conjunctivae normal Neck Neck: Yes normal visual inspection and Yes supple Resp Effort & Inspection: normal respiratory effort Auscultation: clear to auscultation bilaterally Cardio Jugular venous distension: no JVD Rate: regular rate Rhythm: regular rhythm Heart sounds: S1 normal heart sound present and S2 normal heart sound present Extrem General: Yes full ROM Results AMB Hemoglobin A1c AMB Hemoglobin A1c 9.7 % Last Edit by JENA Lopez on 07/14/23 15:0 3 Results Reviewed Results Reviewed: Laboratory Last Values Hgb A1c (Clinic) 9.7 % (4.0-6.0) H 07/14/23 14:40 Assessment and Plan Assessment & Plan (1) HOCM (hypertrophic obstructive cardiomyopathy): Code(s): I42.1 - Obstructive hypertrophic cardiomyopathy Plan: Continue verapamil. The goal is to not gain 5 lb in a week. Follow-up with Cardiology. (2) Adrenal mass: Code(s): E27.8 - Other specified disorders of adrenal gland Plan: Follow-up with [place] endocrinology. (3) Diabetes mellitus: Code(s): E11.9 - Type 2 diabetes mellitus without complications Qualifiers: Diabetes mellitus type: type 2 Diabetes mellitus shelter insulin use: without shelter use Diabetes mellitus complication status: without complication Qualified Code(s): E11.9 - Type 2 diabetes mellitus without complications Plan: Continue metformin. Start Jardiance. A1c goal is equal or less than 7%. (4) Hypertension: Code(s): I10 - Essential (primary) hypertension Qualifiers: Hypertension type: unspecified Qualified Code(s): I10 - Essential (primary) hypertension Plan: Increase lisinopril from 10 mg to 20 mg. Blood pressure goal is equal or less than 130/80. Recheck blood pressure with nurse navigator in 3 weeks. Orders: Orders AMB Hemoglobin A1c Today E11.9 - Type 2 diabetes mellitus without complications Referrals Urology Referral R82.90 - Unspecified abnormal findings in urine Medications: New lisinopril 20 mg PO DAILY 90 days 90 tabs 1RF [diabetic shoes with inserts] As directed 1 ea 0RF E11.9 - Type 2 diabetes mellitus without complications empagliflozin (Jardiance) 10 mg PO DAILY 90 days 90 tabs 1RF E11.9 - Type 2 diabetes mellitus without complications Discontinued lisinopril Discontinued Reason: Patient Completed Course 10 mg PO DAILY 90 days 90 tabs 1RF I10 - Essential (primary) hypertension Coding Level of Care Code Est Pt Level 4 (37297) Diagnoses HOCM (hypertrophic obstructive cardiomyopathy) I42.1 Adrenal mass E27.8 Type 2 diabetes mellitus without complication, without long-term current use of insulin E11.9 Diabetes mellitus type: type 2 Diabetes mellitus shelter insulin use: without shelter use Diabetes mellitus complication status: without complication Hypertension, unspecified type I10 Hypertension type: unspecified Additional Codes MARYANN-7 Assessment Billing - MARYANN-7 Assessment Tool: MARYANN-7 Assessment [id number] ([id number]) Time Spent (min) 26
[2023-07-14 14:44] VITALS: BP 160/82; BMI 34.6
== END 2023-07-14 15:26 | disposition home or self-care (01) ==
PROVIDERS: PCP Internal Medicine; Visit Provider Internal Medicine
DX: I42.1 Obstructive hypertrophic cardiomyopathy (principal); E27.8 Other specified disorders of adrenal gland; E11.9 Type 2 diabetes mellitus without complications; I10 Essential (primary) hypertension
CPT/HCPCS: 83036; 99214

== ENCOUNTER 2023-07-27 14:00 | Outpatient (AMB) | payer OTHER, SELFPAY ==
[2023-07-27 14:11] VITALS: BP 162/90; PULSE 80; BMI 34.6
--- NOTE | 2023-07-27 14:11 | A.OFFVIS_ITS ---
Intake Vital Signs 07/27/23 14:11 Height 5 ft 11 in Weight 247 lb 12.793 oz BMI 34.6 BP 162/90 H Blood Pressure Location Lt brachial Position Sitting Pulse 80 Pulse Source Pulse Oximeter Intake Visit Reasons: f/u Design Editor Required: Yes Design Editor Language: Sierra Leonean Allergies Contrast Dye Allergy (Intermediate, Verified 07/27/23 14:13) Hives Iodinated Contrast Media [IV CONTRAST] Allergy (Mild, Verified 07/27/23 14:13) HIVES Medication List - Last Reconciled 07/27/23 by Shari Calvo, JEWEL BEARING TURNER-C acetaminophen 500 mg PO TID PRN blood sugar diagnostic (FreeStyle Test strips) Use 1 test strip three times a day [diabetic shoes with inserts As directed] empagliflozin (Jardiance) 10 mg PO DAILY 90 days lancets (FreeStyle Lancets) Use 1 lancet TID lisinopril 20 mg PO DAILY 90 days metformin 1,000 mg PO BID 90 days miscellaneous medical supply 2 ea miscellaneous DAILY 90 days Ventolin HFA 90 mcg/actuation (albuterol sulfate) 2 puffs inhalation Q6H PRN 30 days NS verapamil ER 240 mg PO BID HPI f/u HPI Details Jefe is a 53-year-old male with past medical history of hypertension, hyperlipidemia, diabetes, mild obesity, mitral endocarditis, HOCM who presents for follow-up. Today he states that he has not been back to [place] since his last visit in February. He says he has had a lot of stress going on in his life. He wants to go back and tells me he will make an appointment by tomorrow to go for a follow- up. He is interested in having the surgery to help his heart. He does have shortness of breath with walking distances and stair climbing. He says his symptom has not worsened since his last visit here. He does get an uncomfortable feeling in his chest when his breathing is short. He has no lightheadedness, presyncope, syncope, falls. No PND, orthopnea or edema. He says he is taking his medications as directed. 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 [facility] Medical History Hepatic steatosis Personal history of nicotine dependence Lumbar degenerative disc disease HOCM (hypertrophic obstructive cardiomyopathy) Anxiety and depression Diabetes mellitus Hypertrophic cardiomyopathy Hyperlipidemia Hypertension Surgical History (Updated 07/27/23 @ 16:38 by POLY Lowe) History of carpal tunnel surgery History of right inguinal hernia repair History of cardiac cath Family History Paternal Grandfather Heart disease Skin cancer Maternal Grandmother Skin cancer Maternal Grandfather Prostate cancer Father Prostate cancer Mother Diabetes Skin cancer Social History Housing: Apartment Alcohol intake: never Patient Tobacco Use Status: Former Tobacco user Quit Date: 2011 Tobacco use type: Cigarette Years Smoked: (Former smoker - onset 7yo, 3-4ppd x 3years - 60+PYH - quit 2011) e-Cigarette/Vaping Use: Never Used Second Hand Smoke Exposure: No service: No Current occupational status: employed Current occupational exposures/hazards: No Cognitive needs: No Hearing needs: No Vision needs: No Review of Systems Const All systems reviewed & are unremarkable except as noted in HPI and below ENT Denies dizziness Card Reports chest pain, Denies chest pain at rest, Denies chest pain with activity, Denies rapid heart rate, Denies pedal edema, Denies edema, Denies leg edema, Denies lightheadedness, Denies palpitations, Denies dyspnea, Reports dyspnea on exertion and Denies orthopnea Resp Denies cough, Denies dyspnea and Reports dyspnea on exertion GI Denies hematochezia and Denies change in stool character Musc Denies abnormal gait, Denies limited range of motion, Denies muscle cramps, Denies muscle weakness, Denies numbness, Denies radiating pain into limb, Denies stiffness and Denies tingling Neuro Denies abnormal gait, Denies dizziness, Denies numbness and Denies tingling Endo Denies palpitations Physical Exam Vital Signs: Last Vital Signs Pulse 80 07/27/23 14:11 BP 162/90 H 07/27/23 14:11 BMI result Body Mass Index 34.6 Const General: cooperative, healthy appearing, comfortable and no acute distress Orientation/consciousness: patient oriented x3 Neck Neck: Yes normal visual inspection and Yes no JVD Resp Effort & Inspection: normal respiratory effort Auscultation: clear to auscultation bilaterally, no crackles, no rales, no rhonchi and no wheezes Cardio Jugular venous distension: no JVD Rate: regular rate Rhythm: regular rhythm Heart sounds: S1 normal heart sound present, S2 normal heart sound present, Murmur heart sound present (systolic, left sternal border) and no rubs Neuro General: patient oriented x3 Extrem General: Yes normal to inspection, No no pedal edema and No calf tenderness Psych Appearance: grossly normal Mental Status: mental status grossly normal Speech and movement: Normal speech and movement present Assessment & Plan Assessment & Plan (1) HOCM (hypertrophic obstructive cardiomyopathy): Code(s): I42.1 - Obstructive hypertrophic cardiomyopathy Plan: History of HOCM. Last echocardiogram done 08/25/2022 showed hyperdynamic EF greater than 70%, severe increase in the LV wall thickness, peak LVOT gradient 165 mmHg, Valsalva not done. He was referred to the hypertrophic cardiomyopathy Clinic in [place]. He has been seen in consultation and according to notes he was advised surgical correction. He has not been back for follow-up. Today he tells me he is interested in having the surgery and will call tomorrow to set up an appointment for follow-up visit. He does report shortness of breath with walking and stair climbing. He states his symptom has not worsened in the last few months. On exam he has no signs of heart failure. His pulse is regular on examination, rate 80. No heart palpitations, lightheadedness, presyncope, syncope. Blood pressure is elevated at 162/90. Meds reviewed with Dr. Davila. Use of lisinopril is not ideal in patient with this diagnosis. Will reduce lisinopril down to 10 mg daily. Will add carvedilol 3.125 mg b.i.d.. Continue verapamil 240 mg b.i.d.. Office blood pressure check in 1-2 weeks. Instructed on only light physical activity. Cardiology office visit 3 months, sooner if needed (2) Hypertension: Code(s): I10 - Essential (primary) hypertension Qualifiers: Hypertension type: unspecified Qualified Code(s): I10 - Essential (primary) hypertension Plan: As above (3) Obstructive sleep apnea: Onset Date: ~2012 Comment: (non-compliant with cpap) Code(s): G47.33 - Obstructive sleep apnea (adult) (pediatric) Plan: He reports that he has not worn a CPAP mask in many years. Treating sleep apnea will be beneficial for him. Water a in-hospital sleep study to evaluate degree of sleep apnea. (4) History of cardiac cath: Comment: (Normal cardiac cath in 2018) Code(s): Z98.890 - Other specified postprocedural states Plan: As above Plan Time spent on chart review, documentation, interview and assessment Orders: Orders RT PSG in-lab sleep study Today G47.33 - Obstructive sleep apnea (adult) (pe diatric) Medications: New lisinopril does not need refill now 10 mg PO DAILY 30 tabs 3RF carvedilol must administer with a meal/food 3.125 mg PO BID 30 days 60 tabs 5RF Discontinued lisinopril Discontinued Reason: Doctor's Order 20 mg PO DAILY 90 days 90 tabs 1RF Coding Level of Care Code Est Pt Level 4 (84044) Diagnoses HOCM (hypertrophic obstructive cardiomyopathy) I42.1 Hypertension, unspecified type I10 Hypertension type: unspecified Obstructive sleep apnea G47.33 History of cardiac cath Z98.890 Time Spent (min) 30
== END 2023-07-27 14:41 | disposition home or self-care (01) ==
PROVIDERS: PCP Internal Medicine; Visit Provider Nurse Practitioner Family
DX: I42.1 Obstructive hypertrophic cardiomyopathy (principal); I10 Essential (primary) hypertension; G47.33 Obstructive sleep apnea (adult) (pediatric); Z98.890 Other specified postprocedural states
CPT/HCPCS: 99214

== ENCOUNTER → 2023-07-27 14:00 | Outpatient (BNVA) | payer OTHER, SELFPAY | PROVIDERS: PCP Internal Medicine; Visit Provider Nurse Practitioner Family | DX: I42.1 Obstructive hypertrophic cardiomyopathy (principal); I10 Essential (primary) hypertension; G47.33 Obstructive sleep apnea (adult) (pediatric); Z98.890 Other specified postprocedural states | CPT/HCPCS: 99212 ==

== ENCOUNTER 2023-10-28 14:25 | Outpatient (AMB) | payer OTHER, SELFPAY ==
[2023-10-28 14:27] VITALS: BP 142/86; BMI 34.2
--- NOTE | 2023-10-28 14:27 | A.OFFPC_ITS ---
Vital Signs 10/28/23 14:27 10/28/23 14:44 Height 5 ft 11 in Weight 245 lb BMI 34.2 BP 142/86 H 138/80 Blood Pressure Location Lt brachial Lt brachial Position Sitting Sitting Intake Visit Reasons: Annual Exam- NEEDS A1C Intake Note: Patient here for an annual physical exam, c/o left side flank pain Activity Specialist Required: No Accompanied by: Self / Same As Patient Allergies Contrast Dye Allergy (Intermediate, Verified 10/28/23 14:45) Hives Iodinated Contrast Media [IV CONTRAST] Allergy (Mild, Verified 10/28/23 14:45) HIVES Medication List - Last Reconciled 10/28/23 by Maricarmen Medel MD acetaminophen 500 mg PO TID PRN blood sugar diagnostic (FreeStyle Test strips) Use 1 test strip three times a day carvedilol 3.125 mg PO BID 30 days clotrimazole-betamethasone 1-0.05 % 1 appl topical BID 2 weeks [diabetic shoes with inserts As directed] empagliflozin (Jardiance) 10 mg PO DAILY 90 days lancets (FreeStyle Lancets) Use 1 lancet TID lisinopril 10 mg PO DAILY metformin 1,000 mg PO BID 90 days miscellaneous medical supply 2 ea miscellaneous DAILY 90 days Ventolin HFA 90 mcg/actuation (albuterol sulfate) 2 puffs inhalation Q6H PRN 30 days NS verapamil ER 240 mg PO BID Tobacco use date assessed: 07/14/23 Dental Screening Dental Screen Date: 07/14/23 HPI HPI Comments History of Present Illness Details This is a 53-year-old male with diabetes mellitus type 2, hypertrophic obstructive cardiomyopathy and adrenal mass that comes for his physical exam. A1c not on goal and I will increase Jardiance from 10 mg to 25 mg. Cardiomyopathy is follow by cardiology which has not significantly changed. He does complains of chest pain that happens at rest and on exertion. No shortness on breath. Has an adrenal mass that had a negative workup for pheochromocytoma. Has not had a colonoscopy and did not understood the Cologuard. Complains of abdominal pain and will be referred to Gastroenterology. [facility] Medical History (Updated 10/29/23 @ 09:54 by Maricarmen Medel MD) Hepatic steatosis Personal history of nicotine dependence Lumbar degenerative disc disease HOCM (hypertrophic obstructive cardiomyopathy) Anxiety and depression Diabetes mellitus Hypertrophic cardiomyopathy Hyperlipidemia Hypertension Surgical History History of carpal tunnel surgery History of right inguinal hernia repair History of cardiac cath Family History Paternal Grandfather Heart disease Skin cancer Maternal Grandmother Skin cancer Maternal Grandfather Prostate cancer Father Prostate cancer Mother Diabetes Skin cancer Social History (Updated 10/28/23 @ 14:50 by Maricarmen Medel MD) Housing: Apartment Alcohol intake: former Patient Tobacco Use Status: Former Tobacco user Tobacco use type: Cigarette Years Smoked: (Former smoker - onset 7yo, 3-4ppd x 3years - 60+PYH - quit 2011) e-Cigarette/Vaping Use: Never Used Second Hand Smoke Exposure: No service: No Current occupational status: employed Current occupational exposures/hazards: No Cognitive needs: No Hearing needs: No Vision needs: No Questionnaire Thrive Questionnaire Date Thrive assessed: 07/29/22 AUDIT C Alcohol Use Questionnaire (AUDIT-C) 1. How often do you have a drink containing alcohol?: Never Total Score: 0 Score Reviewed/Action Taken: No MARYANN-7 AMB Questionnaire MARYANN-7 Date MARYANN - 7 assessed: 07/14/23 Source: Developed by Drs. Lucio Ralph, Joan Villarreal, Mayo Armendariz and colleagues, with an educational kaylee from [employer]. Review of Systems Const All systems reviewed & are unremarkable except as noted in HPI and below Card Reports chest pain at rest, Reports chest pain with activity, Denies edema, Denies irregular heart rhythm, Denies claudication, Denies dyspnea, Denies dyspnea on exertion, Denies orthopnea, Denies paroxysmal nocturnal dyspnea and Denies slow heart rate Resp Denies cough, Denies dyspnea and Denies dyspnea on exertion GI Reports abdominal pain, Denies change in bowel habits, Denies excessive flatus, Denies nausea and Denies vomiting Denies urinary hesitancy, Denies urinary incontinence and Denies urinary urgency Physical exam (Primary Care) Vital Signs: Last Vital Signs BP 138/80 10/28/23 14:44 BMI result Body Mass Index 34.2 BMI Assessment/Plan discussion: High BMI High, discussed plan: lifestyle, weight reduction, dietary and physical activity Tobacco/Smoking Status: Tobacco use Status Tobacco use date assessed 07/14/23 10/28/23 14:34 Patient Tobacco Use Status Former Tobacco user 10/28/23 14:50 Tobacco use type Cigarette 10/28/23 14:50 e-Cigarette/Vaping Use Never Used 10/28/23 14:50 Thrive Assessment: Date of Thrive Assessment Date Thrive assessed 07/29/22 10/28/23 14:34 Const Orientation/consciousness: patient oriented x3 HENMT Head: Yes normal to inspection, Yes normocephalic and Yes atraumatic Ears: external ears normal Eyes General: appearance normal, both eyes and all related structures Eyelids: Yes eyelids normal Conjunctivae: conjunctivae normal Neck Neck: Yes normal visual inspection and Yes supple Resp Effort & Inspection: normal respiratory effort Auscultation: clear to auscultation bilaterally Cardio Jugular venous distension: no JVD Rate: regular rate Rhythm: regular rhythm Heart sounds: S1 normal heart sound present and S2 normal heart sound present GI Inspection: Yes normal to inspection Palpation (GI): Soft to palpation and nontender Auscultation: normal bowel sounds Skin General skin exam: no rashes or lesions noted Neuro General: patient oriented x3 and no focal motor deficits Extrem General: Yes full ROM Psych Appearance: grossly normal Results AMB Hemoglobin A1c AMB Hemoglobin A1c 8.2 % Last Edit by JENA Lopez on 10/28/23 14:3 9 Results Reviewed Results Reviewed: Laboratory Last Values Hgb A1c (Clinic) 8.2 % (4.0-6.0) H 10/28/23 14:27 Assessment and Plan Assessment & Plan (1) Physical exam: Code(s): Z00.00 - Encounter for general adult medical examination without abnormal findings Plan: Repeat in a year. (2) Diabetes mellitus: Code(s): E11.9 - Type 2 diabetes mellitus without complications Qualifiers: Diabetes mellitus type: type 2 Diabetes mellitus watermelon inspector insulin use: without watermelon inspector use Diabetes mellitus complication status: without complication Qualified Code(s): E11.9 - Type 2 diabetes mellitus without complications Plan: Increase Jardiance. A1c goal is equal or less than 7%. (3) HOCM (hypertrophic obstructive cardiomyopathy): Code(s): I42.1 - Obstructive hypertrophic cardiomyopathy Plan: Follow-up with Cardiology. The goal is to not gain 5 lb in a week. (4) Adrenal mass: Code(s): E27.8 - Other specified disorders of adrenal gland Plan: Has already has been workup. Orders: Orders Microalbumin, Random (w Creat) 10/28/23 E11.9 - Type 2 diabetes mellitus without complications Vitamin D 25-OH Total 10/28/23 E55.9 - Vitamin D deficiency, unspecified NT-proBNP 10/28/23 I42.1 - Obstructive hypertrophic cardiomyopathy AMB Hemoglobin A1c 10/28/23 E11.9 - Type 2 diabetes mellitus without complications Lipid Panel 10/28/23 E78.5 - Hyperlipidemia, unspecified Comprehensive [place]. Panel Fast 10/28/23 I42.1 - Obstructive hypertrophic cardiomyopathy Referrals Gastroenterology Referral R10.9 - Unspecified abdominal pain Medications: New empagliflozin (Jardiance) 25 mg PO DAILY 90 tabs 1RF 90 days Discontinued empagliflozin (Jardiance) Discontinued Reason: Patient Completed Course 10 mg PO DAILY 90 days 90 tabs 1RF E11.9 - Type 2 diabetes mellitus without complications Coding Level of Care Code Est Pt Prev Care 40-64y(28937) Diagnoses Physical exam Z00.00 Type 2 diabetes mellitus without complication, without long-term current use of insulin E11.9 Diabetes mellitus type: type 2 Diabetes mellitus watermelon inspector insulin use: without [facility] use Diabetes mellitus complication status: without complication HOCM (hypertrophic obstructive cardiomyopathy) I42.1 Adrenal mass E27.8 Time Spent (min) 33
[2023-10-28 14:44] VITALS: BP 138/80
== END 2023-10-28 15:05 | disposition home or self-care (01) ==
PROVIDERS: PCP Internal Medicine; Visit Provider Internal Medicine
DX: E11.9 Type 2 diabetes mellitus without complications (principal)
CPT/HCPCS: 83036; 99396

== ENCOUNTER 2023-11-02 14:06 | Outpatient (AMB) | payer OTHER, SELFPAY ==
[2023-11-02 14:10] VITALS: BP 146/78; PULSE 72; BMI 34.1
--- NOTE | 2023-11-02 14:10 | MHC.OFFVIS ---
Vital Signs 11/02/23 14:10 Height 5 ft 11 in Weight 244 lb 11.41 oz BMI 34.1 BP 146/78 H Blood Pressure Location Lt brachial Position Sitting Pulse 72 Intake Visit Reasons: 3 mth f/up DC Intake Note: 3 month follow-up after seeing Shari feeling ok Senior Human Resources Representative Required: Yes Senior Human Resources Representative Name: Isabela edwards Allergies Contrast Dye Allergy (Intermediate, Verified 10/28/23 14:45) Hives Iodinated Contrast Media [IV CONTRAST] Allergy (Mild, Verified 10/28/23 14:45) HIVES Medication List - Last Reconciled 11/02/23 by Donato Davila MD acetaminophen 500 mg PO TID PRN blood sugar diagnostic (FreeStyle Test strips) Use 1 test strip three times a day carvedilol 3.125 mg PO BID 30 days clotrimazole-betamethasone 1-0.05 % 1 appl topical BID 2 weeks [diabetic shoes with inserts As directed] empagliflozin (Jardiance) 25 mg PO DAILY 90 days lancets (FreeStyle Lancets) Use 1 lancet TID lisinopril 10 mg PO DAILY metformin 1,000 mg PO BID 90 days miscellaneous medical supply 2 ea miscellaneous DAILY 90 days Ventolin HFA 90 mcg/actuation (albuterol sulfate) 2 puffs inhalation Q6H PRN 30 days NS verapamil ER 240 mg PO BID HPI Comments Details: Jefe comes for follow-up. History was obtained with help of job press feeder over the telephone. His sister also came online during the visit. Patient is not still had an appointment in [place]. He was blaming his sister for not able to take him although the sister says that patient is very anxious and does not want to have surgery. He has been recommended septal myectomy in the past for his hypertrophic obstructive cardiomyopathy. He has not had a follow-up appointment. Sister would like him to be referred to [facility]. Patient continues to have symptoms exertional shortness of breath chest pressure. Takes all his medications. Blood pressures been well controlled. Denies any orthopnea, PND, leg edema. Last echocardiogram showed normal LV ejection fraction with severe LVH with severe obstructive physiology. REPLACED BY [facility] Medical History Hepatic steatosis Personal history of nicotine dependence Lumbar degenerative disc disease HOCM (hypertrophic obstructive cardiomyopathy) Anxiety and depression Diabetes mellitus Hypertrophic cardiomyopathy Hyperlipidemia Hypertension Surgical History History of carpal tunnel surgery History of right inguinal hernia repair History of cardiac cath Family History Paternal Grandfather Heart disease Skin cancer Maternal Grandmother Skin cancer Maternal Grandfather Prostate cancer Father Prostate cancer Mother Diabetes Skin cancer Social History Housing: Apartment Alcohol intake: former Patient Tobacco Use Status: Former Tobacco user Tobacco use type: Cigarette Years Smoked: (Former smoker - onset 7yo, 3-4ppd x 3years - 60+PYH - quit 2011) e-Cigarette/Vaping Use: Never Used Second Hand Smoke Exposure: No service: No Current occupational status: employed Current occupational exposures/hazards: No Cognitive needs: No Hearing needs: No Vision needs: No Review of Systems Const Denies chills, Denies fatigue, Denies fever(s), Denies frequent falls, Denies weakness, Denies weight gain and Denies weight loss ENT Denies dizziness Card Denies chest pain, Denies leg edema, Denies lightheadedness, Denies palpitations, Denies dyspnea, Denies dyspnea on exertion, Denies orthopnea and Denies other (loss of consciousness) Resp Denies cough, Denies dyspnea and Denies dyspnea on exertion GI Denies hematochezia and Denies change in stool character Musc Denies abnormal gait, Denies muscle weakness, Denies numbness, Denies radiating pain into limb and Denies tingling Neuro Denies abnormal gait, Denies dizziness, Denies frequent falls, Denies numbness, Denies tingling and Denies weakness Endo Denies fatigue and Denies palpitations Physical Exam Vital Signs: Last Vital Signs Pulse 72 11/02/23 14:10 BP 146/78 H 11/02/23 14:10 BMI result Body Mass Index 34.1 Const General: cooperative, healthy appearing, comfortable and no acute distress Orientation/consciousness: patient oriented x3 Neck Neck: Yes normal visual inspection and Yes no JVD Resp Effort & Inspection: normal respiratory effort Auscultation: clear to auscultation bilaterally, no crackles, no rales, no rhonchi and no wheezes Cardio Jugular venous distension: no JVD Rate: regular rate Rhythm: regular rhythm Heart sounds: S1 normal heart sound present, S2 normal heart sound present, Murmur heart sound present (systolic, left sternal border) and no rubs Neuro General: patient oriented x3 Extrem General: Yes normal to inspection, No no pedal edema and No calf tenderness Psych Appearance: grossly normal Mental Status: mental status grossly normal Speech and movement: Normal speech and movement present Assessment & Plan Assessment & Plan (1) HOCM (hypertrophic obstructive cardiomyopathy): Code(s): I42.1 - Obstructive hypertrophic cardiomyopathy Category: Medical Plan: Hypertrophic obstructive cardiomyopathy with severe obstructive physiology as well as secondary changes with severe LVH. Risk of untreated obstructive cardiomyopathy with development of systolic dysfunction and/or congestive heart failure was discussed. I would discontinue lisinopril therapy and maximize his negative inotropic agent with carvedilol to 12.5 mg b.i.d. as well as continue verapamil therapy. I have advised him to follow with hypertrophic obstructive clinic and will refer him to [facility]. I think septal myectomy still a best option for him. He showed understanding and said he follow-up with [place] surgery but he said he is very anxious. Possibility of medical therapy with [facility] can be pursued through hypertrophic clinic. Continue negative inotropic agent with verapamil and carvedilol as above. Continue aggressive blood pressure control. Advised to call me with any worsening symptoms. Advise echocardiogram in near future to assess for any secondary changes to LV structure and function. Will follow up in the clinic in 6 months time. Orders: Orders CA echo transthoracic complete 11/02/23 I42.1 - Obstructive hypertrophic cardiomyopathy Medications: New carvedilol (Coreg) must administer with a meal/food 6.25 mg PO BID 60 tabs 5RF I42.1 - Obstructive hypertrophic cardiomyopathy Discontinued lisinopril does not need refill now Discontinued Reason: Doctor's Order 10 mg PO DAILY 30 tabs 3RF carvedilol must administer with a meal/food Discontinued Reason: Doctor's Order 3.125 mg PO BID 30 days 60 tabs 5RF Coding Level of Care Code Est Pt Level 4 (28955) Diagnoses HOCM (hypertrophic obstructive cardiomyopathy) I42.1
== END 2023-11-02 14:58 | disposition home or self-care (01) ==
PROVIDERS: PCP Internal Medicine; Visit Provider Internal Medicine Cardiovascular Disease
DX: I42.1 Obstructive hypertrophic cardiomyopathy (principal)
CPT/HCPCS: 99214

== ENCOUNTER → 2023-11-02 14:06 | Outpatient (BNVA) | payer OTHER, SELFPAY | PROVIDERS: PCP Internal Medicine; Visit Provider Internal Medicine Cardiovascular Disease | DX: I42.1 Obstructive hypertrophic cardiomyopathy (principal); Z98.890 Other specified postprocedural states | CPT/HCPCS: 99212 ==

== ENCOUNTER 2023-11-05 16:36 | Outpatient (REF) | payer OTHER, SELFPAY ==
[2023-11-05 18:09] LABS: Alanine Aminotransferase 102 U/L (0-40); Albumin Level 4.7 g/dL (3.5-5.0); Alkaline Phosphatase 73 U/L (39-117); Anion Gap 14 (12-20); Aspartate Amino Transferase 64 U/L (5-37); Bilirubin Total 0.9 mg/dL (0.0-1.0); Blood Urea Nitrogen 14 mg/dL (9-16); Calcium 10.1 mg/dL (8.4-10.2); Carbon Dioxide 30 mmol/L (22-29); Chloride 101 mmol/L (96-108); Cholesterol 164 mg/dL (<200); Estimated Glomerular Filt Rate > 60; Glucose Fasting 110 mg/dL (60-99); HDL Cholesterol 25 mg/dL (>40); LDL Cholesterol Calculated 102 mg/dL (<100); Potassium 3.7 mmol/L (3.3-5.1); Sodium 141 mmol/L (135-145); Total Protein 8.3 g/dL (6.5-8.0); Triglycerides 189 mg/dL (<150)
[2023-11-05 18:24] LABS: Microalbum/Creatinine Ratio Ur 27.8 ug/mg cr (<30)
[2023-11-05 18:24] LABS: Vitamin D 25-OH Total 46.4 ng/mL (>30)
[2023-11-11 15:24] LABS: NT-proBNP 262 pg/mL (<125)
== END 2023-11-05 16:37 | disposition home or self-care (01) ==
LOC: HO.LAB 16:36
PROVIDERS: PCP Internal Medicine; Visit Provider Internal Medicine
DX: I42.1 Obstructive hypertrophic cardiomyopathy (principal); E78.5 Hyperlipidemia, unspecified; E11.9 Type 2 diabetes mellitus without complications; E55.9 Vitamin D deficiency, unspecified
CPT/HCPCS: 36415; 80053; 80061; 82043; 82306; 82570; 83880

== ENCOUNTER 2023-11-14 19:25 | Emergency (ER) | payer OTHER, SELFPAY ==
--- NOTE | 2023-11-14 | ECG_ITS ---
Test Reason : CHEST PAIN Blood Pressure : / mmHG Vent. Rate : 090 BPM Atrial Rate : 090 BPM P-R Int : 158 ms QRS Dur : 100 ms QT Int : 366 ms P-R-T Axes : 044 -18 129 degrees QTc Int : 447 ms Normal sinus rhythm Left atrial enlargement Left ventricular hypertrophy ( [place] product ) ST & T wave abnormality, consider lateral ischemia Abnormal ECG When compared with ECG of 27-JAN-2023 14:46, Premature ventricular complexes are no longer Present Referred By: Generic ED Physician Electronically Signed By:HUBERT PACHECO MD
[2023-11-14 19:37] VITALS: BP 143/89; PULSE 94; RESP 18; TEMP 37; O2SAT 93; BMI 34.4
--- NOTE | 2023-11-14 19:56 | ED_ITS ---
HPI - Chest Pain General Chief Complaint: Chest Pain Stated Complaint: Chest pain and dizziness Time Seen by Provider: 11/14/23 19:55 History of Present Illness ED Provider: pacheco ROMAN narrative: Patient's history of sleep apnea not using his CPAP machine, HOCM awaiting for the myomectomy surgery with 10 -15 mm gradient across the LVOT increased to 70 during Valsalva maneuver had normal coronaries in cardiac catheterization 2079 does have recurrent palpitation episodes with chest pain this time comes here pain in palpitation for last 5 days has previous Holter monitoring in the past feel dizzy no syncope episode on carvedilol and verapamil patient is very anxious has poor sleep pain is during palpitation only Related Data Previous Rx's ?Medication ?Instructions ?Recorded miscellaneous medical supply 2 ea miscellaneous DAILY DX: E11.9 06/01/21 90 days #2 ea lancets 28 gauge (FreeStyle #100 ea 11/09/22 Lancets) Ventolin HFA 90 mcg/actuation 2 puff inhalation Q6H PRN 01/28/23 aerosol inhaler (albuterol sulfate) shortness of breath or wheezing 30 days #8 grams acetaminophen 500 mg capsule 500 mg PO TID PRN pain #30 caps 06/08/23 verapamil 240 mg 24 hr 240 mg PO BID #180 caps 07/05/23 capsule,extended release diabetic shoes with inserts #1 ea 07/14/23 clotrimazole-betamethasone 1 1 appl topical BID 2 weeks #15 08/13/23 %-0.05 % topical cream grams blood sugar diagnostic (FreeStyle #100 ea 09/30/23 Test strips) empagliflozin 25 mg tablet 25 mg PO DAILY 90 days #90 tabs 10/28/23 (Jardiance) metformin 1,000 mg tablet 1,000 mg PO BID 90 days #180 tabs 11/01/23 carvedilol 6.25 mg tablet (Coreg) 6.25 mg PO BID #60 tabs 11/02/23 atorvastatin 10 mg tablet 10 mg PO BEDTIME 90 days #90 tabs 11/06/23 lorazepam 1 mg tablet (Ativan) 1 mg PO BEDTIME PRN anxiety/sleep 11/14/23 #10 tabs Allergies Allergy/AdvReac Type Severity Reaction Status Date / Time Contrast Dye Allergy Intermediate Hives Verified 11/14/23 19:43 Iodinated Contrast Media Allergy Mild HIVES Verified 11/14/23 19:43 [IV CONTRAST] Review of Systems 2 Review of Systems: Yes all other systems are reviewed and are negative [facility] Past Medical History Medical History Hepatic steatosis Personal history of nicotine dependence Lumbar degenerative disc disease HOCM (hypertrophic obstructive cardiomyopathy) Anxiety and depression Diabetes mellitus Hypertrophic cardiomyopathy Hyperlipidemia Hypertension Surgical History History of carpal tunnel surgery History of right inguinal hernia repair History of cardiac cath Family History Family History Paternal Grandfather Heart disease Skin cancer Maternal Grandmother Skin cancer Maternal Grandfather Prostate cancer Father Prostate cancer Mother Diabetes Skin cancer Social History Social History Housing: Apartment Alcohol intake: former Patient Tobacco Use Status: Former Tobacco user Tobacco use type: Cigarette Years Smoked: (Former smoker - onset 7yo, 3-4ppd x 3years - 60+PYH - quit 2011) Smoked in Last 30 Days: No e-Cigarette/Vaping Use: Never Used Second Hand Smoke Exposure: No Use of substances other than those prescribed or required for medical reasons: No Advance Directives: No Advance Directives Information Provided: No service: No Current occupational status: employed Current occupational exposures/hazards: No Cognitive needs: No Hearing needs: No Vision needs: No Physical Exam 2 Vital Signs: Vital Signs: Last Vital Signs Temp 98.8 F 11/14/23 22:52 Pulse 76 11/14/23 22:52 Resp 17 11/14/23 22:52 BP 133/90 H 11/14/23 22:52 Pulse Ox 96 11/14/23 22:52 O2 Del Method Room Air 11/14/23 22:52 BMI result Body Mass Index 34.4 Appearance: Alert. Oriented X3. No acute distress. Anxious Eyes: No pallor or icterus ENT: Pharynx normal. Oral Mucosa moist Neck: Normal inspection. Neck supple. CVS: Normal heart rate and rhythm. Pulses normal. Pansystolic murmur at base which increases on standing Respiratory: No respiratory distress. Equal air entry bilateral, no wheezing/rales/rhonchi Abdomen: Soft and nontender. Bowel sounds are present, no mass palpable, no CVA tenderness Skin: Skin warm and dry. Normal skin color. Normal skin turgor. Extremities: No lower extremity edema. No calf tenderness Neuro: Oriented X 3. No motor deficit. Medical Decision Making Medical Decision Making [facility] Narrative: Patient's HOCM with anxiety with palpitation episode with chest pain with previous workup without any significant arrhythmias accept tachycardic plan for surgery in [place] next few months does have sleep apnea not using CPAP machine plan to have CPAP machine soon after steady workup for the chest pain negative for acute coronary syndrome. 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 11/14/23 19:51 11/14/23 19:51 Labs: Lab Results 11/14/23 11/14/23 Range/Units 19:51 21:17 WBC 8.6 (4.8-10.8) X10*3/uL RBC 5.42 (4.60-5.80) X10*6/uL Hgb 15.6 (14.0-18.0) g/dl Hct 44.3 (42.0-52.0) % MCV 81.7 (80.0-98.0) fL MCH 28.8 (27.0-33.0) pg MCHC 35.2 (31.0-36.0) g/dl RDW 13.3 (11.0-16.0) % Plt Count 160 (160-400) X10*3/uL MPV 9.9 (9.4-12.4) fL Immature Gran % (Auto) 0.3 (0.0-0.4) % Neut % (Auto) 68.0 (45-73) % Lymph % (Auto) 23.9 (20-40) % Randolph % (Auto) 5.7 (2-11) % Eos % (Auto) 1.4 (0-4) % Baso % (Auto) 0.7 (0-2) % Lymph # (Auto) 2.1 (1.2-4.9) X10*3/uL Randolph # (Auto) 0.5 (0.1-1.2) X10*3/uL Eos # (Auto) 0.1 (0.0-0.4) X10*3/uL Baso # (Auto) 0.1 (0.0-0.2) X10*3/uL Abs Immat Gran (auto) 0.03 (0.00-0.03) X10*3/uL Absolute Neuts (auto) 5.9 (2.0-8.3) x10*3/uL Absolute Nucleated RBC 0.000 (0.0-0.012) X10*3/uL Nucleated RBC % (auto) 0.0 (0.0-0.2) /100WBC Sodium 142 (135-145) mmol/L Potassium 3.8 (3.3-5.1) mmol/L Chloride 102 (96-108) mmol/L Carbon Dioxide 30 H (22-29) mmol/L Anion Gap 14 (12-20) BUN 13 (9-16) mg/dL Creatinine 1.04 (0.5-1.4) mg/dL Estim Creat Clear Calc 105.7 Estimated GFR > 60 Random Glucose 197 H (60-115) mg/dL Calcium 10.2 (8.4-10.2) mg/dL Total Bilirubin 0.6 (0.0-1.0) mg/dL AST 56 H (5-37) U/L ALT 95 H (0-40) U/L Alkaline Phosphatase 73 (39-117) U/L Troponin I High Sens 25.2 26.5 (<3.5-35.0) ng/L Total Protein 8.2 H (6.5-8.0) g/dL Albumin 4.6 (3.5-5.0) g/dL Independent Interpretation I performed an independent interpretation of an: EKG Interpretation: Normal sinus rhythm heart rate 90 beats per minute LVH nonspecific ST T wave changes no acute ST elevation Critical Care Time Critical Care Time Critical Care Time: Yes Total Critical Care Time: 40 Attestation: The patient was critically ill with a high probability of imminent or life threatening deterioration. I spent greater than 45 ???minutes of discontinuous time evaluating the patient,delivering critical care at the bedside, discussing and evaluating pertinent data with consultants. Critical care time does not include time spent performing separately billable procedures or teaching. Total time spent performing critical care was 40???minutes. 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 repairer for further management Prescriptions: New lorazepam [Ativan] 1 mg tablet 1 mg PO BEDTIME PRN (Reason: anxiety/sleep) Qty: 10 0RF No Action miscellaneous medical supply Kit 2 ea miscellaneous DAILY 90 Days Qty: 2 1RF Rx Instructions: DIABETIC SHOES size 11 (DME) lancets [FreeStyle Lancets] 28 gauge misc See Rx Instructions .Route Qty: 100 6RF Rx Instructions: Use 1 lancet TID albuterol sulfate [Ventolin HFA] 90 mcg/actuation HFA aerosol inhaler 2 puff inhalation Q6H PRN (Reason: shortness of breath or wheezing) 30 Days Qty: 8 1RF acetaminophen 500 mg capsule 500 mg PO TID PRN (Reason: pain) Qty: 30 0RF verapamil 240 mg capsule,ext rel. pellets 24 hr 240 mg PO BID Qty: 180 3RF clotrimazole-betamethasone 1-0.05 % cream 1 appl topical BID 14 Days Qty: 15 0RF (DME) FreeStyle Test Strip See Rx Instructions .ROUTE .MEDSUPPLY Qty: 100 11RF Rx Instructions: Use 1 test strip three times a day metformin 1,000 mg tablet 1,000 mg PO BID 90 Days Qty: 180 1RF atorvastatin 10 mg tablet 10 mg PO BEDTIME 90 Days Qty: 90 1RF Jardiance 25 mg tablet 25 mg PO DAILY 90 Days Qty: 90 1RF (DME) diabetic shoes with inserts 11 See Rx Instructions .Route .MEDSUPPLY Qty: 1 0RF Rx Instructions: As directed carvedilol [Coreg] 6.25 mg tablet 6.25 mg PO BID Qty: 60 5RF Rx Instructions: must administer with a meal/food Interventions: ED Discharge Assessment Last Done: 11/14/23 22:52 Discharge Date/Time: 11/14/23 22:53 Print Language: Faroese
[2023-11-14 19:59] LABS: MANUAL DIFF FLAG NO
[2023-11-14 20:00] LABS: Basophils Absolute Auto 0.1 X10*3/uL (0.0-0.2); Basophils Percent Auto 0.7 % (0-2); Eosinophils Absolute Auto 0.1 X10*3/uL (0.0-0.4); Eosinophils Percent Auto 1.4 % (0-4); Hematocrit 44.3 % (42.0-52.0); Hemoglobin 15.6 g/dl (14.0-18.0); Imm Gran Abs Auto 0.03 X10*3/uL (0.00-0.03); Imm Gran Pct Auto 0.3 % (0.0-0.4); Lymphocytes Absolute Auto 2.1 X10*3/uL (1.2-4.9); Lymphocytes Percent Auto 23.9 % (20-40); Mean Corpuscular HGB Conc 35.2 g/dl (31.0-36.0); Mean Corpuscular Hemoglobin 28.8 pg (27.0-33.0); Mean Corpuscular Volume 81.7 fL (80.0-98.0); Mean Platelet Volume 9.9 fL (9.4-12.4); Monocytes Absolute Auto 0.5 X10*3/uL (0.1-1.2); Monocytes Percent Auto 5.7 % (2-11); Neutrophils Absolute Auto 5.9 x10*3/uL (2.0-8.3); Platelet Count 160 X10*3/uL (160-400); Red Blood Count 5.42 X10*6/uL (4.60-5.80); Red Cell Distribution Width 13.3 % (11.0-16.0); White Blood Count 8.6 X10*3/uL (4.8-10.8)
[2023-11-14 20:15] LABS: Alanine Aminotransferase 95 U/L (0-40); Albumin Level 4.6 g/dL (3.5-5.0); Alkaline Phosphatase 73 U/L (39-117); Anion Gap 14 (12-20); Aspartate Amino Transferase 56 U/L (5-37); Bilirubin Total 0.6 mg/dL (0.0-1.0); Blood Urea Nitrogen 13 mg/dL (9-16); Calcium 10.2 mg/dL (8.4-10.2); Carbon Dioxide 30 mmol/L (22-29); Chloride 102 mmol/L (96-108); Creatinine Clr Calc Pharmacy 105.7; Estimated Glomerular Filt Rate > 60; Glucose Random 197 mg/dL (60-115); Potassium 3.8 mmol/L (3.3-5.1); Sodium 142 mmol/L (135-145); Total Protein 8.2 g/dL (6.5-8.0)
[2023-11-14 20:23] LABS: Troponin-I High Sensitivity 25.2 ng/L (<3.5-35.0)
[2023-11-14 21:13] VITALS: PULSE 83
[2023-11-14 21:45] LABS: Troponin-I High Sensitivity 26.5 ng/L (<3.5-35.0)
[2023-11-14 22:39] VITALS: BP 133/90; PULSE 76; RESP 17; TEMP 37.1; O2SAT 96
[2023-11-14 22:52] VITALS: BP 133/90; PULSE 76; RESP 17; TEMP 37.1; O2SAT 96
== END 2023-11-14 22:53 | disposition home or self-care (01) ==
PROVIDERS: Emergency Provider Internal Medicine; PCP Internal Medicine
DX: R00.2 Palpitations (principal); F41.9 Anxiety disorder, unspecified; I10 Essential (primary) hypertension; E11.9 Type 2 diabetes mellitus without complications; I42.1 Obstructive hypertrophic cardiomyopathy
CPT/HCPCS: 36415; 80053; 84484; 85025; 93005; 99283; 99285

== ENCOUNTER → 2023-11-14 19:25 | Outpatient (BNV) | payer OTHER, SELFPAY | PROVIDERS: Emergency Provider Internal Medicine; PCP Internal Medicine; Visit Provider Internal Medicine Cardiovascular Disease | DX: R94.31 Abnormal electrocardiogram [ECG] [EKG] (principal) | CPT/HCPCS: 93010 ==

== ENCOUNTER → 2023-11-24 14:35 | Outpatient (REF) | payer OTHER, SELFPAY ==
--- NOTE | 2023-11-24 14:38 | CA_ITS ---
Transthoracic Echocardiogram Patient (Last, First, Middle): Jefe Huddleston, Gender: Male Date of : 1970 Age: 53 Procedure Date: 11/24/2023 Procedure Type: Transthoracic Echocardiogram Location: OP Height: 180.34 cm Weight: 113.4 kg BSA: 2.32 m2 Heart Rate: bpm BP: 124 / 76 mmHg Assistant To The Director: KULWINDER Referring MD: Donato Davila MD Symptoms: I42.1 - Obstructive hypertrophic cardiomyopathy Study Quality: Adequate ECG Rhythm: Sinus Conclusions: - The left ventricular systolic function is hyperdynamic. The visually estimated ejection fraction is >70%. - There is severely increased left ventricular wall thickness. There is severe septal asymmetric hypertrophy. Septal thickness 2cm. Posterior wall 1.4cm. - Resting LVOT gradient 144 mm Hg. With Valsalva 166mmHg. - No obvious valvular pathology seen on this study. Findings Left Ventricle Normal left ventricular cavity size. There is severely increased left ventricular wall thickness. The left ventricular systolic function is hyperdynamic. The visually estimated ejection fraction is >70%. There is no evidence of regional wall motion abnormalities. Evidence suggests grade I (mild) diastolic dysfunction. There is severe septal asymmetric hypertrophy. Septal thickness 2cm. Posterior wall 1.4cm. Resting LVOT gradient 144 mm Hg. With Valsalva 166mmHg. LV peak GLS -16.8%. Right Ventricle Normal right ventricular cavity size and systolic function. Atria The left atrium is moderately dilated. The right atrium is normal in size. Aortic Valve There is a normal trileaflet aortic valve. There is mild calcification of the aortic valve. There is no aortic valve stenosis. There is trace (trivial) aortic valve regurgitation. Mitral Valve The mitral valve appears normal. There is trace mitral valve regurgitation. There is no mitral valve stenosis. Pulmonic Valve The pulmonic valve is likely normal. Tricuspid Valve There is trace tricuspid valve regurgitation. There is no evidence of pulmonary hypertension. Great Vessels The asc aorta is normal in size. Venous The inferior vena cava is normal in size and collapses greater than 50% with inspiration. Pericardium/Pleural There is no evidence of pericardial effusion. Prior Study Comparison No significant change compared to prior study dated: 08/25/2022. Recommendations, Care & Conclusions No obvious valvular pathology seen on this study. Measurements 2D Linear Measurements IVSd: 2.07 0.6-0.9/0.6-1.0 cm LVIDd: 4.46 3.9-5.3/4.2-5.9 cm LVIDd Index: 1.92 2.4-3.2/2.2-3.1 cm/m2 LVIDs: 2.41 2.0-3.6 cm LVPWd: 1.45 0.7-1.1 cm LA Diam: 4.90 2.7-3.8/3.0-4.0 cm LAIDs Index: 2.11 1.5-2.3 cm/m2 LV Mass: 436.23 67-162/88-224 g LV Mass Index: 188.03 43-95/49-115 g/m2 LVOT Diam: 2.10 3.0+(-)1.3 cm Mitral Valve MV Pk E: 0.92 MV PK A: 1.09 MV Decel Time: 246.00 E/A: 0.80 E'Lateral: 8.49 E'Medial: 4.24 E/E' Med: 21.60 E/E' Lat: 10.80 PHT: 72.00 MVA PHT: 3.06 Decel [place]: 3.73 Aortic Valve AoV Pk [place]: 3.80 AoV Mn [place]: 2.46 AoV VTI: 0.72 AoV Pk Grad: 58.00 Aov Mn Grad: 28.00 PATSY Cont.VTI: 2.95 LVOT LVOT Pk [place]: 3.26 LVOT Mn [place]: 1.98 LVOT VTI: 0.62 LVOT Pk Grad: 43.00 LVOT Mn Grad: 19.00 LVOT Diam: 2.10 LVOT Area: 3.46 Diastolic Function MV Pk E: 0.92 MV Pk A: 1.09 E/A: 0.80 E'Medial: 4.24 E/E' Med: 21.60 E' Laterial: 8.49 E/E' Lat: 10.80 Right Ventricle TAPSE (mm): 19.40 TVS' [place]: 14.90 Tricuspid Valve TR Pk [place]: 1.87 TR Pk Grad: 14.00 RA Press: 3.00 RVSP: 17.00 Great Vessels Aorta Sinus of Valsalva: 3.91 2.0-3.[address] [place]: 3.34 1.7-3.4 cm Ao Asc: 3.70 2.1-3.4 cm Updated in Other Vendor System with Status of Final Cali Mueller MD electronically signed on 11/27/2023 11:51:46 AM with status of Final
== END ==
LOC: HO.CARD 14:35
PROVIDERS: PCP Internal Medicine; Visit Provider Internal Medicine Cardiovascular Disease
DX: I42.1 Obstructive hypertrophic cardiomyopathy (principal)
CPT/HCPCS: 93306; 93356

== ENCOUNTER → 2023-11-24 14:38 | Outpatient (BNV) | payer OTHER, SELFPAY | PROVIDERS: PCP Internal Medicine; Visit Provider Internal Medicine | DX: I42.1 Obstructive hypertrophic cardiomyopathy (principal) | CPT/HCPCS: 93306; 93356 ==

== ENCOUNTER 2024-01-21 13:06 | Outpatient (AMB) | payer OTHER, SELFPAY ==
--- NOTE | 2024-01-21 13:07 | A.OFFVIS_ITS ---
Vital Signs 01/21/24 13:08 Height 5 ft 11 in Weight 238 lb 1.588 oz BMI 33.2 BP 138/84 Blood Pressure Location Lt brachial Position Sitting Pulse 77 Intake Visit Reasons: abdominal pains Intake Note: Jefe presents in the office as a follow up for abdominals pains. CC: He states that he is having pains in his epigastric region. He also states he has pains where his liver is in his abdomen. No irregular bowel movements. Junior Sales Assistant Required: Yes Junior Sales Assistant Name: [id number] Allergies Contrast Dye Allergy (Intermediate, Verified 01/21/24 13:33) Hives Iodinated Contrast Media [IV CONTRAST] Allergy (Mild, Verified 01/21/24 13:33) HIVES HPI Comments Details: This is a 52y.o M with PMH of HOCM, morbid obesity, t2dm, who has been referred to our office for elevated LFTs. 03/03/23: Pt has had elevated transaminases with ALT>AST since at least 2018. Has been told its from fatty liver in the past based on imaging and minimal etOH intake hx. However he is unsure what prompted the more recent referral. Has may be 1-2 drinks a year. Reports previous hx of smoking but has quit. 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 No fam hx of liver disease including liver cancer. Previous imaging in 2018 has shown hepatic steatosis. Of note that CT also showed a > 3cm adrenal lesion on the left side but pt is unable to recall that finding or if that was evaluated further. More recently had US elastography ordered by his PCP on 02/26 but results still pending. Fib-4 2.70 i.e suggestive of advanced fibrosis. For his severe HOCM, he tells me he has been seeing Cardiology and is also undercare of [facility] and has been advised what sounds to be septal my ectomy based on his description. He is not sure when his next follow up/surgery is. LVOT grad 165mmHg based on echo 08/2022!! 03/24/23: Seen with live paramedic instructor Here for follow up after work up for elevated LFTs as well as to discuss timing of colonoscopy. Currently apart from intermittent R sided discomfort does not have any GI issues. Labs reviewed and no evidence of AIH, iron overload, wilsons, A1At, celiac etc. Reports surgery may be early next year but does not recall if it has actually been scheduled. Was also seen by endocrine in Dec for adrenal lesion, which he did not remember. Also appears that did not remember to follow up with them as was asked to return in 6 weeks. 01/11/24: Here for follow up. Reviewed cardiology notes. Appears to have been referred to [facility] now as per his preference. Here today for abdominal pain. Was under the impression that hes undergoing an EGD today. Reports significant RUQ pain and pressure which is assoc with bloating and nausea. Starts within 30 mins of eating. This is despite cutting down on fatty food. [facility] Medical History Hepatic steatosis Personal history of nicotine dependence Lumbar degenerative disc disease HOCM (hypertrophic obstructive cardiomyopathy) Anxiety and depression Diabetes mellitus Hypertrophic cardiomyopathy Hyperlipidemia Hypertension Surgical History History of carpal tunnel surgery History of right inguinal hernia repair History of cardiac cath Family History Paternal Grandfather Heart disease Skin cancer Maternal Grandmother Skin cancer Maternal Grandfather Prostate cancer Father Prostate cancer Mother Diabetes Skin cancer Social History Housing: Apartment Alcohol intake: former Patient Tobacco Use Status: Former Tobacco user Tobacco use type: Cigarette Years Smoked: (Former smoker - onset 7yo, 3-4ppd x 3years - 60+PYH - quit 2011) e-Cigarette/Vaping Use: Never Used Second Hand Smoke Exposure: No service: No Current occupational status: employed Current occupational exposures/hazards: No Cognitive needs: No Hearing needs: No Vision needs: No Review of Systems Const All systems reviewed & are unremarkable except as noted in HPI and below Physical Exam Vital Signs: Last Vital Signs Pulse 77 01/21/24 13:08 BP 138/84 01/21/24 13:08 BMI result Body Mass Index 33.2 No apparent distress, with obesity Nonicteric Abdomen soft, nondistended, palpable liver edge Alert and oriented x3, normal gait Assessment & Plan Assessment & Plan (1) Postprandial abdominal pain in right upper quadrant: Code(s): R10.11 - Right upper quadrant pain Category: Medical (2) Epigastric pain: Code(s): R10.13 - Epigastric pain Category: Medical (3) HOCM (hypertrophic obstructive cardiomyopathy): Code(s): I42.1 - Obstructive hypertrophic cardiomyopathy Category: Medical Plan Ddx include symptomatic cholelithiasis, gastritis, PUD. Again, reviewed in detail with the patient that ongoing severe HOCM precludes safe upper endoscopy for elective reasons. Upper GI series from last year reassuring. Plan: -omeprazole 20 mg once daily prescribed empirically for gastritis/PUD -ultrasound abdomen -follow-up in 2 months. Patient reminded to jot down the name of his cardiac surgeon that he will see in a month, so that we can later obtain records. Orders: Orders US abdomen complete Today R10.11 - Right upper quadrant pain Medications: New omeprazole 20 mg PO DAILY 90 caps 1RF Changed From atorvastatin 10 mg PO BEDTIME 90 days 90 tabs 1RF E78.5 - Hyperlipidemia, unspecified To atorvastatin 25 mg (2.5 x 10 mg) PO BEDTIME 225 tabs 1RF 90 days E78.5 - Hyperlipidemia, unspecified Coding Level of Care Code Est Pt Level 4 (42147) Diagnoses Postprandial abdominal pain in right upper quadrant R10.11 Epigastric pain R10.13 HOCM (hypertrophic obstructive cardiomyopathy) I42.1
[2024-01-21 13:08] VITALS: BP 138/84; PULSE 77; BMI 33.2
== END 2024-01-21 14:26 | disposition home or self-care (01) ==
PROVIDERS: PCP Internal Medicine; Visit Provider Internal Medicine
DX: R10.11 Right upper quadrant pain (principal); R10.13 Epigastric pain; I42.1 Obstructive hypertrophic cardiomyopathy
CPT/HCPCS: 99214

== ENCOUNTER → 2024-01-21 13:06 | Outpatient (BNVA) | payer OTHER, SELFPAY | PROVIDERS: PCP Internal Medicine; Visit Provider Internal Medicine | DX: R10.11 Right upper quadrant pain (principal); R10.13 Epigastric pain; I42.1 Obstructive hypertrophic cardiomyopathy; E78.5 Hyperlipidemia, unspecified | CPT/HCPCS: 99212 ==

== ENCOUNTER 2024-02-04 08:01 | Outpatient (REF) | payer OTHER, SELFPAY ==
--- NOTE | ~2024-02-04 | US_ITS ---
EXAMINATION: US ABDOMEN COMPLETE CLINICAL INFORMATION: Right upper quadrant pain. COMPARISON: Ultrasound abdomen complete 02/26/2023 and 03/31/2016. MRI abdomen 05/09/2018. CT abdomen 10/28/2016. TECHNIQUE: Real-time imaging of the abdominal viscera. FINDINGS: PANCREAS: The visualized portions of the pancreas are unremarkable but a large portion of the gland is obscured by bowel gas. ABDOMINAL AORTA: The proximal, mid, and distal segments are normal in caliber. INFERIOR VENA CAVA: Visualized portions are normal. LIVER: The liver is normal in size. The liver contour is normal. There is diffuse increased liver parenchymal echogenicity, consistent with hepatic steatosis. No focal hepatic lesion. There is no intrahepatic biliary duct dilatation seen. GALLBLADDER: Normal. The gallbladder is physiologically distended without evidence of stones, sludge, polyps, wall thickening or pericholecystic fluid. COMMON BILE DUCT: Normal in caliber measuring 0.2 cm in diameter. RIGHT KIDNEY: A benign 0.5 cm Bosniak class I renal cyst is noted which requires no additional imaging or follow up. No solid renal masses are seen. No hydronephrosis or renal calculi. The kidney measures 11.9 cm in maximum dimension. LEFT KIDNEY: Normal. No hydronephrosis. No renal calculi or focal parenchymal lesions. The kidney measures 11.3 cm in maximum dimension. SPLEEN: The spleen is enlarged at 15.3 cm in maximum dimension. FREE FLUID: None. ADDITIONAL FINDINGS: Again seen is a cyst in the left adrenal gland measuring 2.8 x 2.0 x 1.6 cm. This finding has been seen in the past (see MRI of 05/09/2018). US/US abdomen complete IMPRESSION: A cause for the patient's right upper quadrant pain has not been found. Incidental note made of hepatic steatosis, splenomegaly and stable appearing left adrenal cyst. Electronically signed by: Matthieu Mathew MD 02/09/2024 03:09 PM EDT
== END 2024-02-04 08:02 | disposition home or self-care (01) ==
LOC: HO.US 08:01
PROVIDERS: PCP Internal Medicine; Visit Provider Internal Medicine
DX: R10.11 Right upper quadrant pain (principal)
CPT/HCPCS: 76700

== ENCOUNTER 2024-08-07 10:01 | Outpatient (AMB) | payer OTHER, SELFPAY ==
--- NOTE | 2024-08-07 10:04 | MHC.PC.OV ---
Vital Signs 08/07/24 10:09 Height 5 ft 11 in Weight 236 lb BMI 32.9 BP 178/90 H Blood Pressure Location Lt brachial Position Sitting Intake Visit Reasons: 4 Month F/U Intake Note: Patient here for a 4 month follow up, c/o left arm pain, low back pain Outside Collector Required: Yes Outside Collector Language: System Archive Analyst Name: Maricarmen Medel MD Information Interpreted: non-clinical & clinical Accompanied by: Self / Same As Patient Allergies Contrast Dye Allergy (Intermediate, Verified 08/07/24 10:21) Hives Iodinated Contrast Media [IV CONTRAST] Allergy (Mild, Verified 08/07/24 10:21) HIVES Medication List - Last Reconciled 08/07/24 by Maricarmen Medel MD acetaminophen 500 mg PO TID PRN atorvastatin 20 mg PO BEDTIME 90 days blood sugar diagnostic (FreeStyle Test strips) Use 1 test strip three times a day cane As directed carvedilol (Coreg) 6.25 mg PO BID clotrimazole-betamethasone 1-0.05 % 1 appl topical BID 2 weeks [diabetic shoes with inserts As directed] empagliflozin (Jardiance) 25 mg PO DAILY 90 days lancets (FreeStyle Lancets) Use 1 lancet TID lorazepam (Ativan) 1 mg PO BEDTIME PRN metformin 1,000 mg PO BID 90 days miscellaneous medical supply 2 ea miscellaneous DAILY 90 days omeprazole 20 mg PO DAILY Ventolin HFA 90 mcg/actuation (albuterol sulfate) 2 puffs inhalation Q6H PRN 30 days NS verapamil ER 240 mg PO BID Tobacco use date assessed: 08/07/24 Dental Screening Dental Screen Date: 08/07/24 Did you have a dental visit in the last 12 months?: Yes Did you have a dental problem in the last 6 months where you did not have access to dental care?: No Was dental information given to patient?: Patient has dentist HPI HPI Comments History of Present Illness Details The patient is a 54-year-old male presenting for follow-up of chronic conditions, including essential hypertension and type 2 diabetes mellitus. His blood pressure is substantially elevated today at 178/90 mmHg. The patient has a history of an adrenal cyst, which remains stable, as well as congestive heart failure with recent echocardiogram findings of increased left ventricular wall thickness and an ejection fraction over 70%. He denies symptoms of distress such as chest pain, shortness of breath, or leg swelling related to heart failure. His diabetes management shows positive control with an A1c of 6.3%. He is on several medications for his chronic conditions, and there were concerns of nonadherence with verapamil. Patient complains of left arm pain that started about 2 months ago with venous engorgement. Will order ultrasound to be done today to rule out DVT. [facility] Medical History (Updated 08/07/24 @ 10:29 by Maricarmen Medel MD) Hepatic steatosis Personal history of nicotine dependence Lumbar degenerative disc disease HOCM (hypertrophic obstructive cardiomyopathy) Anxiety and depression Diabetes mellitus Hypertrophic cardiomyopathy Hyperlipidemia Hypertension Surgical History History of carpal tunnel surgery History of right inguinal hernia repair History of cardiac cath Family History Paternal Grandfather Heart disease Skin cancer Maternal Grandmother Skin cancer Maternal Grandfather Prostate cancer Father Prostate cancer Mother Diabetes Skin cancer Social History Housing: Apartment Alcohol intake: former Patient Tobacco Use Status: Former Tobacco user Tobacco use type: Cigarette Years Smoked: (Former smoker - onset 7yo, 3-4ppd x 3years - 60+PY - quit 2011) e-Cigarette/Vaping Use: Never Used Second Hand Smoke Exposure: No service: No Current occupational status: employed Current occupational exposures/hazards: No Cognitive needs: No Hearing needs: No Vision needs: No Questionnaire PHQ-9 Over the last 2 weeks, how often have you been bothered by any of the following problems? 1. Little interest or pleasure in doing things: not at all 2. Feeling down, depressed, or hopeless: several days 3. Trouble falling or staying asleep, or sleeping too much: not at all 4. Feeling tired or having little energy: not at all 5. Poor appetite or overeating: not at all 6. Feeling bad about yourself - or that you are a failure or have let yourself or your family down: not at all 7. Trouble concentrating on things, such as reading the newspaper or watching television: not at all 8. Moving or speaking so slowly that other people could have noticed. Or the opposite - being so fidgety or restless that you have been moving around a lot more than usual: not at all 9. Thoughts that you would be better off or of hurting yourself in some way: not at all Total score: 1 Depression Screening Interpretation: Negative Depression Screening Done: Yes 52848 - PHQ-9 Billing: Yes Source: Developed by Drs. Lucio Ralph, Joan Villarreal, Mayo Armendariz and colleagues, with an educational kaylee from [employer]. Thrive Questionnaire Date Thrive assessed: 08/07/24 I am a: Patient What is your living situation today?: I have a steady place to live Within the past 12 months, did the food you bought not last and you didn't have the money to get more?: Never true Within the past 12 months, did you worry whether your food would run out before you got money to buy more?: Never true Do you have trouble paying for medicines?: No Do you have trouble getting transportation to medical appointments?: No Do you have trouble paying your heating and electricity bill?: No Do you have trouble taking care of your child, family member or friend?: No Do you have trouble with day-to-day activities such as bathing, preparing meals, shopping, managing finances, etc.?: No Are you currently unemployed and looking for a job?: No Are you interested in more education?: No Please select the resources that you would like help with: None Currently or been in a relationship where the following occur: No concerns reported THRIVE Score: 0 AUDIT C Alcohol Use Questionnaire (AUDIT-C) 1. How often do you have a drink containing alcohol?: Never Total Score: 0 MARYANN-7 AMB Questionnaire MARYANN-7 Date MARYANN - 7 assessed: 08/07/24 Feeling nervous, anxious, or on edge: 1 = Several days Not being able to stop or control worryin = Not at all Worrying too much about different things: 1 = Several days Trouble relaxin = Not at all Being so restless that it is hard to sit still: 0 = Not at all Becoming easily annoyed or irritable: 1 = Several days Feeling afraid as if something awful might happen: 0 = Not at all Total MARYANN-7 score (0-4 normal; 5-9 mild; 10-14 moderate; 15-21 severe): 3 Source: Developed by Drs. Lucio Ralph, Joan Villarreal, Mayo Armendariz and colleagues, with an educational kaylee from [employer]. MARYANN-7 Assessment Billing MARYANN-7 Assessment Tool: MARYANN-7 Assessment 37932 Review of Systems Const All systems reviewed & are unremarkable except as noted in HPI and below Card Denies chest pain at rest, Denies chest pain with activity, Denies edema, Denies irregular heart rhythm, Denies claudication, Denies dyspnea, Denies dyspnea on exertion, Denies orthopnea, Denies paroxysmal nocturnal dyspnea and Denies slow heart rate Resp Denies cough, Denies dyspnea and Denies dyspnea on exertion GI Denies abdominal pain, Denies change in bowel habits, Denies excessive flatus, Denies nausea and Denies vomiting Physical exam (Primary Care) Vital Signs: Last Vital Signs BP 178/90 H 08/07/24 10:09 BMI result Body Mass Index 32.9 BMI Assessment/Plan discussion: High BMI High, discussed plan: lifestyle, weight reduction, dietary and physical activity Tobacco/Smoking Status: Tobacco use Status Tobacco use date assessed 08/07/24 08/07/24 10:12 Patient Tobacco Use Status Former Tobacco user 08/07/24 10:06 Tobacco use type Cigarette 08/07/24 10:06 e-Cigarette/Vaping Use Never Used 08/07/24 10:06 PHQ-9: PHQ-9 Score PHQ-9: Total score 1 08/07/24 10:24 Depression Screening Interpretation: Negative Thrive Assessment: Date of Thrive Assessment Date Thrive assessed 08/07/24 08/07/24 10:06 Currently or been in a relationship where the following occur: No concerns reported Resp Effort & Inspection: normal respiratory effort Auscultation: clear to auscultation bilaterally Cardio Jugular venous distension: no JVD Rate: regular rate Rhythm: regular rhythm Heart sounds: S1 normal heart sound present and S2 normal heart sound present Extrem General: Yes full ROM Results AMB Hemoglobin A1c AMB Hemoglobin A1c 6.3 % Last Edit by JENA Lopez on 08/07/24 10:25 Results Reviewed Results Reviewed: Laboratory Last Values Hgb A1c (Clinic) 6.3 % (4.0-6.0) H 08/07/24 10:04 Coding Level of Care Code Est Pt Level 4 (47313) Complex EM visit Add On G2211 Diagnoses Left arm pain M79.602 Hyperlipidemia LDL goal <70 E78.5 HOCM (hypertrophic obstructive cardiomyopathy) I42.1 Type 2 diabetes mellitus without complication, without long-term current use of insulin E11.9 Diabetes mellitus type: type 2 Diabetes mellitus long term acute care registered nurse insulin use: without long term acute care registered nurse use Diabetes mellitus complication status: without complication Hypertension, unspecified type I10 Hypertension type: unspecified Adrenal mass E27.8 Additional Codes MARYANN-7 Assessment Billing - MARYANN-7 Assessment Tool: MARYANN-7 Assessment 14705 ([id number]) PHQ-9 - 33044 - PHQ-9 Billing: Yes ([id number]) Time Spent (min) 21 Assessment & Plan Assessment & Plan (1) Left arm pain: Code(s): M79.602 - Pain in left arm Category: Medical (2) Hyperlipidemia LDL goal <70: Code(s): E78.5 - Hyperlipidemia, unspecified Category: Medical (3) HOCM (hypertrophic obstructive cardiomyopathy): Code(s): I42.1 - Obstructive hypertrophic cardiomyopathy Category: Medical (4) Diabetes mellitus: Code(s): E11.9 - Type 2 diabetes mellitus without complications Category: Medical Qualifiers: Diabetes mellitus type: type 2 Diabetes mellitus long term acute care registered nurse insulin use: without long term acute care registered nurse use Diabetes mellitus complication status: without complication Qualified Code(s): E11.9 - Type 2 diabetes mellitus without complications (5) Hypertension: Code(s): I10 - Essential (primary) hypertension Category: Medical Qualifiers: Hypertension type: unspecified Qualified Code(s): I10 - Essential (primary) hypertension (6) Adrenal mass: Code(s): E27.8 - Other specified disorders of adrenal gland Category: Medical Plan The patient should maintain his current diabetic treatment plan with routine checks. The stable adrenal cyst requires no immediate intervention. The patient's congestive heart failure, characterized by severe hypertrophy, is adequately monitored by cardiology and requires ongoing evaluation without change. Medication adherence should be reinforced, particularly for verapamil, to optimize therapeutic outcomes. A follow-up ultrasound and laboratory tests will ensure ongoing monitoring and management of his conditions.: Patient was informed and verbally consented to the use of an ambient scribe for clinic note documentation during this visit. I discussed with the patient the current management of his chronic conditions, specifically the necessity to address his elevated blood pressure and the importance of medication adherence. We reviewed his recent echocardiogram results, and I informed him that while he has significant ventricular hypertrophy, this is being managed through cardiology, and his current ejection fraction is adequate. The stability of his adrenal cyst was reaffirmed, highlighting no need for additional intervention. We agreed on the need for an upcoming ultrasound and scheduled labs to monitor his status. I provided education on maintaining diabetes control and the necessity for medication adherence to prevent complications from hypertension and heart failure. Orders: Orders Lipid Panel Today E78.5 - Hyperlipidemia, unspecified Comprehensive [place]. Panel Fast Today E78.5 - Hyperlipidemia, unspecified AMB Hemoglobin A1c Today E11.9 - Type 2 diabetes mellitus without complications US venous duplex UE LT Today M79.602 - Pain in left arm Microalbumin, Random (w Creat) Today R80.9 - Proteinuria, unspecified Patient Instructions: - Return for a blood pressure check in three weeks. - Continue current diabetes management and medications. - Ensure adherence to all medication regimens, particularly verapamil. - Maintain adequate water intake and hydration. - Attend follow-up appointments with cardiology and for planned ultrasound. - Schedule and complete fasting laboratory tests as discussed.
[2024-08-07 10:09] VITALS: BP 178/90; BMI 32.9
== END 2024-08-07 10:32 | disposition home or self-care (01) ==
LOC: HO.HMCH 10:02
PROVIDERS: PCP Internal Medicine; Visit Provider Internal Medicine
DX: E11.69 Type 2 diabetes mellitus with other specified complication (principal); I42.1 Obstructive hypertrophic cardiomyopathy; E27.8 Other specified disorders of adrenal gland; M79.602 Pain in left arm; E78.5 Hyperlipidemia, unspecified; I10 Essential (primary) hypertension

== ENCOUNTER → 2024-08-07 10:01 | Outpatient (BNVA) | payer OTHER, SELFPAY | PROVIDERS: PCP Internal Medicine; Visit Provider Internal Medicine | DX: M79.602 Pain in left arm (principal); E78.5 Hyperlipidemia, unspecified; I42.1 Obstructive hypertrophic cardiomyopathy; E11.9 Type 2 diabetes mellitus without complications; I10 Essential (primary) hypertension; E27.8 Other specified disorders of adrenal gland | CPT/HCPCS: 83036; 96127; 99212 ==

== ENCOUNTER 2024-08-07 14:48 | Outpatient (REF) | payer OTHER, SELFPAY ==
--- NOTE | ~2024-08-07 | US_ITS ---
CLINICAL HISTORY: M79.602 - Pain in left arm Left upper extremity venous duplex ultrasound Comparison: None Findings: The visualized deep veins are fully compressible with normal flow. Left level III lymph node measuring 1.2 x 0.6 x 0.9 cm with normal morphology. Impression: No deep vein thrombosis. This document has been electronically signed by: Kendal Gutierrez MD on 08/07/2024 17:33:17
--- OUTSIDE RECORDS SUMMARY | 2024-08-07 17:24 | XMS_ITS | Clinical Summary ---
Author Organization [employer] Address [address] [place] [address] Care Team Providers Care Activity Therapist Name Role Phone Unavailable Primary Care Provider Unavailabl e Allergies No known active allergies Medications albuterol 0.63 MG/3ML nebulizer solution Use with nebulizer machine every 6 hours as needed 7 Active atorvastatin (Lipitor) 20 MG tablet Take 20 mg by mouth at bedtime. 2 Active fluticasone (Flovent HFA) 220 MCG/ACT inhaler Inhale 1 puff every 12 (twelve) hours. 7 Active lisinopril 10 MG tablet Take 1 tablet by mouth at bed time. 8 Active verapamil ER (Verelan) 240 MG 24 hr capsule TAKE 1 CAPSULE BY MOUTH TWICE A DAY FOR 30 DAYS PLEASE CALL AND SCHEDULE CARDIOLOGY APPT 2 Active zolpidem (Ambien) 10 MG tablet take 1 tablet (10MG) by oral route at night before bedtime 8 Active Social History Tobacco Use Types Packs/Day Years Used Date Smoking Tobacco: Never Smokeless Tobacco: Never Tobacco Cessation:Counseling Given: Not Answered Alcohol Use Standard Drinks/Week Comments Not Currently 0 (1 standard drink = 0.6 oz pur e alcohol) Sex and Gender Information Value Date Recorded Sex Assigned at Male 03/23/2022 10:21 AM EDT Legal Sex Male 10:21 AM EDT Gender Identity Male 03/23/2022 10:21 AM EDT Sexual Orientation Straight 03/23/2022 10 :21 AM EDT Plan of Treatment Health Maintenance Due Date Last Done Comments Anal Pap 1971 CT Colonography 1971 Colonoscopy 1971 Colorectal Cancer Screening 1971 Dental Oral Exam 1971 Dental Prophylaxis 1971 Dental X-Ray: Bitewings 1971 Dental X-Ray: Full Mouth 1971 Depression Screening 1971 FIT DNA/Cologuard 1971 FIT 1971 FOBT 1971 HIV Screening 1971 Lipid Panel 1971 SDOH Screening 1971 Sigmoidoscopy 1971 Alcohol/Substance Use Screening 1983 Hepatitis C Screening 1989 Hepatitis B Vaccines (3 of 3 - 19+ 3-dose series) 11/30/2010 06/30/2010, 06/02/2010 Hepatitis A Vaccines (2 of 2 - Risk 2-dose series) 03/02/2012 09/01/2011 Pneumococcal Vaccine: 50+ Years (2 of 2 - PCV) 09/09/2015 09/08/2014, 02/26/2009 Pneumococcal Vaccine: Pediatrics (0 to 5 Years) and At-Risk Patients (6 to 49) Years) (2 of 2 - PCV) 09/09/2015 09/08/2014, 02/26/2009 Zoster Vaccines (1 of 2) 2021 Tobacco Screening 07/10/2023 07/10/2022 COVID-19 Vaccine (2 - 2023-2 5 season) 2024 07/02/2021 Influenza Vaccine (#1) 2024 8, 02/10/2012 DTaP/Tdap/Td Vaccines (3 - T d or Tdap) 02/17/2028 02/16/2018, 09/01/2011 RSV Patients and Patients Aged 60 years or older (1 - 1-dose 75+ series) 2046 HIB Vaccines Aged Out No longer eligi ble based on patient's age to complete this topic HPV Vaccines Aged Out No longer eligi ble based on patient's age to complete this topic IPV Vaccines Aged Out No longer eligi ble based on patient's age to complete this topic Meningococcal Vaccine Aged Out No hasmukh quoc eligible based on patient's age to complete this topic RSV under 20 months Aged Out No longe r eligible based on patient's age to complete this topic Rotavirus Vaccines Aged Out No longer eligible based on patient's age to complete this topic Insurance [facility] STANDARD [facility] MEDICAID STAND ADULT
--- OUTSIDE RECORDS SUMMARY | 2024-08-07 17:24 | XMS_ITS | Encounter Summary ---
Author Organization [employer] [facility] Address [address] [place] [address] Care Team Providers Care Cash Management Clerk Name Role Phone Unavailable Primary Care Provider Unavailabl e Encounter Details Date Type Department Care Team (Latest Contact Info) Description 07/18/2020 Abstract [facility] CONVERSIONS Dental, Provider, DDS Social History Tobacco Use Types Packs/Day Years Used Date Smoking Tobacco: Never Assessed Sex and Gender Information Value Date Recorded Sex Assigned at Male 03/23/2022 10:21 AM EDT Legal Sex Male 10:21 AM EDT Gender Identity Male 03/23/2022 10:21 AM EDT Sexual Orientation Straight 03/23/2022 10 :21 AM EDT documented as of this encounter Plan of Treatment Not on file documented as of this encounter Visit Diagnoses Not on filedocumented in this encounter
== END 2024-08-07 14:49 | disposition home or self-care (01) ==
LOC: HO.US 14:48
PROVIDERS: PCP Internal Medicine; Visit Provider Internal Medicine
DX: M79.602 Pain in left arm (principal)
CPT/HCPCS: 93971

== ENCOUNTER → 2024-08-07 14:54 | Outpatient (BNV) | payer OTHER, SELFPAY | PROVIDERS: PCP Internal Medicine; Visit Provider Radiology Diagnostic Radiology | DX: M79.602 Pain in left arm (principal) | CPT/HCPCS: 93971 ==

== ENCOUNTER 2024-08-11 21:14 | Emergency (ER) | payer OTHER, SELFPAY ==
--- NOTE | ~2024-08-11 | XR_ITS ---
CLINICAL HISTORY: pain Left wrist, 4 views COMPARISON: None FINDINGS: No acute fracture. No dislocation. Unremarkable soft tissues. IMPRESSION: No acute findings. This document has been electronically signed by: Augusto Morris MD on 08/12/2024 04:50:45
[2024-08-11 21:21] VITALS: BP 141/96; PULSE 73; RESP 18; TEMP 36.3; O2SAT 94; BMI 33.1
[2024-08-11 21:56] LABS: Alanine Aminotransferase 56 U/L (0-40); Albumin Level 4.6 g/dL (3.5-5.0); Alkaline Phosphatase 73 U/L (39-117); Anion Gap 11 (12-20); Aspartate Amino Transferase 37 U/L (5-37); Bilirubin Total 0.5 mg/dL (0.0-1.0); Blood Urea Nitrogen 10 mg/dL (9-16); Calcium 9.6 mg/dL (8.4-10.2); Carbon Dioxide 27 mmol/L (22-29); Chloride 105 mmol/L (96-108); Creatinine Clr Calc Pharmacy 126.8; Estimated Glomerular Filt Rate > 60; Glucose Random 107 mg/dL (60-115); Potassium 3.9 mmol/L (3.3-5.1); Sodium 139 mmol/L (135-145); Total Protein 8.5 g/dL (6.5-8.0)
[2024-08-11 22:35] LABS: Hematocrit 44.4 % (42.0-52.0); Hemoglobin 15.5 g/dl (14.0-18.0); Mean Corpuscular HGB Conc 34.9 g/dl (31.0-36.0); Mean Corpuscular Volume 80.3 fL (80.0-98.0); Mean Platelet Volume 9.8 fL (9.4-12.4); Platelet Count 173 X10*3/uL (160-400); Red Blood Count 5.53 X10*6/uL (4.60-5.80); Red Cell Distribution Width 13.2 % (11.0-16.0); White Blood Count 10.1 X10*3/uL (4.8-10.8)
--- NOTE | 2024-08-12 03:16 | ED_ITS ---
HPI - Extremity Problem General Chief complaint: Extremity Injury, Upper Stated complaint: left wrist itchy Time Seen by Provider: 08/12/24 03:16 Source: patient Mode of arrival: ambulatory Limitations: no limitations History of Present Illness ED Provider: HPI Narrative: Patient with chronic pain in the left arm for last 3 months was seen here on 08/07 negative for DVT still feels that veins have clot has poor sleep and anxiety are taking any medication for sleep no fall complaining of increased pain in the left wrist area Related Data Previous Rx's ?Medication ?Instructions ?Recorded miscellaneous medical supply 2 ea miscellaneous DAILY DX: E11.9 06/01/21 90 days #2 ea Ventolin HFA 90 mcg/actuation 2 puff inhalation Q6H PRN 01/28/23 aerosol inhaler (albuterol sulfate) shortness of breath or wheezing 30 days #8 grams acetaminophen 500 mg capsule 500 mg PO TID PRN pain #30 caps 06/08/23 verapamil 240 mg 24 hr 240 mg PO BID #180 caps 07/05/23 capsule,extended release clotrimazole-betamethasone 1 1 appl topical BID 2 weeks #15 08/13/23 %-0.05 % topical cream grams blood sugar diagnostic (FreeStyle #100 ea 09/30/23 Test strips) metformin 1,000 mg tablet 1,000 mg PO BID 90 days #180 tabs 11/01/23 carvedilol 6.25 mg tablet (Coreg) 6.25 mg PO BID #60 tabs 11/02/23 lorazepam 1 mg tablet (Ativan) 1 mg PO BEDTIME PRN anxiety/sleep 11/14/23 #10 tabs lancets 28 gauge (FreeStyle #100 ea 12/10/23 Lancets) diabetic shoes with inserts #1 ea 12/27/23 omeprazole 20 mg capsule,delayed 20 mg PO DAILY #90 caps 01/21/24 release atorvastatin 20 mg tablet 20 mg PO BEDTIME 90 days #90 tabs 06/06/24 cane #1 ea 06/11/24 empagliflozin 25 mg tablet 25 mg PO DAILY 90 days #90 tabs 06/14/24 (Jardiance) ibuprofen 600 mg tablet 600 mg PO Q6H PRN fever or pain 08/12/24 #30 tabs lorazepam 1 mg tablet (Ativan) 1 mg PO BEDTIME PRN anxiety/sleep 08/12/24 #10 tabs Allergies Allergy/AdvReac Type Severity Reaction Status Date / Time Contrast Dye Allergy Intermediate Hives Verified 08/11/24 21:25 Iodinated Contrast Media Allergy Mild HIVES Verified 08/11/24 21:25 [IV CONTRAST] Review of Systems 2 Review of Systems: Yes all other systems are reviewed and are negative PMFSH Past Medical History Medical History Hepatic steatosis Personal history of nicotine dependence Lumbar degenerative disc disease HOCM (hypertrophic obstructive cardiomyopathy) Anxiety and depression Diabetes mellitus Hypertrophic cardiomyopathy Hyperlipidemia Hypertension Surgical History History of carpal tunnel surgery History of right inguinal hernia repair History of cardiac cath Family History Family History Paternal Grandfather Heart disease Skin cancer Maternal Grandmother Skin cancer Maternal Grandfather Prostate cancer Father Prostate cancer Mother Diabetes Skin cancer Social History Social History Housing: Apartment Alcohol intake: former Patient Tobacco Use Status: Former Tobacco user Tobacco use type: Cigarette Years Smoked: (Former smoker - onset 7yo, 3-4ppd x 3years - 60+PYH - quit 2011) e-Cigarette/Vaping Use: Never Used Second Hand Smoke Exposure: No Advance Directives: No Advance Directives Information Provided: Yes service: No Current occupational status: employed Current occupational exposures/hazards: No Cognitive needs: No Hearing needs: No Vision needs: No Physical Exam 2 Vital Signs: Vital Signs: Last Vital Signs Temp 97.0 F 08/12/24 03:53 Pulse 69 08/12/24 03:53 Resp 16 08/12/24 03:53 BP 153/92 H 08/12/24 03:53 Pulse Ox 96 08/12/24 03:53 O2 Del Method Room Air 08/12/24 03:53 BMI result Body Mass Index 33.1 Appearance: Alert. Oriented X3. No acute distress. Anxious Eyes: No pallor or icterus ENT: Pharynx normal. Oral Mucosa moist Neck: Normal inspection. Neck supple. CVS: Normal heart rate and rhythm. Pulses normal. Respiratory: No respiratory distress. Equal air entry bilateral, no wheezing/rales/rhonchi Abdomen: Soft and nontender. Bowel sounds are present, no mass palpable, no CVA tenderness Skin: Skin warm and dry. Normal skin color. Normal skin turgor. Extremities: Left wrist focal tenderness at the base of the thumb, diffuse tenderness in left arm neurovascular intact Neuro: Oriented X 3. No motor deficit. No sensory deficit.No cerebellar signs , cranial nerves II-XII intact Medications Administered Discontinued Medications Generic Name Dose Route Start Last Admin Trade Name Donellq PRN Reason Stop Dose Admin Ibuprofen 600 mg 08/12/24 03:36 08/12/24 03:52 Ibuprofen 600 Mg Tablet PO 08/12/24 03:37 600 mg ONCE ONE Administration Medical Decision Making Lab Data [facility] Lab Attestation statement: I reviewed the patient's lab results. 08/11/24 21:35 08/11/24 21:35 Labs: Lab Results 08/11/24 Range/Units 21:35 WBC 10.1 (4.8-10.8) X10*3/uL RBC 5.53 (4.60-5.80) X10*6/uL Hgb 15.5 (14.0-18.0) g/dl Hct 44.4 (42.0-52.0) % MCV 80.3 (80.0-98.0) fL MCH 28.0 (27.0-33.0) pg MCHC 34.9 (31.0-36.0) g/dl RDW 13.2 (11.0-16.0) % Plt Count 173 (160-400) X10*3/uL MPV 9.8 (9.4-12.4) fL Absolute Nucleated RBC 0.000 (0.0-0.012) X10*3/uL Nucleated RBC % (auto) 0.0 (0.0-0.2) /100WBC Sodium 139 (135-145) mmol/L Potassium 3.9 (3.3-5.1) mmol/L Chloride 105 (96-108) mmol/L Carbon Dioxide 27 (22-29) mmol/L Anion Gap 11 L (12-20) BUN 10 (9-16) mg/dL Creatinine 0.84 (0.5-1.4) mg/dL Estim Creat Clear Calc 126.8 Estimated GFR > 60 Random Glucose 107 (60-115) mg/dL Calcium 9.6 (8.4-10.2) mg/dL Total Bilirubin 0.5 (0.0-1.0) mg/dL AST 37 (5-37) U/L ALT 56 H (0-40) U/L Alkaline Phosphatase 73 (39-117) U/L Total Protein 8.5 H (6.5-8.0) g/dL Albumin 4.6 (3.5-5.0) g/dL Independent Interpretation I performed an independent interpretation of an: Plain X-Ray Discharge Plan Discharge Clinical Impression: Pain in left forearm Patient Disposition: Home, Self-Care Instructions: Arthralgia (ED) Additional Instructions: Likely have musculoskeletal pain in her left forearm and the wrist area x-rays negative for fracture Wear the wrist splint for support Ibuprofen for pain Lorazepam for anxiety/sleep Follow up with your PCP Prescriptions: New ibuprofen 600 mg tablet 600 mg PO Q6H PRN (Reason: fever or pain) Qty: 30 0RF lorazepam [Ativan] 1 mg tablet 1 mg PO BEDTIME PRN (Reason: anxiety/sleep) Qty: 10 0RF No Action miscellaneous medical supply Kit 2 ea miscellaneous DAILY 90 Days Qty: 2 1RF Rx Instructions: DIABETIC SHOES size 11 albuterol sulfate [Ventolin HFA] 90 mcg/actuation HFA aerosol inhaler 2 puff inhalation Q6H PRN (Reason: shortness of breath or wheezing) 30 Days Qty: 8 1RF acetaminophen 500 mg capsule 500 mg PO TID PRN (Reason: pain) Qty: 30 0RF verapamil 240 mg capsule,ext rel. pellets 24 hr 240 mg PO BID Qty: 180 3RF clotrimazole-betamethasone 1-0.05 % cream 1 appl topical BID 14 Days Qty: 15 0RF (DME) FreeStyle Test Strip See Rx Instructions .ROUTE .MEDSUPPLY Qty: 100 11RF Rx Instructions: Use 1 test strip three times a day metformin 1,000 mg tablet 1,000 mg PO BID 90 Days Qty: 180 1RF (DME) lancets [FreeStyle Lancets] 28 gauge misc See Rx Instructions .Route Qty: 100 6RF Rx Instructions: Use 1 lancet TID (DME) diabetic shoes with inserts 12 See Rx Instructions .Route .MEDSUPPLY Qty: 1 0RF Rx Instructions: As directed atorvastatin 20 mg tablet 20 mg PO BEDTIME 90 Days Qty: 90 1RF (DME) cane Device See Rx Instructions .Route Qty: 1 0RF Rx Instructions: As directed Jardiance 25 mg tablet 25 mg PO DAILY 90 Days Qty: 90 1RF lorazepam [Ativan] 1 mg tablet 1 mg PO BEDTIME PRN (Reason: anxiety/sleep) Qty: 10 0RF omeprazole 20 mg capsule,delayed release(DR/EC) 20 mg PO DAILY Qty: 90 1RF carvedilol [Coreg] 6.25 mg tablet 6.25 mg PO BID Qty: 60 5RF Rx Instructions: must administer with a meal/food Print Language: Bengali
[2024-08-12] MEDS: Ibuprofen 600 MG TABLET PO (03:52)
[2024-08-12 03:53] VITALS: BP 153/92; PULSE 69; RESP 16; TEMP 36.1; O2SAT 96
[2024-08-12 05:10] VITALS: BP 147/96; PULSE 69; RESP 16; TEMP 36.2; O2SAT 95
== END 2024-08-12 05:17 | disposition home or self-care (01) ==
PROVIDERS: Emergency Provider Internal Medicine; PCP Internal Medicine
DX: M79.631 Pain in right forearm (principal); Z87.891 Personal history of nicotine dependence
CPT/HCPCS: 36415; 73110; 73130; 80053; 85027; 99283; 99284

== ENCOUNTER → 2024-08-12 03:36 | Outpatient (BNV) | payer OTHER, SELFPAY | PROVIDERS: Emergency Provider Internal Medicine; PCP Internal Medicine; Visit Provider Radiology Diagnostic Radiology | DX: M79.642 Pain in left hand (principal); M25.532 Pain in left wrist | CPT/HCPCS: 73110; 73130 ==

== ENCOUNTER 2024-08-22 07:11 | Outpatient (REF) | payer OTHER, SELFPAY ==
--- OUTSIDE RECORDS SUMMARY | 2024-08-22 07:15 | XMS_ITS | Clinical Summary ---
Author Organization [employer] Address [address] [place] [address] Care Team Providers Care Primary Mill Roller Name Role Phone Unavailable Primary Care Provider [...] patient's age to complete this topic Insurance [facility] STANDARD DENTAL-[facility] MEDICAID STAND ADULT
--- OUTSIDE RECORDS SUMMARY | 2024-08-22 07:15 | XMS_ITS | Encounter Summary ---
Author Organization [employer] [facility] Address [address] [place] [address] Care Team Providers Care Army Manager Name Role Phone Unavailable Primary Care Provider Unavailabl e Encounter Details Date Type Department Care Team (Latest Contact Info) Description 07/18/2020 Abstract [facility] CONVERSION[facility] Dental, Provider, DDS Social History Tobacco [...]
[2024-08-22 08:46] LABS: Alanine Aminotransferase 54 U/L (0-40); Albumin Level 4.4 g/dL (3.5-5.0); Alkaline Phosphatase 68 U/L (39-117); Anion Gap 9 (12-20); Aspartate Amino Transferase 37 U/L (5-37); Bilirubin Total 0.6 mg/dL (0.0-1.0); Blood Urea Nitrogen 11 mg/dL (9-16); Calcium 9.7 mg/dL (8.4-10.2); Carbon Dioxide 31 mmol/L (22-29); Chloride 104 mmol/L (96-108); Cholesterol 155 mg/dL (<200); Estimated Glomerular Filt Rate > 60; Glucose Fasting 157 mg/dL (60-99); HDL Cholesterol 26 mg/dL (>40); LDL Cholesterol Calculated 67 mg/dL (<100); Potassium 3.7 mmol/L (3.3-5.1); Sodium 140 mmol/L (135-145); Total Protein 7.7 g/dL (6.5-8.0); Triglycerides 314 mg/dL (<150)
[2024-08-22 08:47] LABS: Creatinine Urine 162.14 mg/dL; Microalbum/Creatinine Ratio Ur 30.8 ug/mg cr (<30)
== END 2024-08-22 07:12 | disposition home or self-care (01) ==
LOC: HO.LAB 07:11
PROVIDERS: PCP Internal Medicine; Visit Provider Internal Medicine
DX: E78.5 Hyperlipidemia, unspecified (principal); R80.9 Proteinuria, unspecified
CPT/HCPCS: 36415; 80053; 80061; 82043; 82570

== ENCOUNTER 2025-05-02 15:16 | Outpatient (AMB) | payer OTHER, SELFPAY ==
[2025-05-02 15:22] VITALS: BP 164/82; PULSE 81; O2SAT 98; BMI 33.7
--- NOTE | 2025-05-02 15:22 | MHC.PC.OV ---
Vital Signs 05/02/25 15:22 Height 5 ft 11 in Weight 242 lb BMI 33.7 BP 164/82 H Blood Pressure Location Lt brachial Position Sitting Pulse 81 Pulse Source Pulse Oximeter Pulse Oximetry (%) 98 Oxygen Delivery Method Room Air Intake Visit Reasons: annual exam Model Dresser Required: No Accompanied by: Self / Same As Patient Allergies Contrast Dye Allergy (Intermediate, Verified 05/02/25 15:35) Hives Iodinated Contrast Media (IV CONTRAST) Allergy (Mild, Verified 05/02/25 15:35) HIVES Medication List - Last Reconciled 05/02/25 by Maricarmen Medel MD acetaminophen 500 mg PO TID PRN atorvastatin 20 mg PO BEDTIME 90 days blood sugar diagnostic (FreeStyle Lite Strips) As directed- TID cane As directed carvedilol (Coreg) 6.25 mg PO BID clotrimazole-betamethasone 1-0.05 % 1 appl topical BID 2 weeks [diabetic shoes with inserts As directed] empagliflozin (Jardiance) 25 mg PO DAILY 90 days ibuprofen 600 mg PO Q6H PRN lancets (FreeStyle Lancets) USE 1 LANCET 3 TIMES A DAY lorazepam (Ativan) 1 mg PO BEDTIME PRN metformin 1,000 mg PO BID 90 days miscellaneous medical supply 2 ea miscellaneous DAILY 90 days omeprazole 20 mg PO DAILY Ventolin HFA 90 mcg/actuation (albuterol sulfate) 2 puffs inhalation Q6H PRN 30 days NS verapamil ER 240 mg PO BID Tobacco use date assessed: 08/07/24 Dental Screening Dental Screen Date: 08/07/24 HPI HPI Comments History of Present Illness Details The patient is a 54-year-old male presenting for physical exam. He has a history of hypertension and cardiomyopathy, for which he is followed by a italian lecturer. It is noted that he needs to reschedule a missed cardiology appointment. His surgical history includes a right inguinal hernia repair, carpal tunnel surgery, and a cardiac catheterization. Regarding preventative care, his last eye exam was last year. He declined the influenza and pneumonia vaccines during this visit. He has a known allergy to contrast dye. Review of laboratory results from some time ago showed his cholesterol and renal function were good while taking his cholesterol medication. He has a history of smoking and drinking alcohol but has quit. [facility] Medical History Hepatic steatosis Personal history of nicotine dependence Lumbar degenerative disc disease HOCM (hypertrophic obstructive cardiomyopathy) Anxiety and depression Diabetes mellitus Hypertrophic cardiomyopathy Hyperlipidemia Hypertension Surgical History History of carpal tunnel surgery History of right inguinal hernia repair History of cardiac cath Family History Paternal Grandfather Heart disease Skin cancer Maternal Grandmother Skin cancer Maternal Grandfather Prostate cancer Father Prostate cancer Mother Diabetes Skin cancer Social History Housing: Apartment Alcohol intake: former Patient Tobacco Use Status: Former Tobacco user Tobacco use type: Cigarette Years Smoked: (Former smoker - onset 7yo, 3-4ppd x 3years - 60+PYH - quit 2011) e-Cigarette/Vaping Use: Never Used Second Hand Smoke Exposure: No service: No Current occupational status: employed Current occupational exposures/hazards: No Cognitive needs: No Hearing needs: No Vision needs: No Questionnaire Thrive Questionnaire Date Thrive assessed: 08/07/24 MARYANN-7 AMB Questionnaire MARYANN-7 Date MARYANN - 7 assessed: 08/07/24 Source: Developed by Drs. Lucio Ralph, Joan Villarreal, Mayo Armendariz and colleagues, with an educational kaylee from [employer]. Review of Systems Const All systems reviewed & are unremarkable except as noted in HPI and below Card Denies chest pain at rest, Denies chest pain with activity, Denies edema, Denies irregular heart rhythm, Denies claudication, Denies dyspnea, Denies dyspnea on exertion, Denies orthopnea, Denies paroxysmal nocturnal dyspnea and Denies slow heart rate Resp Denies cough, Denies dyspnea and Denies dyspnea on exertion Physical exam (Primary Care) Vital Signs: Last Vital Signs Pulse 81 05/02/25 15:22 BP 164/82 H 05/02/25 15:22 Pulse Ox 98 05/02/25 15:22 Oxygen Delivery Method Room Air 05/02/25 15:22 BMI result Body Mass Index 33.7 Tobacco/Smoking Status: Tobacco use Status Tobacco use date assessed 08/07/24 05/02/25 15:23 Patient Tobacco Use Status Former Tobacco user 05/02/25 15:23 Tobacco use type Cigarette 05/02/25 15:23 e-Cigarette/Vaping Use Never Used 05/02/25 15:23 Thrive Assessment: Date of Thrive Assessment Date Thrive assessed 08/07/24 05/02/25 15:23 [facility] Head: Yes normal to inspection, Yes normocephalic and Yes atraumatic Ears: external ears normal Eyes General: appearance normal, both eyes and all related structures Eyelids: Yes eyelids normal Conjunctivae: conjunctivae normal Neck Neck: Yes normal visual inspection and Yes supple Resp Effort & Inspection: normal respiratory effort Auscultation: clear to auscultation bilaterally Cardio Jugular venous distension: no JVD Rate: regular rate Rhythm: regular rhythm Heart sounds: S1 normal heart sound present and S2 normal heart sound present GI Inspection: Yes normal to inspection Palpation (GI): Soft to palpation and nontender Auscultation: normal bowel sounds Skin General skin exam: no rashes or lesions noted Neuro General: no focal motor deficits Extrem General: Yes full ROM Psych Appearance: grossly normal Results AMB Hemoglobin A1c AMB Hemoglobin A1c 7.3 % Last Edit by Mari Quigley CMA on 05/02/25 15:47 Coding Level of Care Code Est Pt Prev Care 40-64y(18901) Diagnoses Physical exam Z00.00 HOCM (hypertrophic obstructive cardiomyopathy) I42.1 Type 2 diabetes mellitus without complication, without long-term current use of insulin E11.9 Diabetes mellitus type: type 2 Diabetes mellitus skilled nursing insulin use: without regional intermodal truck driver use Diabetes mellitus complication status: without complication Time Spent (min) 30 Assessment & Plan Assessment & Plan (1) Physical exam: Code(s): Z00.00 - Encounter for general adult medical examination without abnormal findings Category: Medical (2) HOCM (hypertrophic obstructive cardiomyopathy): Code(s): I42.1 - Obstructive hypertrophic cardiomyopathy Category: Medical (3) Diabetes mellitus: Code(s): E11.9 - Type 2 diabetes mellitus without complications Category: Medical Qualifiers: Diabetes mellitus type: type 2 Diabetes mellitus skilled nursing insulin use: without skilled nursing use Diabetes mellitus complication status: without complication Qualified Code(s): E11.9 - Type 2 diabetes mellitus without complications Plan Plan 1. Physical exam The patient is advised to continue follow-up with his italian lecturer for management of hypertension and cardiomyopathy. He was advised to call and reschedule his missed appointment. 2. Diabetes mellitus A1c goal is equal or less than 7%. Orders: Orders AMB Hemoglobin A1c Today Z13.9 - Encounter for screening, unspecified Lipid Panel 4 Months E78.5 - Hyperlipidemia, unspecified NT Pro B Type Natriuretic Pept 4 Months I42.1 - Obstructive hypertrophic cardiomyopathy Comprehensive [place]. Panel Fast 4 Months I42.1 - Obstructive hypertrophic cardiomyopathy
--- OUTSIDE RECORDS SUMMARY | 2025-05-02 23:48 | XMS_ITS | Encounter Summary ---
Author Organization [employer] Address [address] [place] [address] Care Team Providers Care Drag Seiner Name Role Phone Unavailable Primary Care Provider Unavailabl e Encounter Details Date Type Department Care Team (Latest Contact Info) Description 07/18/2020 Abstract [facility] CONVERSIONS Dental, Provider, DDS Social History Tobacco [...]
--- OUTSIDE RECORDS SUMMARY | 2025-05-02 23:48 | XMS_ITS | Clinical Summary ---
Author Organization [employer] Address [address] [place] [address] Care Team Providers Care Caddy Master Name Role Phone Unavailable Primary Care Provider [...] Panel 1971 SDOH Screening 1971 Sigmoidoscopy 1971 Disability Screening 1971 Alcohol/Substance Use Screening 1983 Hepatitis C Screening 1989 Hepatitis B Vaccines (3 of 3 - 19+ 3-dose series) 11/30/2010 06/30/2010, 06/02/2010 Hepatitis A Vaccines (2 of 2 - Risk 2-dose series) 03/02/2012 09/01/2011 Pneumococcal Vaccine: 50+ Years (2 of 2 - PCV) 09/09/2015 09/08/2014, 02/26/2009 RSV Patients and Patients Aged 60 years or older (1 - Risk 50-74 years 1-dose series) 2021 Zoster Vaccines (1 of 2) 2021 Tobacco Screening 07/10/2023 07/10/2022 COVID-19 Vaccine (2 - 2024-2 6 season) 2025 07/02/2021 Influenza Vaccine (#1) 2025 8, 02/10/2012 DTaP/Tdap/Td Vaccines (3 - T d or Tdap) 02/17/2028 02/16/2018, 09/01/2011 HIB Vaccines Aged Out No longer eligi ble based on patient's age to complete this topic HPV Vaccines Aged Out No longer eligi ble based on patient's age to complete this topic IPV Vaccines Aged Out No longer eligi ble based on patient's age to complete this topic Meningococcal B Vaccine Aged Out No l onger eligible based on patient's age to complete this topic Meningococcal Vaccine Aged Out No hasmukh quoc eligible based on patient's age to complete this topic RSV under 20 months Aged Out No longe r eligible based on patient's age to complete this topic Rotavirus Vaccines Aged Out No longer eligible based on patient's age to complete this topic Insurance [facility] STANDARD * Guarantor: Jefe Jasso Account Type Relation to Patient Date of Phone Billing Address Personal/Family Self [address] [place]
--- OUTSIDE RECORDS SUMMARY | 2025-05-02 23:48 | XMS_ITS | Clinical Summary ---
Author Organization [facility] Address [address] [place] [id number] Phone Care Team Providers Care Cms Expert Name Role Phone Maricarmen Dan MD Primary Care Provid er Medications verapamiL (VERELAN) 240 MG 24 hr capsule Take 1 capsule by mouth 2 (two) times a day. 3 Active lisinopril (PRINIVIL,ZESTRIL ) 10 MG tablet Take 1 tablet by mouth every morning. 3 Active FREESTYLE 28 gauge lancets 1 each 3 (three) times a day. 3 Active TRULICITY 0.75 mg/0.5 mL subcutaneous injection Inject 0.75 mg under the skin once a week. 3 Active FREESTYLE LITE Strp strips 1 each 3 (three) times a day. 3 Active VENTOLIN HFA 90 mcg/actuation inhaler Inhale 2 puffs into the lungs every 6 (six) hours as needed. 3 Active Family History Medical History Relation Comments Prostate cancer Father Prostate cancer Maternal Grandfather Skin cancer Maternal Grandmother Diabetes Mother Skin cancer Mother Heart disease Paternal Grandfather Skin cancer Paternal Grandfather Relation Status Comments Father Maternal Grandfather Maternal Grandmother Mother Paternal Grandfather Social History Tobacco Use Types Packs/Day Years Used Date Smoking Tobacco: Never Assessed Education Answer Date Recorded Are you interested in more education? Not on portia e 11/19/2022 Are you concerned about learning? Not on file 11/19/2022 No 11/19/2022 No 11/19/2022 Digital Access Answer Date Recorded No 11/19/2022 No 11/19/2022 Reliable internet access at home? Not on file 11/19/2022 Device with a working camera? Not on file Sex and Gender Information Value Date Recorded Sex Assigned at Not on file Legal Sex Male 3:07 PM EDT Gender Identity Not on file Sexual Orientation Not on file Plan of Treatment Health Maintenance Due Date Last Done Comments Adult Td,Tdap Booster 1971 CREATININE LEVEL 1971 LIPID PANEL 1971 POTASSIUM LEVEL 1971 DEPRESSION SCREENING 1983 SMOKING Hx and SMOKELESS TOB ACCO SCREENING 1984 HEPATITIS C SCREENING 1989 HIV ONE-TIME SCREENING (18-6 5 YEARS) 1989 COLOGUARD 2016 COLONOSCOPY 2016 COLORECTAL CANCER SCREENING 2016 FIT TEST 2016 FOBT 2016 SIGMOIDOSCOPY 2016 VIRTUAL COLONOSCOPY 2016 PNEUMOCOCCAL VACCINES (50+ y ears) (1 of 1 - PCV) 2021 ZOSTER VACCINES (1 of 2) 2021 INFLUENZA VACCINE (#1) 2024 COVID-19 VACCINE (1 - 2024-2 6 season) 2025 RSV VACCINE (1 - 1-dose 75+ series) 2046 HEPATITIS A VACCINES Aged Out No long er eligible based on patient's age to complete this topic HIB VACCINES Aged Out No longer eligi ble based on patient's age to complete this topic MENINGOCOCCAL VACCINES (ACWY) Aged Out No longer eligible based on patient's age to complete this topic MENINGOCOCCAL VACCINES (B) Aged Out N o longer eligible based on patient's age to complete this topic Medical Devices Not on file Insurance [facility] [place] [address] [address] [place] [address] [place] [address] [place] [address] ACO [facility]CO [facility] A[facility] Care Teams Cms Expert Relationship Specialty Start Date End Date Maricarmen Dan MD [address] [place] [address] PCP - General Internal Medicine 11/17/22 Additional Source Comments The information contained in this document represents components of the legal health record. It is not the complete legal health record.[facility]
== END 2025-05-02 15:49 | disposition home or self-care (01) ==
LOC: HO.HMCH 15:16
PROVIDERS: PCP Internal Medicine; Visit Provider Internal Medicine
DX: Z00.00 Encounter for general adult medical examination without abnormal findings (principal); I42.1 Obstructive hypertrophic cardiomyopathy; E11.9 Type 2 diabetes mellitus without complications; Z13.9 Encounter for screening, unspecified

== ENCOUNTER → 2025-05-02 15:16 | Outpatient (BNVA) | payer OTHER, SELFPAY | PROVIDERS: PCP Internal Medicine; Visit Provider Internal Medicine | DX: Z00.00 Encounter for general adult medical examination without abnormal findings (principal); I42.1 Obstructive hypertrophic cardiomyopathy; E11.9 Type 2 diabetes mellitus without complications; E78.5 Hyperlipidemia, unspecified | CPT/HCPCS: 83036; 99396 ==

== ENCOUNTER 2025-05-16 05:45 | Emergency (ER) | payer OTHER, SELFPAY ==
--- NOTE | ~2025-05-16 | XR_ITS ---
EXAMINATION: XR CHEST CLINICAL INFORMATION: cough COMPARISON: X-ray 01/27/2023 TECHNIQUE: Frontal view of the chest was obtained. FINDINGS: The cardiomediastinal silhouette is within normal limits. Slightly low lung volumes.. There is no focal consolidation, edema, or effusion. No pneumothorax. No acute osseous abnormality. XR/XR chest 1V IMPRESSION: No acute consolidation. Electronically signed by: Chase Mullins MD 05/16/2025 07:33 AM [facility] [place]
[2025-05-16 06:11] VITALS: BP 147/93; PULSE 88; RESP 17; TEMP 36.8; O2SAT 95; BMI 33.5
--- OUTSIDE RECORDS SUMMARY | 2025-05-16 06:23 | XMS_ITS | Encounter Summary ---
Author Organization [employer] Address [address] [place] [address] Care Team Providers Care Floor Layer Apprentice Name Role Phone Unavailable Primary Care Provider Unavailabl e Encounter Details Date Type Department Care Team (Latest Contact Info) Description 07/18/2020 Abstract [facility] CONVERSIONS Dental, Provider, DDS Social History [...]
--- OUTSIDE RECORDS SUMMARY | 2025-05-16 06:23 | XMS_ITS | Clinical Summary ---
Author Organization [facility] Address [address] [place] [id number] Care Team Providers Care Media Reconciliation Specialist Name Role Phone Maricarmen Nguyễn Primary Care Provider [phone] Maricarmen Nguyễn Unavailable [phone] Donato Davila MD Unavailable Allergies Active Allergy Reactions Criticality Noted Date Comments Iodinated Contrast Media Hives 10/21/2022 Medications FREESTYLE LITE STRIPS Strp USE 1 TEST STRIP THREE TIMES A DAY 3 Active freestyle 28 gauge lancets USE TO CHECK BLOOD SUGARS 3 TIMES A DAY 3 Active verapamil ER (VERELAN) 240 MG 24 hr capsule TAKE 1 CAPSULE BY MOUTH TWICE A DAY X30 DAYS 3 Active VENTOLIN HFA 90 mcg/actuation inhaler INHALE 2 PUFFS BY MOUTH EVERY 6 HOURS NEEDED FOR DYSPNEA 3 Active metFORMIN (GLUCOPHAGE) 1000 MG tablet Take 1 tablet (1,000 mg total) by mouth 2 times a day with breakfast & dinner. Active lisinopriL (ZESTRIL) 10 MG tablet Take 1 tablet (10 mg total) by mouth daily. 3 Active Active Problems No known active problems Family History Medical History Relation Comments Prostate cancer Father Prostate cancer Maternal Grandfather Skin cancer Maternal Grandmother Diabetes Mother Heart disease Paternal Grandfather Skin cancer Paternal Grandfather Relation Status Comments Father Maternal Grandfather Maternal Grandmother Mother Paternal Grandfather Social History Tobacco Use Types Packs/Day Years Used Date Smoking Tobacco: Former Cigarettes 0 Q uit: 2010 Smokeless Tobacco: Never Alcohol Use Standard Drinks/Week Comments Never 0 (1 standard drink = 0.6 oz pur e alcohol) [employer] - Occupational Stress Questionnaire Answer Date Recorded Do you feel stress - tense, restless, nervous, or anxious, or unable to sleep at night because your mind is troubled all the time - these days? Only a little 10/28/2022 Exercise Vital Sign Answer Date Recorde d On average, how many days pe r week do you engage in moderate to strenuous exercise (like a brisk walk)? 0 days 10/28/2022 On average, how many minutes do you engage in exercise at this level? 0 min 10/28/2022 Sex and Gender Information Value Date Recorded Sex Assigned at Not on file Legal Sex Male 12:44 PM EDT Gender Identity Male 08/28/2022 12:47 PM EDT Sexual Orientation Not on file Last Filed Vital Signs Vital Sign Reading Time Taken Comments Blood Pressure 109/72 10/28/2022 1:36 PM EDT Pulse 74 10/28/2022 1:36 PM EDT Temperature - - Respiratory Rate 16 10/28/2022 1:36 PM EDT Oxygen Saturation 96% 10/28/2022 1:36 PM EDT Inhaled Oxygen Concentration - - Weight 113 kg (250 lb) 10/28/2022 1:36 PM EDT Height 182.9 cm (6') 10/28/2022 1:36 PM EDT Body Mass Index 33.91 10/28/2022 1:36 PM EDT Plan of Treatment Health Maintenance Due Date Last Done Comments Blood Pressure 1971 Lipid Panel 1971 PSA 1971 Prostate Cancer Screening 1971 SDM 1971 Depression Screening 1983 Hepatitis C Screening 1989 DTaP,Tdap,and Td Vaccines (1 - Tdap) 1990 CT Colonography 2016 Colonoscopy 2016 Colorectal Cancer Screening 2016 FIT 2016 FOBT 2016 Multitarget Stool DNA (Cologuard) 2016 Sigmoidoscopy 2016 Pneumococcal Vaccine: 50+ Ye ars (1 of 1 - PCV) 2021 Zoster Vaccine (1 of 2) 2021 COVID-19 Vaccine (1 - 2024-2 6 season) 2025 Influenza Vaccine (#1) 2025 Meningococcal B Vaccines Aged Out No longer eligible based on patient's age to complete this topic Meningococcal Vaccines Aged Out No lo nger eligible based on patient's age to complete this topic Insurance [facility] Care Teams Media Reconciliation Specialist Relationship Specialty Start Date End Date Maricarmen Nguyễn [address] PCP - General 08/28/22 Maricarmen Nguyễn [address] [address] PCP - Insurance Assigned PCP 08/28/22 Donato Davila MD [address] [place], [place] [address] [place] [address] Referring Physician Cardiology 10/23/22
--- OUTSIDE RECORDS SUMMARY | 2025-05-16 06:23 | XMS_ITS | Clinical Summary ---
Author Organization [employer] Address [address] [place] [address] Care Team Providers Care Visual Arts Teacher Name Role Phone Unavailable Primary Care Provider [...] patient's age to complete this topic Insurance [facility] * Guarantor: Jefe Jasso Account Type Relation to Patient Date of Phone Billing Address Personal/Family Self [address] [place]
--- OUTSIDE RECORDS SUMMARY | 2025-05-16 06:23 | XMS_ITS | Clinical Summary ---
Author Organization [facility] Address [address] [facility] [address] [place] [id number] Phone Care Team Providers Care All Around Presser Name Role Phone Maricarmen Dan MD Primary [...] topic Medical Devices Not on file Insurance [facility] [place] [address] [place] [address] [place] [address] [place] [address] ACO [facility] A[employer] [facility] Care Teams All Around Presser Relationship Specialty Start Date End Date Maricarmen Dan MD [address] [place] [address] PCP - General Internal Medicine 11/17/22 Additional Source Comments The information contained in this document represents components of the legal health record. It is not the complete legal health record.[facility]
[2025-05-16 06:54] LABS: IDNOW Serial# 58CA691E; Strep A Nucleic Acid Negative (Negative)
--- NOTE | 2025-05-16 07:05 | ED.GENADULT ---
HPI - General Adult General Chief complaint: Upper Respiratory Symptoms Stated complaint: gen med Time Seen by Provider: 05/16/25 06:14 Source: patient and application support analyst Mode of arrival: ambulatory Limitations: no limitations History of Present Illness ED Provider: DR. Reyna HPI narrative: a 55-year-old male came in for evaluation of sore throat, dry cough for 2 days, sinus /facial pressures, no exposure to sick contacts. No fever, no chills, no difficulty breathing. Related Data Previous Rx's ?Medication ?Instructions ?Recorded miscellaneous medical supply 2 ea miscellaneous DAILY DX: E11.9 06/01/21 90 days #2 ea diabetic shoes with inserts #1 ea 12/27/23 cane #1 ea 06/11/24 lorazepam 1 mg tablet (Ativan) 1 mg PO BEDTIME PRN anxiety/sleep 08/12/24 #10 tabs Ventolin HFA 90 mcg/actuation 2 puff inhalation Q6H PRN 08/23/24 aerosol inhaler (albuterol sulfate) shortness of breath or wheezing 30 days #8 grams acetaminophen 500 mg capsule 500 mg PO TID PRN pain #30 caps 08/23/24 carvedilol 6.25 mg tablet (Coreg) 6.25 mg PO BID #60 tabs 08/23/24 clotrimazole-betamethasone 1 1 appl topical BID 2 weeks #15 08/23/24 %-0.05 % topical cream grams empagliflozin 25 mg tablet 25 mg PO DAILY 90 days #90 tabs 08/23/24 (Jardiance) omeprazole 20 mg capsule,delayed 20 mg PO DAILY #90 caps 08/23/24 release verapamil 240 mg 24 hr 240 mg PO BID #180 caps 08/23/24 capsule,extended release blood sugar diagnostic (FreeStyle #100 ea 11/02/24 Lite Strips) atorvastatin 20 mg tablet 20 mg PO BEDTIME 90 days #90 tabs 03/17/25 metformin 1,000 mg tablet 1,000 mg PO BID 90 days #180 tabs 03/17/25 lancets 28 gauge (FreeStyle #100 ea 04/24/25 Lancets) amoxicillin 500 mg tablet 2,000 mg (4 x 500 mg) PO ONCE 1 05/03/25 day #4 tabs ibuprofen 600 mg tablet 600 mg PO Q6H PRN fever or pain 05/04/25 #30 tabs amoxicillin 500 mg-potassium 1 tab PO Q12H #14 tabs 05/16/25 clavulanate 125 mg tablet (Augmentin) oseltamivir 75 mg capsule (Tamiflu) 75 mg PO BID 5 days #10 caps 05/16/25 Allergies Allergy/AdvReac Type Severity Reaction Status Date / Time Contrast Dye Allergy Intermediate Hives Verified 05/16/25 06:13 Iodinated Contrast Media (IV Allergy Mild HIVES Verified 05/16/25 06:13 CONTRAST) Review of Systems Review of Systems: All other systems are reviewed and are negative Constitutional: Reports as per HPI and Reports no additional constitutional complaints Eyes: Reports as per HPI and Reports no additional eye complaints Reports system reviewed and no additional complaints, except as documented Cardiovascular: Reports as per HPI and Reports no additional cardiovascular complaints Respiratory: Reports as per HPI and Reports no additional respiratory complaints Gastrointestinal: Reports as per HPI and Reports no additional gastrointestinal complaints Genitourinary: Reports no additional female genitourinary complaints Musculoskeletal: Reports no additional musculoskeletal complaints Skin/Breast: Reports system reviewed and no additional complaints, except as docu Psychiatric: Reports no additional psychiatric complaints Endocrine: Reports no additional endocrine complaints Hematologic/Lymphatic: Reports no additional hematologic/lymphatic complaints Allergic/Immunologic: Reports no additional allergic/immunologic complaints Reports system reviewed and no additional complaints, except as documented and Reports Abnormal speech present [facility] Past Medical History Medical History Hepatic steatosis Personal history of nicotine dependence Lumbar degenerative disc disease HOCM (hypertrophic obstructive cardiomyopathy) Anxiety and depression Diabetes mellitus Hypertrophic cardiomyopathy Hyperlipidemia Hypertension Surgical History History of carpal tunnel surgery History of right inguinal hernia repair History of cardiac cath Family History Family History Paternal Grandfather Heart disease Skin cancer Maternal Grandmother Skin cancer Maternal Grandfather Prostate cancer Father Prostate cancer Mother Diabetes Skin cancer Social History Social History Housing: Apartment Alcohol intake: former Patient Tobacco Use Status: Former Tobacco user Tobacco use type: Cigarette Years Smoked: (Former smoker - onset 7yo, 3-4ppd x 3years - 60+PYH - quit 2011) e-Cigarette/Vaping Use: Never Used Second Hand Smoke Exposure: No Advance Directives: No Advance Directives Information Provided: Yes Do you have a plan to hurt others: No Plan service: No Current occupational status: employed Current occupational exposures/hazards: No Cognitive needs: No Hearing needs: No Vision needs: No Physical Exam ED Vital Signs: Vital Signs - 24 hr 05/16/25 06:11 05/16/25 08:07 Temperature 98.3 F 97.6 F Pulse Rate 88 77 Respiratory Rate 17 14 Blood Pressure 147/93 H 172/96 H Pulse Oximetry 95 95 Oxygen Delivery Method Room Air Room Air BMI result Body Mass Index 33.5 Vital signs have been reviewed and appear to be correct. Blood pressure elevated. Heart rate normal. Respiratory rate normal. Temperature normal. Oxygen saturation normal. Appearance: Alert. Oriented X3. No acute distress. Head: Normal external exam. Normocephalic. Atraumatic. No Lora signs noted. No raccoon eyes noted Eyes: PERRLA. EOMI. Conjunctiva and sclera normal. Eyelids normal. ENT: left TM erythema, Painful examination, Pharynx normal. Uvula midline. Moist mucous membranes. Right frontal / maxillary sinus tenderness on percussion. Neck: Normal inspection. Neck supple. FROM. No adenopathy. Thyroid Normal. No meningeal signs. No neck mass noted. CVS: Normal heart rate and rhythm. Heart sound normal. No murmurs noted. Pulses normal throughout. Respiratory: No respiratory distress. Painless inspiration. Breath sounds normal. No wheezes/rales/rhonchi noted. Chest nontender. No accessory muscle usage noted or decreased air movement noted. Abdomen: Soft and nontender. Bowel sounds normal in all 4 quadrants. No distention noted. No organomegaly noted. No visible injury noted. Back: No CVA tenderness. Full range of motion noted. Skin: Skin warm and dry. Normal skin color. Normal skin turgor. No rashes/lesions/lacerations noted. Extremities: No lower extremity edema. Extremities exhibit normal range of motion. Extremities nontender. Neuro: Oriented X 3. Cranial nerve exam: II-XII are grossly intact No motor deficit. No sensory deficit. Reflexes normal. Course Reevaluation(s) Reevaluation #1: +influenza x2 days will start on Tamiflu. Left ear erythema/ sinusitis will start on Augmentin 7 days. Time: 09:22 Medications Administered Discontinued Medications Generic Name Dose Route Start Last Admin Trade Name Kel PRN Reason Stop Dose Admin Amoxicillin/Clavulanate Potassium 500 mg 05/16/25 07:45 05/16/25 08:10 Amoxicillin/Potassium Clav 500 Mg Tablet PO 05/16/25 07:46 500 mg ONCE ONE Administration Oseltamivir Phosphate 75 mg 05/16/25 07:45 05/16/25 08:10 Oseltamivir Phosphate 75 Mg Capsule PO 05/16/25 07:46 75 mg ONCE ONE Administration Medical Decision Making Differential Diagnosis Differential Diagnoses: The differential diagnosis associated with the presentation includes ( Otitis media, strep pharyngitis, sinusitis, influenza, COVID-19, RSV, pneumonia, pneumothorax, pleural effusion.) Admission/Observation Consideration of admission/observation: Escalation of care including admission/observation considered Lab Data MDM Lab Attestation statement: I reviewed the patient's lab results. Labs: Lab Results 05/16/25 Range/Units 06:31 Influenza Type A (PCR) POSITIVE A (Negative) Influenza Type B (PCR) NEGATIVE (Negative) RSV RNA Qual (PCR) NEGATIVE (Negative) SARS-CoV-2 RNA (RT-PCR) NEGATIVE (Negative) S. pyogenes GrpA JOHN Negative (Negative) Independent Interpretation I performed an independent interpretation of an: Plain X-Ray ( Chest: No acute consolidation) Radiology Impression Discussion of test interpretation with radiology: I have reviewed the radiologist's reading. Discharge Plan Discharge Clinical Impression: Influenza A, Sinusitis, acute Patient Disposition: Home, Self-Care Instructions: Influenza (ED) Additional Instructions: self quarantine until symptoms free. Came social distancing, wear face mask at all times, frequent hand washing. Prescriptions: New oseltamivir [Tamiflu] 75 mg capsule 75 mg PO BID 5 Days Qty: 10 0RF amoxicillin-pot clavulanate [Augmentin] 500-125 mg tablet 1 tab PO Q12H Qty: 14 0RF No Action miscellaneous medical supply Kit 2 ea miscellaneous DAILY 90 Days Qty: 2 1RF Rx Instructions: DIABETIC SHOES size 11 (DME) diabetic shoes with inserts 12 See Rx Instructions .Route .MEDSUPPLY Qty: 1 0RF Rx Instructions: As directed (DME) cane Device See Rx Instructions .Route Qty: 1 0RF Rx Instructions: As directed acetaminophen 500 mg capsule 500 mg PO TID PRN (Reason: pain) Qty: 30 0RF carvedilol [Coreg] 6.25 mg tablet 6.25 mg PO BID Qty: 60 5RF Rx Instructions: must administer with a meal/food clotrimazole-betamethasone 1-0.05 % cream 1 appl topical BID 14 Days Qty: 15 0RF Jardiance 25 mg tablet 25 mg PO DAILY 90 Days Qty: 90 1RF omeprazole 20 mg capsule,delayed release(DR/EC) 20 mg PO DAILY Qty: 90 1RF albuterol sulfate [Ventolin HFA] 90 mcg/actuation HFA aerosol inhaler 2 puff inhalation Q6H PRN (Reason: shortness of breath or wheezing) 30 Days Qty: 8 1RF verapamil 240 mg capsule,ext rel. pellets 24 hr 240 mg PO BID Qty: 180 3RF (DME) FreeStyle Lite Strips Strip See Rx Instructions .Route Qty: 100 11RF Rx Instructions: As directed- TID atorvastatin 20 mg tablet 20 mg PO BEDTIME 90 Days Qty: 90 1RF metformin 1,000 mg tablet 1,000 mg PO BID 90 Days Qty: 180 1RF (DME) lancets [FreeStyle Lancets] 28 gauge misc See Rx Instructions .ROUTE .COMPLEX Qty: 100 6RF Dose Instruction: USE 1 LANCET 3 TIMES A DAY Rx Instructions: USE 1 LANCET 3 TIMES A DAY amoxicillin 500 mg tablet 2,000 mg PO ONCE 1 Days Qty: 4 0RF ibuprofen 600 mg tablet 600 mg PO Q6H PRN (Reason: fever or pain) Qty: 30 0RF lorazepam [Ativan] 1 mg tablet 1 mg PO BEDTIME PRN (Reason: anxiety/sleep) Qty: 10 0RF Print Language: Micronesian
[2025-05-16 07:13] LABS: Resp Syncy Virus RNA Qual PCR NEGATIVE (Negative); SARS COV2 PCR INHOUSE NEGATIVE (Negative)
[2025-05-16 08:07] VITALS: BP 172/96; PULSE 77; RESP 14; TEMP 36.4; O2SAT 95
[2025-05-16 09:26] VITALS: BP 172/96; PULSE 77; RESP 14; TEMP 36.4; O2SAT 95
== END 2025-05-16 09:27 | disposition home or self-care (01) ==
PROVIDERS: Emergency Provider Emergency Medicine
DX: J10.1 Influenza due to other identified influenza virus with other respiratory manifestations (principal); J01.80 Other acute sinusitis; R05.9 Cough, unspecified; Z03.818 Encounter for observation for suspected exposure to other biological agents ruled out; Z87.891 Personal history of nicotine dependence
CPT/HCPCS: 71045; 87637; 87651; 99283